=== PATIENT | female | born 1985 | race Caucasian/White ===

== ENCOUNTER → 2023-07-04 | Outpatient (CLI) | payer BC, SELFPAY | END | disposition home or self-care (01) | LOC: LABSPEC 15:56 | PROVIDERS: Referring Provider Internal Medicine Pulmonary Disease; Visit Provider Internal Medicine Pulmonary Disease | DX: G47.411 Narcolepsy with cataplexy (principal) ==

== ENCOUNTER → 2023-07-18 | Outpatient (CLI) | payer BC, SELFPAY ==
[2023-07-18 18:26] LABS: Amphetamine Urine VISTA NEGATIVE (<1000 ng/mL); Barbiturate Urine VISTA NEGATIVE (< 200 ng/mL); Benzodiazepine Urine VISTA NEGATIVE (< 200 ng/mL); Cocaine Urine VISTA NEGATIVE (< 300 ng/mL); Ecstacy Urine VISTA NEGATIVE (< 500 ng/mL); Methadone Urine VISTA NEGATIVE (< 300 ng/mL); PCP Urine VISTA NEGATIVE (< 25 ng/mL); THC Urine VISTA NEGATIVE (< 50 ng/mL); Vista UDS pH Range 6
== END | disposition home or self-care (01) ==
PROVIDERS: Referring Provider Internal Medicine Pulmonary Disease; Visit Provider Internal Medicine Pulmonary Disease
DX: G47.411 Narcolepsy with cataplexy (principal)
CPT/HCPCS: 80307

== ENCOUNTER → 2024-02-11 | Outpatient (CLI) | payer BC, SELFPAY ==
[2024-02-11 18:58] LABS: Amphetamine Urine VISTA NEGATIVE (<1000 ng/mL); Barbiturate Urine VISTA NEGATIVE (< 200 ng/mL); Benzodiazepine Urine VISTA NEGATIVE (< 200 ng/mL); Cocaine Urine VISTA NEGATIVE (< 300 ng/mL); Ecstacy Urine VISTA NEGATIVE (< 500 ng/mL); Methadone Urine VISTA NEGATIVE (< 300 ng/mL); PCP Urine VISTA NEGATIVE (< 25 ng/mL); THC Urine VISTA NEGATIVE (< 50 ng/mL); Vista UDS pH Range 6
== END | disposition home or self-care (01) ==
PROVIDERS: Referring Provider Internal Medicine Pulmonary Disease; Visit Provider Internal Medicine Pulmonary Disease
DX: G47.411 Narcolepsy with cataplexy (principal)
CPT/HCPCS: 80307

== ENCOUNTER → 2025-01-07 | Outpatient (CLI) | payer BC, SELFPAY ==
--- NOTE | 2025-01-07 18:56 | CT_ITS ---
PROCEDURE: SINUS/FACIAL BONE REASON FOR EXAM: FISTULA TECHNIQUE: CT of the paranasal sinuses without contrast. Coronal and Sagittal reconstruction series were provided. One or more dose reduction techniques were used (e.g., Automated exposure control, adjustment of the mA and/or kV according to patient size, use of iterative reconstruction technique). COMPARISON: None FINDINGS: Mild bilateral maxillary and left sphenoid sinus mucosal thickening. Tiny fluid level in the right maxillary sinus. 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 Ethmoid air cells and frontal sinuses are clear. Patent bilateral ostiomeatal units and sphenoethmoidal recesses. Turbinates are symmetric and intact. Moderate rightward nasal septal deviation. Mastoid air cells and middle ear cavities are clear. Temporomandibular joints are intact. CT/Sinus/Facial Bone IMPRESSION: 1. 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 2. Minimal bilateral maxillary and left sphenoid sinus mucosal thickening as ab ove. 3. Moderate rightward nasal septal deviation. Reading Location: [place]
--- OUTSIDE RECORDS SUMMARY | 2025-01-07 19:28 | XMS RPT_ITS | CCD ---
Author Organization [facility] Care Team Providers Care Heel Molder Name Role Phone Nicholasdamiencarmel Sheryl Unavailable Unavailable Pending Provider Unavailable Unavailable None, No PCP Unavailable Unavailable Marcelle Aiken Unavailable Unavailable Molly Cohen Unavailable Unavailable Sheryl Baldwin Unavailable Unav ailable Roz Jose Armando V Unavailable Unavailable Armando Carmona Unavailable Unavailable Andreina Singh Unavailable Unavailable TIRSO ALEX Attending Unavaila TIRSO Rodarte Attending Unavaila Molly Moon Unavailable Unavailable Unavailable Free, Text Entry Unavailable Unavailable Molly Cohen Unavailable Scot Vargas Unavailable Wendi Banuelos Unavailable Umberto Cano Unavailable UnavailMolly Sanchez DO Primary Care Provider Harris Mcdaniels Unavailable Unavailable Sheryl Mesa Unavailable Unav ailable Bruno Beck Unavailable Dr. Molly Cohen Attending Unavailable Mali, Dr. Nelson Referring Unavailable Dr. Molly Cohen Primary Care Unavailable Dr. Molly Cohen Primary Care Unavailable Mali, Dr. Nelson Attending Unavailable Mali, Dr. Nelson Referring Unavailable Wendi Banuelos Attending Unavailable Mali, Dr. Nelson Primary Care Unavailable Mali, Dr. Nelson Primary Care Unavailable Mali, Dr. Nelson Attending Unavailable Mali, Dr. Nelson Referring Unavailable Mali, Dr. Nelson Primary Care Unavailable Mali, Dr. Nelson Attending Unavailable Mali, Dr. Nelson Referring Unavailable Cohen, Dr. Nelson Referring Unavailable Cohen, Dr. Nelson Attending Unavailable Cohen, Dr. Nelson Primary Care Unavailable Cohen, Dr. Nelson Referring Unavailable Cohen, Dr. Nelson Attending Unavailable Cohen, Dr. Nelson Primary Care Unavailable Cohen, Dr. Nelson Referring Unavailable Cohen, Dr. Nelson Attending Unavailable Cohen, Dr. Nelson Primary Care Unavailable Cohen DO, Molly A Primary Care Provider Cohen DOBitaMolly A Unavailable Cohen DO, Molly Primary Care Provider [phone] COHEN, MOLLY Primary Care Unavailable ANDREINA SINGH Attending Unavailable Mcdaniels, Dr. Harris Louis Attending Unavaila ble COHEN, DO WALLACETH Primary Care Unavailable Sibilia, Jose Armando V Attending Unavailable Sibilia, Jose Armando V Referring Unavailable Care Physician, No Primary Primary Care Unava ilable Sibilia, Jose Armando V Attending Unavailable Care Physician, No Primary Primary Care Unava ilable Sibilia, Jose Armando V Referring Unavailable Sibilia, Jose Armando V Attending Unavailable Sibilia, Jose Armando V Referring Unavailable Care Physician, No Primary Primary Care Unava ilable COHEN, MOLLY A Attending Unavailable COHEN, MOLLY A Primary Care Unavailable COHEN, MOLLY A Attending Unavailable COHEN, MOLLY A Primary Care Unavailable COHEN, MOLLY A Referring Unavailable COHEN, MOLLY A Primary Care Unavailable COHEN, MOLLY A Referring Unavailable COHEN, MOLLY A Primary Care Unavailable COHEN, MOLLY A Primary Care Unavailable CAROLYN SAAVEDRA Attending Unavailable CAROLYN SAAVEDRA Referring Unavailable COHEN, MOLLY A Primary Care Unavailable Medications Current Medications Medication Drug Class(es) Dates Sig (Normalized) Sig (Original) [id number] 200 actuat albuterol 0.09 mg/actuat metered dose inhaler (2 sources) beta2-Adrenergic Agonist Start: 08-02-2024 End: 09-01-2024 take 2 puff(s) by inhalation every four hours for wheezing albuterol 90 mcg/actuation inhaler Indications: Acute cough Inhale 2 puffs every 4 hours if needed for wheezing or shortness of breath. 18 g 08/02/2024 09/01/2024 Active amoxicillin 875 mg / clavulanate 125 mg oral tablet (17 sources) Penicillin-class Antibacterial Start: 07-06-2024 End: 07-13-2024 take 1 tablet by mouth twice daily amoxicillin-pot clavulanate (Augmentin) 875-125 mg tablet Indications: Acute cough Take 1 tablet by mouth 2 times a day for 7 days. 14 tablet 07/06/2024 07/13/2024 Active Start: 09-10-2022 take 1 tablet by haley once daily Amoxicillin-Pot Clavulanate 875-125 MG Oral Tablet TAKE 1 TABLET EVERY 12 HOURS DAILY. Quantity: 14 Refills: 0 Ordered: 10-Sep-2022 Mali WILKINSON Molly Start : 10-Sep-2022 Active Start: 11-27-2020 End: 05-03-2021 take 1 tablet by mouth once daily Amoxicillin-Pot Clavulanate 875-125 MG Oral Tablet TAKE 1 TABLET EVERY 12 HOURS DAILY. Quantity: 14 Refills: 0 Ordered: 17-Apr-2021 Marcelle Keyes Start : 27-Nov-2020 End : 03-May-2021 Complete amphetamine aspartate 2.5 mg / amphetamine sulfate 2.5 mg / dextroamphetamine saccharate 2.5 mg / dextroamphetamine sulfate 2.5 mg oral tablet (20 sources) Central Nervous System Stimulant Start: 05-24-2021 End: 07-06-2024 dextroamphetamine-amphetamin e (ADDERALL) 10 mg tablet Start: 01-23-2015 End: 07-06-2024 take 1 tablet by mouth twice daily Dextroamphetamine-Amphetamine (Adderall 20 Mg Tablet) 20 MG tablet Active 20 MG PO TWICE A DAY January 22, 2015 11:00pm benzonatate 100 mg oral capsule (4 sources) Non-narcotic Antitussive Start: 07-06-2024 take 1 capsule by mouth three times daily as needed for cough benzonatate (Tessalon) 100 mg capsule Indications: Acute cough Take 1 capsule (100 mg) by mouth 3 times a day as needed for cough. Do not crush or chew. 30 capsule 07/06/2024 Active busPIRone hydrochloride 5 mg oral tablet (6 sources) Start: 06-04-2023 End: 07-06-2024 take 1 tablet by mouth twice daily as needed for anxiety busPIRone (Buspar) 5 mg tablet Indications: Anxiety Take 1 tablet (5 mg) by mouth 2 times a day as needed (anxiety). 60 tablet 1 10/22/2023 07/06/2024 Discontinued (Therapy completed) calcium chloride 0.0014 meq/ml / potassium chloride 0.004 meq/ml / sodium chloride 0.103 meq/ml / sodium lactate 0.028 meq/ml injectable solution (4 sources) Start: 06-10-2023 lactated Ringer's infusion Start: 05-13-2023 lactated Ringe r's infusion cephalexin 500 mg oral capsule (3 sources) Cephalosporin Antibacterial Start: 05-01-2023 End: 05-07-2023 take 1 capsule by mouth four times daily cephalexin 500 mg oral capsule ; 1 cap(s) orally 4 times a day Quantity: 28 Refills: 0 Ordered: 01-May-2023 Harris Mcdaniels Start: 01-May-2023 End: 07-May-2023 Generic Substitution Allowed Comments: Finish all this medication unless otherwise directed by prescriber. Start: 09-03-2021 take 1 tablet by haley four times daily Cephalexin 500 MG Oral Tablet TAKE 1 TABLET 4 TIMES DAILY Quantity: 20 Refills: 0 Ordered: 03-Sep-2021 Molly Cohen DO Start : 03-Sep-2021 Active Comment on above: Finish all this medi cation unless otherwise directed by prescriber. cetirizine hydrochloride 10 mg oral tablet (20 sources) Histamine-1 Receptor Antagonist Start: 05-24-20 End: 05-12-20 cetirizine (ZYRTEC) 10 MG tablet ciprofloxacin 500 mg oral tablet (1 source) Quinolone Antimicrobial Start: 05-13-20 End: 05-16-20 23 take 0.5 tablet by mouth twice daily ciprofloxacin (Cipro) 500 mg tablet Indications: Other hydronephrosis , Calculus of ureter Take 0.5 tablets (250 mg) by mouth 2 times a day for 3 days. 3 tablet 0 05/13/2023 05/16/2023 Active clindamycin 300 mg oral capsule (2 sources) Lincosamide Antibacterial Start: 08-02-20 24 End: 08-12-19 25 take 1 capsule by mouth three times daily clindamycin (Cleocin) 300 mg capsule Indications: Dental cavity Take 1 capsule (300 mg) by mouth 3 times a day for 10 days. 30 capsule 08/02/2024 08/12/2024 Active escitalopram 20 mg oral tablet (11 sources) Serotonin Reuptake Inhibitor Start: 10-02-19 End: 10-01-19 take 1 tablet by mouth once daily escitalopram (Lexapro) 20 mg tablet Indications: Anxiety Take 1 tablet (20 mg) by mouth once daily. 90 tablet 1 10/02/2023 07/06/2024 Discontinued (Therapy completed) Start: 06-04-2023 End: 12-01-2023 take 1 tablet by mouth once daily escitalopram (Lexapro) 10 mg tablet Indications: Anxiety Take 1 tablet (10 mg) by mouth once daily. 30 tablet 1 08/07/2023 10/02/2023 Discontinued (Reorder) Start: 12-25-2022 End: 05-12-2023 take 1 tablet by mouth once daily escitalopram (Lexapro) 10 mg tablet Indications: Anxiety Take 1 tablet (10 mg) by mouth once daily. 90 tablet 0 12/25/2022 05/12/2023 Discontinued (Other) Start: 03-27-2022 take 1 tablet by haley once daily Escitalopram Oxalate 10 MG Oral Tablet Take 1 tablet daily Quantity: 30 Refills: 3 Ordered: 27-Mar-2022 Molly Cohen DO Start : 27-Mar-2022 Active fluconazole 150 mg oral tablet (16 sources) Azole Antifungal Start: 07-06-2024 End: 07-06-2024 take 1 tablet by mouth once, then take 1 tablet by mouth every other day fluconazole (Diflucan) 150 mg tablet Indications: Acute cough Take 1 tablet (150 mg) by mouth 1 time for 1 dose. Take additional tablet 2d later if still having symptoms 2 tablet 07/06/2024 07/06/2024 Active Start: 05-01-2023 End: 05-01-2023 take 1 tablet by mouth once daily Diflucan 150 mg oral tablet ; 1 tab(s) orally once a day Quantity: 1 Refills: 0 Ordered: 01-May-2023 Harris Mcdaniels Start: 01-May-2023 End: 01-May-2023 Generic Substitution Allowed Comments: Do not take this drug if you are .Finish all this medication unless otherwise directed by prescriber. Start: 05-08-2022 Fluconazole 15 0 MG Oral Tablet TAKE 1 TABLET ONCE. MAY REPEAT IN 2 DAYS.. Quantity: 2 Refills: 0 Ordered: 03-Jul-2022 Mali WILKINSON Molly Start : 03-Jul-2022 Active Start: 07-05-2021 Fluconazole 15 0 MG Oral Tablet TAKE 1 TABLET ONCE. MAY REPEAT IN 2 DAYS.. Quantity: 2 Refills: 0 Ordered: 03-Sep-2021 Cohen Molly WILKINSON Start : 05-Jul-2021 Active Comment on above: Do not take this walter g if you are .Finish all this medication unless otherwise directed by prescriber. HYDROmorphone (2 sources) Opioid Agonist Start: 06-10-20 23 HYDROmorphone (Dilaudid) injection 0.5 mg hydrOXYzine pamoate 25 mg oral capsule (3 sources) Antihistamine Start: 06-04-20 23 End: 07-06-20 24 hydrOXYzine pamoate (VistariL) 25 mg capsule Indications: Anxiety Take 1 capsule (25 mg) by mouth as needed at bedtime for anxiety for up to 10 days. 30 capsule 1 06/04/2023 07/06/2024 Discontinued (Therapy completed) labetalol hydrochloride 5 mg/ml injectable solution (1 source) beta-Adrenergic Kortney Start: 05-13-20 labetaloL (Normodyne,Trandate) injection 5 mg loratadine 10 mg oral tablet (4 sources) take 1 tablet by mouth once daily as needed Claritin 10 mg oral tablet ; 1 tab(s) orally once a day, As Needed Quantity: 0 Refills: 0 Ordered: 18-May-2020 Starr Waite Status: Other Generic Substitution Allowed 1 ml meperidine hydrochloride 25 mg/ml cartridge (1 source) Opioid Agonist Start: 06-10-20 meperidine (PF) (Demerol) injection 12.5 mg 1 ml morphine sulfate 4 mg/ml prefilled syringe (2 sources) Opioid Agonist Start: 05-13-20 morphine injection 4 mg Start: 05-13-2023 morphine injec tion 2 mg Multivitamin preparation (5 sources) take 1 tablet by mouth once daily Multiple Vitamins oral tablet ; 1 tab(s) orally once a day Quantity: 0 Refills: 0 Ordered: 30-Jun-2020 Nadege Hoyos Generic Substitution Allowed naproxen sodium 550 mg oral tablet (4 sources) Nonsteroidal Anti-inflammatory Drug Start: 6 End: 6 take 550 mg by mouth every twelve hours as needed Naproxen Sodium Active 550 MG PO EVERY 12 HOURS NEEDED December 27, 2015 6:56am omeprazole 20 mg delayed release oral capsule (20 sources) Proton Pump Inhibitor Start: 1 End: 3 omeprazole (PRILOSEC) 20 MG capsule Start: 10-23-2015 take 10 mg by mouth once daily Omeprazole Active 10 MG PO DAILY October 22, 2015 11:00pm PriLOSEC ; orall y once a day Quantity: 0 Refills: 0 Ordered: 04-Apr-2020 Viviana Carl Status: Discontinued Generic Substitution Allowed 2 ml ondansetron 2 mg/ml injection (4 sources) Serotonin-3 Receptor Antagonist Start: 06-10-2023 End: 06-10-2023 ondansetron (Zofran) injection 4 mg Start: 05-13-2023 End: 05-13-2023 ondansetron (Zofran) injecti on 4 mg oxyCODONE hydrochloride 5 mg oral tablet (2 sources) Opioid Agonist Start: 06-10-2023 take 1 tablet by mouth every four hours as needed oxyCODONE (Roxicodone) immediate release tablet 5 mg Start: 05-13-2023 take 1 tablet by haley th every four hours as needed oxyCODONE (Roxicodone) immediate release tablet 5 mg oxygen (O2) therapy (1 source) Start: 06-10-2023 oxygen (O2) therapy phenazopyridine hydrochloride 200 mg oral tablet (1 source) Start: 05-13-2023 End: 05-20-2023 take 1 tablet by mouth three times daily as needed for muscle spasms phenazopyridine (Pyridium) 200 mg tablet Indications: Other hydronephrosis , Calculus of ureter Take 1 tablet (200 mg) by mouth 3 times a day as needed for bladder spasms for up to 7 days. 21 tablet 0 05/13/2023 05/20/2023 Active prenat.vits,misti,min- iron-folic Tab (2 sources) prenat.vits,misti, min -iron-folic Tab Take by mouth . 0 Active 1 oral capsule (4 sources) take 1 capsule by mouth once daily 1 oral capsule ; orally once a day Quantity: 0 Refills: 0 Ordered: 04-Apr-2020 Viviana Carl Status: Discontinued Generic Substitution Allowed Vit No.[id number] ( Vitamin Tablet) 1 EACH tablet (2 sources) Start: 01-23-2015 Vit No.[id number] ( Vitamin Tablet) 1 EACH tablet Active 1 EACH PO DAILY January 22, 2015 11:00pm promethazine hydrochloride 25 mg oral tablet (4 sources) Phenothiazine Start: 10-05-2019 take 1 tablet by mouth three times daily for nausea and vomiting promethazine 25 mg oral tablet ; 1 tab(s) orally 3 times a day, As Needed -for nausea and vomiting Quantity: 12 Refills: 0 Ordered: 04-Oct-2019 Kody Fernandez I Start: 04-Oct-2019 Status: Discontinued Generic Substitution Allowed Comments: May cause drowsiness. Alcohol may intensify this effect. Use care when operating dangerous machinery.Obtain medical advice before taking any non-prescription drugs as some may affect the action of this medication. Comment on above: May cause drowsiness . Alcohol may intensify this effect. Use care when operating dangerous machinery.Obtain medical advice before taking any non-prescription drugs as some may affect the action of this medication. promethazine (Phenergan) 6.25 mg in sodium chloride 0.9% 50 mL IV (2 sources) Start: 06-10-2023 promethazine (Phenergan) 6.25 mg in sodium chloride 0.9% 50 mL IV Start: 05-13-2023 End: 05-13-2023 promethazine (Phenergan) 6.2 5 mg in sodium chloride 0.9% 50 mL IV 72 hr scopolamine 0.0139 mg/hr transdermal system (1 source) Anticholinergic Start: 06-10-2023 scopolamine (Transderm-Scop) patch 1 patch tretinoin 0.25 mg/ml topical cream (12 sources) Retinoid Start: 10-22-2023 End: 07-06-2024 tretinoin (Retin-A) 0.025 % cream Indications: Chronic idiopathic urticaria Apply 1 Application topically once daily at bedtime. 45 g 1 10/22/2023 07/06/2024 Discontinued (Therapy completed) Start: 12-25-2021 Tretinoin 0.02 5 % External Cream APPLY SPARINGLY TO AFFECTED AREA(S) ONCE DAILY AT BEDTIME. Quantity: 1 Refills: 1 Ordered: 25-Dec-2021 Mali WILKINSON Molly Start : 25-Dec-2021 Active Start: 05-28-2021 End: 05-12-2023 tretinoin (Retin-A) 0.025 % cream Apply 1 Application topically once daily at bedtime. Apply sparingly to affected area once daily at bedtime 0 12/25/2021 05/12/2023 Discontinued (Other) triamcinolone acetonide 1 mg/ml topical cream (20 sources) Corticosteroid Start: 04-25-2021 triamcinolone (KENALOG) 0.1 % cream Start: 01-26-2021 End: 04-25-2021 Triamcinolone Acetonide 0.1 % External Cream APPLY A THIN LAYER TO AFFECTED AREA(S) TWICE DAILY. Quantity: 1 Refills: 0 Ordered: 26-Jan-2021 Molly Cohen DO Start : 26-Jan-2021 End : 25-Apr-2021 Complete Start: 11-27-2020 End: 05-12-2023 triamcinolone (Kenalog) 0.1 % cream Apply 1 Application topically in the morning and 1 Application before bedtime. 0 11/27/2020 05/12/2023 Discontinued (Other) Start: 11-27-2020 Triamcinolone Acetonide 0.1 % External Cream APPLY A THIN LAYER TO AFFECTED AREA(S) TWICE DAILY. Quantity: 1 Refills: 0 Ordered: 28-Dec-2021 Molly Cohen DO Start : 27-Nov-2020 Active Start: 11-27-2020 Triamcinolone Acetonide 0.1 % External Cream APPLY A THIN LAYER TO AFFECTED AREA(S) TWICE DAILY. Quantity: 1 Refills: 0 Ordered: 03-Sep-2021 Molly Cohen DO Start : 27-Nov-2020 Active Start: 11-27-2020 Triamcinolone Acetonide 0.1 % External Cream APPLY A THIN LAYER TO AFFECTED AREA(S) TWICE DAILY. Quantity: 1 Refills: 0 Ordered: 25-Apr-2021 Attila 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CAROLYNNMarcelle Start : 27-Nov-2020 Active Start: 11-27-2020 Triamcinolone Acetonide 0.1 % External Cream APPLY A THIN LAYER TO AFFECTED AREA(S) TWICE DAILY. Quantity: 1 Refills: 0 Ordered: 27-Nov-2020 Molly Cohen DO Start : 27-Nov-2020 Active Completed/Discontinued Medications Medication Drug Class(es) Dates Sig (Normalized) Sig (Original) acetaminophen 325 mg oral tablet (2 sources) Start: 06-10-2023 End: 06-10-2023 acetaminophen (Tylenol) tablet 975 mg Start: 05-13-2023 End: 05-13-2023 acetaminophen (Tylenol) tabl et 975 mg acetaminophen 325 mg / HYDROcodone bitartrate 10 mg oral tablet (7 sources) Opioid Agonist Start: 06-10-2023 End: 10-02-2023 take 1 tablet by mouth every six hours for pain HYDROcodone-acetaminophen (Elmira) 10-325 mg tablet Indications: Kidney stone Take 1 tablet by mouth every 6 hours if needed for severe pain (7 - 10). 20 tablet 0 06/10/2023 10/02/2023 Discontinued (Therapy completed) Start: 05-13-2023 End: 06-04-2023 take 1 tablet by mouth every six hours for pain HYDROcodone-acetaminophen (Elmira) 10-325 mg tablet Indications: Other hydronephrosis , Calculus of ureter Take 1 tablet by mouth every 6 hours if needed for severe pain (7 - 10). 20 tablet 0 05/13/2023 06/04/2023 Discontinued (Therapy completed) Start: 05-01-2023 take 1 tablet by haley th every six hours hydrocodone-acetaminophen 5 mg-325 mg or al tablet ; 1 tab(s) orally every 6 hours Quantity: 12 Refills: 0 Ordered: 01-May-2023 Harris Mcdaniels Start: 01-May-2023 Generic Substitution Allowed Comments: Caution federal law prohibits the transfer of this drug to any person other than the person for whom it was prescribed.May cause drowsiness. Alcohol may intensify this effect. Use care when operating dangerous machinery.This product contains acetaminophen. Do not use with any other product containing acetaminophen to prevent possible liver damage.Using more of this medication than prescribed may cause serious breathing problems. Comment on above: Caution federal law prohibits the transfer of this drug to any person other than the person for whom it was prescribed.May cause drowsiness. Alcohol may intensify this effect. Use care when operating dangerous machinery.This product contains acetaminophen. Do not use with any other product containing acetaminophen to prevent possible liver damage.Using more of this medication than prescribed may cause serious breathing problems. acetaminophen 325 mg / oxyCODONE hydrochloride 5 mg oral tablet (5 sources) Opioid Agonist Start: 05-05-20 End: 05-12-20 take 1 tablet by mouth every six hours for pain oxyCODONE-acetaminop hen (Percocet) 5-325 mg tablet Indications: Right ureteral calculus , Acute flank pain Take 1 tablet by mouth every 6 hours if needed for severe pain (7 - 10) for up to 7 days. 5 tablet 0 05/05/2023 05/12/2023 Discontinued (Other) Start: 12-27-2015 End: 12-27-2015 take 1 tablet by mouth every six hours as needed Oxycodone-Acetaminophen Active 1 - 2 TABLET PO EVERY 6 HOURS NEEDED December 27, 2015 6:56am Multivitamin TABS (3 sources) Vitamin C Multivitamin TAB S TAKE 1 TABLET DAILY. Refills: 0 Active Multivitamin TAB S TAKE 1 TABLET DAILY. Refills: 0 DO Active azithromycin 250 mg oral tablet (6 sources) Macrolide Antimicrobial Start: 07-05-2021 Azithromycin 250 MG Oral Tablet TAKE 2 TABLETS ON DAY 1 THEN TAKE 1 TABLET A DAY FOR 4 DAYS. Quantity: 1 Refills: 0 Ordered: 05-Jul-2021 Molly Cohen DO Start : 05-Jul-2021 Active benzocaine 0.2 mg/mg oral gel (20 sources) Standardized Chemical Allergen Start: 07-25-2020 End: 05-12-2023 benzocaine (Anbesol, benzocaine, Max Str) 20 % mucosal gel Take by mouth. 0 07/25/2020 05/12/2023 Discontinued (Other) Start: 07-25-2020 Anbesol Maximu m Strength 20 % Mouth/Throat Gel USE DIRECTED. Quantity: 3 Refills: 2 Ordered: 25-Jul-2020 Molly Cohen DO Start : 25-Jul-2020 Active brompheniramine maleate 0.4 mg/ml / dextromethorphan hydrobromide 2 mg/ml / pseudoephedrine hydrochloride 6 mg/ml oral solution (1 source) alpha-Adrenergic Agonist, Uncompetitive W-mjxzyv-T-aspartate Receptor Antagonist, Sigma-1 Agonist Start: 07-03-2022 take 5 mL by mouth every four to six hours as needed Embcarcub-Tlfzusmi-HC 30-2-10 MG/5ML Oral Syrup TAKE 5 ML EVERY 4 TO 6 HOURS NEEDED. Quantity: 1 Refills: 0 Ordered: 03-Jul-2022 Molly Cohen DO Start : 03-Jul-2022 Active 1 ml dexamethasone phosphate 10 mg/ml injection (2 sources) Corticosteroid Start: 06-10-2023 End: 06-10-2023 dexAMETHasone (PF) (Decadron) injection 10 mg Start: 05-13-2023 End: 05-13-2023 dexAMETHasone (PF) (Decadron ) injection 8 mg diphenhydrAMINE hydrochloride 25 mg oral capsule (5 sources) Histamine-1 Receptor Antagonist Start: 05-07-2020 End: 05-08-2020 take 1 capsule by mouth every four hours as needed Allergy Relief (Diphenhydramine HCl) 25 mg oral capsule ; 1 cap(s) orally every 4 hours, As Needed Quantity: 100 Refills: 0 Ordered: 07-May-2020 Eliud Quinones Start: 07-May-2020 End: 08-May-2020 Generic Substitution Allowed Comments: May cause drowsiness. Alcohol may intensify this effect. Use care when operating dangerous machinery.Obtain medical advice before taking any non-prescription drugs as some may affect the action of this medication. Comment on above: May cause drowsiness . Alcohol may intensify this effect. Use care when operating dangerous machinery.Obtain medical advice before taking any non-prescription drugs as some may affect the action of this medication. [id number] 0.3 ml EPINEPHrine 1 mg/ml auto-injector (20 sources) alpha-Adrenergic Agonist, beta-Adrenergic Agonist, Catecholamine Start: 09-26-2020 End: 09-26-2020 inject 0.3 mg by intramuscular injection once EPINEPHrine 0.3 mg injectable kit ; 0.3 milligram(s) intramuscularly once Quantity: 1 Refills: 0 Ordered: 26-Sep-2020 Rafi Groves Start: 26-Sep-2020 End: 26-Sep-2020 Generic Substitution Allowed Comments: Obtain medical advice before taking any non-prescription drugs as some may affect the action of this medication. Start: 07-13-2020 inject 0.3 mL by int ramuscular injection once EPINEPHrine 0.3 MG/0.3ML Injection Solution Auto-injector INJECT 0.3ML INTRAMUSCULARLY DIRECTED. Quantity: 2 Refills: 1 Ordered: 10-Jul-2021 Sheryl Lin DO Start : 13-Jul-2020 Active Must use [facility] [id number] per insurance. Start: 06-30-2020 End: 07-02-2020 EpiPen 2-Igor 0.3 mg injectab le kit ; 0.3 milligram(s) intramuscularly prn Quantity: 2 Refills: 2 Ordered: 30-Jun-2020 Rolo Quinonesew Start: 30-Jun-2020 End: 02-Jul-2020 Generic Substitution Allowed Comments: Obtain medical advice before taking any non-prescription drugs as some may affect the action of this medication. Start: 05-28-2020 EpiPen 2-Igor 0 .3 mg injectable kit ; 0.3 milligram(s) intramuscularly once, As Needed -for allergy symptoms /anaphylaxis Quantity: 1 Refills: 0 Ordered: 28-May-2020 Nanette Polk Start: 28-May-2020 Generic Substitution Allowed Comments: Obtain medical advice before taking any non-prescription drugs as some may affect the action of this medication. Start: 05-02-2020 Auvi-Q 0.3 MG/ 0.3ML Injection Solution Auto-injector INJECT 0.3ML INTRAMUSCULARLY DIRECTED. Quantity: 1 Refills: 2 Ordered: 02-May-2020 Sheryl Lin DO Start : 02-May-2020 Active Start: 05-02-2020 Auvi-Q 0.3 MG/ 0.3ML Injection Solution Auto-injector INJECT 0.3ML INTRAMUSCULARLY DIRECTED. Quantity: 1 Refills: 2 Sheryl Lin DO Start : 02-May-2020 Active 2 Unit Pen Start: 05-01-2020 End: 05-12-2023 EPINEPHrine 0.3 mg/0.3 mL injection syringe Inject 0.3 mL (0.3 mg) as directed. As Directed 0 05/01/2020 05/12/2023 Discontinued (Other) Start: 05-01-2020 EPINEPHrine (E PIPEN) 0.3 mg/0.3 mL AtIn Start: 05-01-2020 EPINEPHrine 0. 3 MG/0.3ML Injection Solution Auto-injector INJECT 0.3ML INTRAMUSCULARLY DIRECTED. Quantity: 2 Refills: 1 Riley Sheryl Start : 13-Jul-2020 Active 2 Unit Pen Comment on above: Obtain medical advic e before taking any non-prescription drugs as some may affect the action of this medication. 2 ml famotidine 10 mg/ml injection (20 sources) Histamine-2 Receptor Antagonist Start: 06-10-2023 End: 06-10-2023 famotidine PF (Pepcid) injection 20 mg Start: 2020 End: 05-12-2023 famotidine (PEPCID) 40 MG ta blet take 1 tablet by haley th once daily Pepcid 20 mg oral tablet ; 1 tab(s) orally once a day Quantity: 0 Refills: 0 Ordered: 30-Jun-2020 Rusiska, Nadege Generic Substitution Allowed Comment on above: It is very important that you take or use this exactly as directed. Do not skip doses or discontinue unless directed by your doctor.Obtain medical advice before taking any non-prescription drugs as some may affect the action of this medication. fluticasone propionate 0.05 mg/actuat metered dose nasal spray (5 sources) Corticosteroid Start: 11-21-19 End: 05-12-20 take 1 spray(s) nasal route in the morning fluticasone (Flonase) 50 mcg/actuation nasal spray Administer 1 spray into each nostril in the morning and 1 spray before bedtime. 0 11/20/2022 05/12/2023 Discontinued (Other) Start: 07-03-2022 take 1 spray(s) nasa l route twice daily Fluticasone Propionate 50 MCG/ACT Nasal Suspension USE 1 SPRAY IN EACH NOSTRIL TWICE DAILY. Quantity: 1 Refills: 1 Ordered: 10-Sep-2022 Molly Cohen DO Start : 10-Sep-2022 Active levETIRAcetam 750 mg oral tablet (4 sources) Start: 05-18-2020 End: 05-31-2020 take 1 tablet by mouth twice daily Keppra 750 mg oral tablet ; 1 tab(s) orally 2 times a day x 14 days Quantity: 28 Refills: 0 Ordered: 18-May-2020 Kody Fernandez I Start: 18-May-2020 End: 31-May-2020 Status: Discontinued Generic Substitution Allowed Comments: Check with your doctor before becoming .It is very important that you take or use this exactly as directed. Do not skip doses or discontinue unless directed by your doctor.May cause drowsiness or dizziness.Obtain medical advice before taking any non-prescription drugs as some may affect the action of this medication.Swallow whole. Do not crush.This drug may impair the ability to drive or operate machinery. Use care until you become familiar with its effects. Comment on above: Check with your doct or before becoming .It is very important that you take or use this exactly as directed. Do not skip doses or discontinue unless directed by your doctor.May cause drowsiness or dizziness.Obtain medical advice before taking any non-prescription drugs as some may affect the action of this medication.Swallow whole. Do not crush.This drug may impair the ability to drive or operate machinery. Use care until you become familiar with its effects. Lidocaine (2 sources) Antiarrhythmic, Amide Local Anesthetic Start: 06-07-2021 End: 06-07-2021 lidocaine 20 mg/mL (2 %) injection 3 mL meloxicam 7.5 mg oral tablet (2 sources) Nonsteroidal Anti-inflammatory Drug Start: 05-26-2020 take 1 tablet by mouth once daily at mealtime Meloxicam 7.5 MG Oral Tablet TAKE 1 TABLET DAILY WITH FOOD. Quantity: 14 Refills: 0 Marcelle Keyes Start : 26-May-2020 Active 5 ml midazolam 1 mg/ml injection (1 source) Benzodiazepine Start: 06-10-2023 End: 06-10-2023 midazolam (Versed) injection 1 mg multivitamin tablet (2 sources) End: 05-12-2023 take 1 tablet by mouth once daily multivitamin tablet Take 1 tablet by mouth once daily. 0 05/12/2023 Discontinued (Other) take 1 tablet by mouth once sarmad y multivitamin tablet Take 1 tablet by mouth once daily. 0 Active Multivitamin TABS (20 sources) Multivitamin TAB S TAKE 1 TABLET DAILY. Quantity: 0 Refills: 0 Ordered: 27-Jun-2020 DO Active 1 ml omalizumab 150 mg/ml prefilled syringe (20 sources) Anti-IgE Start: 07-13-2020 Xolair 150 MG/ML Subcutaneou s Solution Prefilled Syringe 150mg/ml prefilled syringe, Give 300mg subcutaneously today Quantity: 1 Refills: 0 Ordered: 22-Jun-2021 Sheryl Lin DO Start : 22-Jun-2021 Active R Deltoid Start: 07-04-2020 Xolair 150 MG/ ML Subcutaneous Solution Prefilled Syringe 300 mg subcutaneous injection every 4 weeks Quantity: 2 Refills: 11 Ordered: 22-Jun-2021 Sheryl Lin DO Start : 04-Jul-2020 Active Prior Auth Approved #[id number], from 12/19/2020 - 12/19/2021 predniSONE 10 mg oral tablet (20 sources) Start: 06-28-2021 End: 07-02-2021 take 5 tablets by mouth once daily at mealtime predniSONE 10 mg oral tablet ; 5 tab(s) orally once a day Quantity: 25 Refills: 0 Ordered: 28-Jun-2021 Harris Mcdaniels Start: 28-Jun-2021 End: 02-Jul-2021 Generic Substitution Allowed Comments: It is very important that you take or use this exactly as directed. Do not skip doses or discontinue unless directed by your doctor.Obtain medical advice before taking any non-prescription drugs as some may affect the action of this medication.Take with food or milk. Start: 06-04-2021 predniSONE (DE LTASONE) 10 MG tablet Start: 05-03-2021 take 1 tablet by haley th twice daily predniSONE 20 MG Oral Tablet TAKE 1 TABLET TWICE DAILY. Quantity: 20 Refills: 0 Ordered: 03-May-2021 Marcelle Keyes Start : 03-May-2021 Active Start: 05-03-2021 End: 09-25-2021 predniSONE 5 MG Oral Tablet TAKE 1 TABLET DIRECTED. Quantity: 10 Refills: 0 Ordered: 05-Sep-2021 Molly Cohen DO Start : 03-May-2021 End : 25-Sep-2021 Complete Start: 06-03-2020 End: 06-07-2020 take 2 tablets by mouth once daily at mealtime Deltasone 20 mg oral tablet ; 2 tab(s) orally once a day Quantity: 10 Refills: 0 Ordered: 03-Jun-2020 Sam Scot Edgar Start: 03-Jun-2020 End: 07-Jun-2020 Status: Other Generic Substitution Allowed Comments: It is very important that you take or use this exactly as directed. Do not skip doses or discontinue unless directed by your doctor.Obtain medical advice before taking any non-prescription drugs as some may affect the action of this medication.Take with food or milk. Start: 05-18-2020 End: 05-22-2020 take 2 tablets by mouth once daily as needed Deltasone 20 mg oral tablet ; 2 tab(s) orally once a day as needed after 2nd day Quantity: 10 Refills: 0 Ordered: 18-May-2020 Sam Scot Edgar Start: 18-May-2020 End: 22-May-2020 Status: Other Generic Substitution Allowed Comments: It is very important that you take or use this exactly as directed. Do not skip doses or discontinue unless directed by your doctor.Obtain medical advice before taking any non-prescription drugs as some may affect the action of this medication.Take with food or milk. Start: 05-01-2020 take 1 tablet by haley th every twelve hours predniSONE 20 MG Oral Tablet TAKE 1 TABLET Every twelve hours Quantity: 6 Refills: 0 Sheryl Lin DO Start : 01-May-2020 Active Start: 04-05-2020 End: 06-03-2020 take 1 tablet by mouth once daily at mealtime predniSONE 50 mg oral tablet ; 1 tab(s) orally once a day Quantity: 7 Refills: 0 Ordered: 28-May-2020 Nanette Polk Start: 28-May-2020 End: 03-Jun-2020 Status: Other Generic Substitution Allowed Comments: It is very important that you take or use this exactly as directed. Do not skip doses or discontinue unless directed by your doctor.Obtain medical advice before taking any non-prescription drugs as some may affect the action of this medication.Take with food or milk. Comment on above: It is very important that you take or use this exactly as directed. Do not skip doses or discontinue unless directed by your doctor.Obtain medical advice before taking any non-prescription drugs as some may affect the action of this medication.Take with food or milk. sulfamethoxazole 800 mg / trimethoprim 160 mg oral tablet (2 sources) Dihydrofolate Reductase Inhibitor Antibacterial, Sulfonamide Antimicrobial Start: 022 take 1 tablet by mouth twice daily Sulfamethoxazole-T rimethoprim 800-160 MG Oral Tablet TAKE 1 TABLET TWICE DAILY. Quantity: 6 Refills: 0 Ordered: 25-Jan-2022 Molly Cohen DO Start : 25-Jan-2022 Active tamsulosin hydrochloride 0.4 mg oral capsule (1 source) alpha-Adrenergic Kortney Start: End: 023 take 1 capsule by mouth once daily before mealtime tamsulosin (Flomax) 0.4 mg 24 hr capsule Indications: Right ureteral calculus , Acute flank pain Take 1 capsule (0.4 mg) by mouth once daily in the morning. Take before meals. 30 capsule 0 05/05/2023 05/12/2023 Discontinued (Other) Xolair 150 MG/ML Subcutaneous Solution Prefilled Syringe (2 sources) Start: Xolair 150 MG/ML Subcutaneous Solution Prefilled Syringe 300 mg subcutaneous injection every 4 weeks Quantity: 2 Refills: 11 Sheryl Lin DO Start : 04-Jul-2020 Active Milliliter Problems Active Problems Problem Classification Problem Date Documented Da te Episodic/Chronic Anxiety disorders (20 sources) Anxiety; Translations: [Anxiety state, unspecified] Onset: 3 11-25-2022 Chronic Coagulation and hemorrhagic disorders (12 sources) Petechiae; Translations: [Spontaneous ecchymoses] Episodic Diseases of white blood cells (20 sources) Eosinophil count raised; Translations: [Eosinophilia] Chronic Disorders of teeth and jaw (5 sources) Infection of tooth; Translations: [Acute apical periodontitis of pulpal origin] Onset: 4 08-02-2024 Episodic Headache; including migraine (2 sources) Chronic headache disorder; Translations: [Chronic headaches] Episodic Heart valve disorders (20 sources) Mitral valve regurgitation; Translations: [Mitral valve disorders] Onset: 3 11-27-2022 Chronic Comment on above: 05/30/20: trace regu rgitation, no MVP, EF 55-60%Echo q3-5 years; Immunizations and screening for infectious disease (20 sources) Patient encounter status; Translations: [Special screening examination for other specified viral diseases] Resolved: 0 10-02-2023 Episodic Comment on above: 06/2020: negative; Mood disorders (16 sources) Moderate major depression, single episode; Translations: [Major depressive affective disorder, single episode, moderate] Onset: 3 11-25-2022 Chronic Nausea and vomiting (1 source) Nausea with vomiting, unspecified; Translations: [Nausea with vomiting, unspecified] Onset: 3 Episodic Other aftercare (1 source) Other terminal press operator (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) drug therapy; Translations: [Other half-way (current) drug therapy] Onset: 3 Episodic Other circulatory disease (1 source) Personal history of other diseases of the circulatory system; Translations: [History of irregular heartbeat] Episodic Other connective tissue disease (4 sources) Pain in toe; Translations: [Tinea unguium] 12-17-2022 Episodic Other connective tissue disease (2 sources) Pain in left toe(s); Translations: [Pain in left toe(s)] Onset: 3 Episodic Other connective tissue disease (2 sources) Pain in right toe(s); Translations: [Pain in right toe(s)] Onset: 3 Episodic Other lower respiratory disease (4 sources) Cough; Translations: [Cough] Episodic Other lower respiratory disease (8 sources) Cough; Translations: [Acute cough] Onset: 4 07-06-2024 Episodic Other nervous system disorders (20 sources) Cataplexy and narcolepsy; 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, with cataplexy] Onset: 3 11-27-2022 Chronic Comment on above: Anjelica Omalley ; Other nervous system disorders (1 source) Narcolepsy with cataplexy; 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 with cataplexy] Onset: 4 Chronic Other non-traumatic joint disorders (2 sources) Pain in wrist; Translations: [Wrist pain] Episodic Other nutritional; endocrine; and metabolic disorders (17 sources) Body mass index 30+ - obesity; Translations: [Body Mass Index 31.0-31.9, adult] Chronic Other nutritional; endocrine; and metabolic disorders (17 sources) Obesity; Translations: [Obesity, unspecified] Chronic Other nutritional; endocrine; and metabolic disorders (20 sources) Overweight in adulthood with body mass index of 25 or more but less than 30; Translations: [Overweight] Episodic Other skin disorders (20 sources) Facial swelling ; Translations: [Swelling, mass, or lump in head and neck] Episodic Other skin disorders (2 sources) Brittle hair; Translations: [Abnormalities of the hair] Episodic Other skin disorders (20 sources) Skin lesion; Translations: [Unspecified disorder of skin and subcutaneous tissue] Episodic Other skin disorders (1 source) Ingrowing great toenail; Translations: [Ingrowing nail] Episodic Other skin disorders (1 source) Hyperhidrosis; Translations: [Generalized hyperhidrosis] 12-17-2022 Episodic Other skin disorders (2 sources) Generalized hyperhidrosis; Translations: [Generalized hyperhidrosis] Onset: Episodic Other upper respiratory infections (20 sources) Acute sinusitis; Translations: [Acute sinusitis, unspecified] Episodic Phlebitis; thrombophlebitis and thromboembolism (1 source) Thrombophlebitis of superficial vein of left upper limb; Translations: [Phlebitis and thrombophlebitis of superficial veins of upper extremities] 06-28-2021 Episodic Skin and subcutaneous tissue infections (2 sources) Cellulitis; Translations: [Cellulitis and abscess of unspecified sites] Episodic Unclassified (3 sources) 6 MONTH FUV 03-28-2021 Comment on above: 6 MONTH FUV Unclassified (1 source) 4 MONTH RECHECK 01-23-2021 Comment on above: 4 MONTH RECHECK Unclassified (1 source) SHAVE BIOPSY 05-29-2021 Comment on above: SHAVE BIOPSY Unclassified (2 sources) REACTION 06-28-2021 Comment on above: REACTION Unclassified (1 source) 3 MONTH CHECK 06-27-2021 Comment on above: 3 MONTH CHECK Unclassified (1 source) NPV HEARTBURN 06-27-2021 Comment on above: NPV HEARTBURN Unclassified (1 source) INJECTION 06-22-2021 Comment on above: INJECTION Unclassified (1 source) Superficial thrombophlebitis of left upper extremity 06-28-2021 Unclassified (1 source) 6 MONTH RECHECK 12-25-2021 Comment on above: 6 MONTH RECHECK Unclassified (2 sources) FLANK PAIN, VOMITING 05-01-2023 Comment on above: FLANK PAIN, VOMITING Unclassified (1 source) Kidney stone on right side 05-01-2023 Unclassified (2 sources) Acute cough; Translations: [Acute cough] Onset: Urinary tract infections (3 sources) Urinary tract infectious disease; Translations: [Urinary tract infection, site not specified] Onset: 3 05-01-2023 Episodic Viral infection (1 source) Disease caused by 2019-nCoV; Translations: [COVID-19] 08-02-2024 Episodic Past or Other Problems Problem Classification Problem Date Documented Da te Episodic/Chronic Abdominal pain (13 sources) Abdominal pain; Translations: [Abdominal pain, unspecified site] Onset: 05-01-2023 Resolved: 10-02-2023 05-01-2023 Episodic Allergic reactions (20 sources) Anaphylaxis; Translations: [Urticaria] Onset: 11-25-2022 05-29-2021 Episodic Comment on above: ALLERGIC REACTION Calculus of urinary tract (20 sources) Kidney stone; Translations: [Calculus of kidney] Onset: 05-01-2023 05-01-2023 Episodic Genitourinary symptoms and ill-defined conditions (20 sources) Dysuria; Translations: [Dysuria] Onset: 11-25-2022 Resolved: 11-25-2022 11-25-2022 Episodic Mycoses (20 sources) Candidiasis of vagina; Translations: [Candidiasis of vulva and vagina] Onset: 11-25-2022 Resolved: 11-27-2022 11-27-2022 Episodic Other connective tissue disease (12 sources) Other symptoms and signs involving the musculoskeletal system; Translations: [Other musculoskeletal symptoms referable to limbs] Onset: 11-27-2022 Resolved: 10-02-2023 11-26-2022 Episodic Other diseases of kidney and ureters (20 sources) Cyst of kidney; Translations: [Cystic kidney disease, unspecified] Onset: 11-25-2022 11-27-2022 Episodic Comment on above: 10/2019: 1.6cm L ariadna l cyst06/2020: 2.4cm simple L cortical cyst, repeat in 12mo; 10/2019: 1.6cm L ariadna l cyst06/2020: 2.4cm simple L cortical cyst, repeat in 12mo02/2021: 2.0cm cyst L; Other diseases of kidney and ureters (12 sources) Hydronephrosis; Translations: [Other hydronephrosis] Onset: 05-05-2023 05-13-2023 Episodic Other diseases of kidney and ureters (2 sources) Cyst of kidney; Translations: [Renal cyst] Other gastrointestinal disorders (20 sources) Heartburn; Translations: [Heartburn] Onset: 11-25-2022 11-25-2022 Episodic Other nervous system disorders (12 sources) Paresthesia of left upper limb; Translations: [Paresthesia of skin] Onset: 11-27-2022 Resolved: 10-02-2023 11-26-2022 Episodic Other non-traumatic joint disorders (20 sources) Multiple joint pain; Translations: [Pain in joint, multiple sites] Onset: 11-25-2022 11-25-2022 Episodic Other screening for suspected conditions (not mental disorders or infectious disease) (13 sources) Cancer cervix screening status; Translations: [Screening for malignant neoplasms of cervix] Onset: 10-02-2023 Episodic Comment on above: [facility] Anjelica; Other skin disorders (17 sources) Milia; Translations: [Sebaceous cyst] Onset: 11-25-2022 Resolved: 11-27-2022 11-27-2022 Episodic Residual codes; unclassified (20 sources) Past history of procedure; Translations: [Other specified personal history presenting hazards to health] Resolved: 05-30-2020 Episodic Comment on above: 05/30/2020: EF 55-60 %, trace mitral valve regurgitation; Unclassified (4 sources) Patient encounter status; Translations: [History of Encounter for hepatitis C screening test for low risk patient] Unclassified (9 sources) Onset: 05-21-2023 05-21-2023 Unclassified (6 sources) Acute cough; Translations: [Acute cough] Onset: 07-06-2024 07-06-2024 NEGATED: Highlighted row has not occurred!Residual codes; unclassified (17 sources) Disease Episodic Results Test Name Value Interpretation Reference Range Facility POCT SARS-COV-2/FLU/RSV PCR SYMPTOMATIC manually resultedon 08-02-2024 FLUAV RNA ÁLVARO+probe Ql (Resp) Not detected Not Detected [facility] Work Phone: FLUBV RNA ÁLVARO+probe Ql (Resp) Not detected Not Detected [facility] Work Phone: Interpretation and review of laboratory results Abnormal [facility] Work Phone: RSV RNA ÁLVARO+probe Ql (Resp) Not detected Not Detected [facility] Work Phone: SARS-CoV-2 (COVID-19) RNA ÁLVARO+probe Ql (Resp) Detected Abnormal Not Detected [facility] Work Phone: [facility] Work Phone: XR CHEST 2 VIEWSon 4 XR CHEST 2 VIEWS Interpreted By: Enrrique Link, STUDY: XR CHEST 2 VIEWS; 08/02/2024 1:37 pm INDICATION: Signs/Symptoms:cough. ,R05.1 Acute cough COMPARISON: 07/06/2024 ACCESSION NUMBER(S): [id number] ORDERING CLINICIAN: CAROLYN SAAVEDRA FINDINGS: The cardiomediastinal silhouette and pulmonary vasculature are within normal limits. No consolidation, pleural effusion or pneumothorax. IMPRESSION: No acute cardiopulmonary process. MACRO: None. Signed by: Enrrique Link 08/02/2024 2:16 PM Dictation workstation: [id number] [facility] XR Chest 2 Viewson 4 No acute cardiopulmo nary process. MACRO: None. Signed by: Enrrique Link 08/02/2024 2:16 PM Dictation workstation: [id number] [facility] Interpreted By: Enrrique Link, STUDY: XR CHEST 2 VIEWS; 08/02/2024 1:37 pm INDICATION: Signs/Symptoms:cough. ,R05.1 Acute cough COMPARISON: 07/06/2024 ACCESSION NUMBER(S): [id number] ORDERING CLINICIAN: CAROLYN SAAVEDRA FINDINGS: The cardiomediastinal silhouette and pulmonary vasculature are within normal limits. No consolidation, pleural effusion or pneumothorax. [facility] Enrrique Link MD - 08/02/2024 Interpreted By: Enrrique Link, STUDY: XR CHEST 2 VIEWS; 08/02/2024 1:37 pm INDICATION: Signs/Symptoms:cough. ,R05.1 Acute cough COMPARISON: 07/06/2024 ACCESSION NUMBER(S): [id number] ORDERING CLINICIAN: CAROLYN SAAVEDRA FINDINGS: The cardiomediastinal silhouette and pulmonary vasculature are within normal limits. No consolidation, pleural effusion or pneumothorax. IMPRESSION: No acute cardiopulmonary process. MACRO: None. Signed by: Enrrique Link 08/02/2024 2:16 PM Dictation workstation: [id number] [facility] Work Phone: Radiology Study observation (narrative) [facility] Work Phone: XR Chest 2 ViewsOrdered By: Enrrique Link on 08-02-2024 [facility] Work Phone: XR CHEST 2 VIEWSon 4 XR CHEST 2 VIEWS Interpreted By: Kenneth Smith, STUDY: XR CHEST 2 VIEWS; 07/06/2024 1:17 pm INDICATION: Signs/Symptoms:cough. ,R05.1 Acute cough COMPARISON: 06/05/2020 ACCESSION NUMBER(S): [id number] ORDERING CLINICIAN: MOLLY COHEN FINDINGS: CHEST PA, LATERAL CARDIOMEDIASTINAL SILHOUETTE: Cardiomediastinal silhouette is normal in size and configuration. LUNGS: Lungs are clear. ABDOMEN: No remarkable upper abdominal findings. BONES: No acute osseous changes. IMPRESSION: 1. No evidence of acute cardiopulmonary process. No change from 06/05/2020. MACRO: None Signed by: Kenneth Chaney 07/06/2024 1:44 PM Dictation workstation: [id number] [facility] XR Chest 2 Viewson 4 1. No evidence of ac angel cardiopulmonary process. No change from 06/05/2020. MACRO: None Signed by: Kenneth Chaney 07/06/2024 1:44 PM Dictation workstation: [id number] [facility] Interpreted By: Kenneth Smith, STUDY: XR CHEST 2 VIEWS; 07/06/2024 1:17 pm INDICATION: Signs/Symptoms:cough. ,R05.1 Acute cough COMPARISON: 06/05/2020 ACCESSION NUMBER(S): [id number] ORDERING CLINICIAN: MOLLY COHEN FINDINGS: CHEST PA, LATERAL CARDIOMEDIASTINAL SILHOUETTE: Cardiomediastinal silhouette is normal in size and configuration. LUNGS: Lungs are clear. ABDOMEN: No remarkable upper abdominal findings. BONES: No acute osseous changes. [facility] Kenneth Chaney MD - 07/06/2024 Interpreted By: Kenneth Chaney, STUDY: XR CHEST 2 VIEWS; 07/06/2024 1:17 pm INDICATION: Signs/Symptoms:cough. ,R05.1 Acute cough COMPARISON: 06/05/2020 ACCESSION NUMBER(S): [id number] ORDERING CLINICIAN: MOLLY COHEN FINDINGS: CHEST PA, LATERAL CARDIOMEDIASTINAL SILHOUETTE: Cardiomediastinal silhouette is normal in size and configuration. LUNGS: Lungs are clear. ABDOMEN: No remarkable upper abdominal findings. BONES: No acute osseous changes. IMPRESSION: 1. No evidence of acute cardiopulmonary process. No change from 06/05/2020. MACRO: None Signed by: Kenneth Chaney 07/06/2024 1:44 PM Dictation workstation: [id number] [facility] Work Phone: Radiology Study observation (narrative) [facility] Work Phone: XR Chest 2 ViewsOrdered By: Kenneth Cahney on 07-06-2024 [facility] Work Phone: Urine Drug Screen ([facility])on 02-11-2024 AMPHETAMINES Negative Normal <1000 ng/mL [facility] Comment on above: Order Comment: FOR M SLT UNK Performed By: #### L [id number] #### [facility] [address] [place], [address] BARBITIURATES Negative Normal < 200 ng/mL [facility] Comment on above: Order Comment: FOR M SLT UNK Performed By: #### L [id number] #### [facility] [address] [place] [address] BENZODIAZIPINE Negative Normal < 200 ng/mL [facility] Comment on above: Order Comment: FOR M SLT UNK Performed By: #### L [id number] #### [facility] [address] [place] [address] COCAINE Negative Normal < 300 ng/mL [facility] Comment on above: Order Comment: FOR M SLT UNK Performed By: #### L [id number] #### [facility] [address] [place] [address] ECSTACY Negative Normal < 500 ng/mL [facility] Comment on above: Order Comment: FOR M SLT UNK Performed By: #### L [id number] #### [facility] [address] [place] [address] METHADONE Negative Normal < 300 ng/mL [facility] Comment on above: Order Comment: FOR M SLT UNK Performed By: #### L [id number] #### [facility] [address] [place] [address] OPIATES Negative Normal < 300 ng/mL [facility] Comment on above: Order Comment: FOR M SLT UNK Performed By: #### L [id number] #### [facility] [address] [place] [address] PCP Negative Normal < 25 ng/mL [facility] Comment on above: Order Comment: FOR M SLT UNK Performed By: #### L [id number] #### [facility] [address] [place] [address] THC Negative Normal < 50 ng/mL [facility] Comment on above: Order Comment: FOR M SLT UNK Performed By: #### L [id number] #### [facility] [address] [facility] [id number] VISTA UDS PH 6 Normal [facility] Comment on above: Order Comment: FOR [facility] SLT UNK Performed By: #### L [id number] #### [facility] [address] [place], [place], [address] DBT Breast - bilateralon No mammographic evid ence of malignancy. BI-RADS CATEGORY: BI-RADS Category: 1 Negative. Recommendation: Routine Screening Mammogram in 1 Year. Recommended Date: 1 Year. Laterality: Bilateral. MACRO: None Signed by: Delroy Buckley 10/15/2023 8:40 AM Dictation workstation: [id number] Interpreted By: Delroy Yuan, STUDY: BI MAMMO BILATERAL SCREENING TOMOSYNTHESIS; 10/14/2023 1:29 pm ACCESSION NUMBER(S): [id number] ORDERING CLINICIAN: MOLLY COHEN INDICATION: Screening. COMPARISON: None. FINDINGS: CC and MLO 2D digital mammograms and digital breast tomosynthesis images were obtained of the bilateral breasts. 3-D volume images were reconstructed in 4 views at an independent workstation as 1 mm slices through the breasts in both the CC and MLO projections. Density: The breast tissue is heterogeneously dense, which may obscure small masses. No discrete mass or focal asymmetry is identified. No suspicious microcalcifications or foci of architectural distortion are seen. This study was interpreted with CAD. MMODAL Delroy Buckley MD - 10/15/2023 Interpreted By: Delroy Buckley, STUDY: BI MAMMO BILATERAL SCREENING TOMOSYNTHESIS; 10/14/2023 1:29 pm ACCESSION NUMBER(S): [id number] ORDERING CLINICIAN: MOLLY COHEN INDICATION: Screening. COMPARISON: None. FINDINGS: CC and MLO 2D digital mammograms and digital breast tomosynthesis images were obtained of the bilateral breasts. 3-D volume images were reconstructed in 4 views at an independent workstation as 1 mm slices through the breasts in both the CC and MLO projections. Density: The breast tissue is heterogeneously dense, which may obscure small masses. No discrete mass or focal asymmetry is identified. No suspicious microcalcifications or foci of architectural distortion are seen. This study was interpreted with CAD. IMPRESSION: No mammographic evidence of malignancy. BI-RADS CATEGORY: BI-RADS Category: 1 Negative. Recommendation: Routine Screening Mammogram in 1 Year. Recommended Date: 1 Year. Laterality: Bilateral. MACRO: None Signed by: Delroy Buckley 10/15/2023 8:40 AM Dictation workstation: [id number] [facility] Work Phone: DBT Breast - bilateralOrdere d By: Delroy Buckley on 10-15-2023 [facility] Work Phone: BI MAMMO BILATERAL SCREENING TOMOSYNTHESISon 10-14-2023 BI MAMMO BILATERAL SCREENING TOMOSYNTHESIS Interpreted By: Delroy Buckley, STUDY: BI MAMMO BILATERAL SCREENING TOMOSYNTHESIS; 10/14/2023 1:29 pm ACCESSION NUMBER(S): [id number] ORDERING CLINICIAN: MOLLY COHEN INDICATION: Screening. COMPARISON: None. FINDINGS: CC and MLO 2D digital mammograms and digital breast tomosynthesis images were obtained of the bilateral breasts. 3-D volume images were reconstructed in 4 views at an independent workstation as 1 mm slices through the breasts in both the CC and MLO projections. Density: The breast tissue is heterogeneously dense, which may obscure small masses. No discrete mass or focal asymmetry is identified. No suspicious microcalcifications or foci of architectural distortion are seen. This study was interpreted with CAD. IMPRESSION: No mammographic evidence of malignancy. BI-RADS CATEGORY: BI-RADS Category: 1 Negative. Recommendation: Routine Screening Mammogram in 1 Year. Recommended Date: 1 Year. Laterality: Bilateral. MACRO: None Signed by: Delroy Buckley 10/15/2023 8:40 AM Dictation workstation: [id number] [facility] DBT Breast - bilateralon Radiology Study observation (narrative) [facility] Work Phone: Laboratory - Drug toxicology Ordered By: Jose Armando Courtney on 07-18-2023 Amphetamines Ql (U) Negative <1000 ng/mL [facility] Benzodiazepines Ql (U) Negative < 200 ng/mL [facility] Cannabinoids Screen Ql (U) Negative < 50 ng/mL [facility] Cocaine Ql (U) Negative < 300 ng/mL [facility] Opiates Ql (U) Negative < 300 ng/mL [facility] No Panel InformationOrdered By: Jose Armando Courtney on 07-18-2023 MDMA (Ecstasy) Screen Negative < 500 ng/mL [facility] Urine Barbiturates Screen Negative < 200 ng/mL [facility] Urine Drug Screen Comment [facility] Comment on above: CONFIRMATORY TESTING FOR ALL POSITIVE URINE DRUG SCREENRESULTS WILL ONLY BE SENT OUT UPON PHYSICIAN ORDER. VISTA Urine Drug Screen methods provide only preliminaryanalytical test results. A more specific alternate chemicalmethod must be used in order to obtain a confirmedanalytical result. Gas chromatography/mass spectrometery(GC/MS) is the preferred confirmatory method. Clinicalconsideration and professional judgement should be appliedto any drug of abuse test result, particularly whenpreliminary positive results are used. URINE TCA TESTING MUST BE ORDERED SEPARATELY. USE TESTMNEMONIC: [facility] Urine Methadone Screen Negative < 300 ng/mL [facility] Urine Drug Screen (VISTA)on 07-18-2023 AMPHETAMINES Negative Normal <1000 ng/mL [facility] Comment on above: Order Comment: FOR A DDERALL Performed By: #### L 505.5000 #### [facility] [address] [place], [place], [id number] BARBITIURATES Negative Normal < 200 ng/mL [facility] Comment on above: Order Comment: FOR A DDERALL Performed By: #### L 505.5000 #### [facility] [address] [place], [place], [id number] BENZODIAZIPINE Negative Normal < 200 ng/mL [facility] Comment on above: Order Comment: FOR A DDERALL Performed By: #### L 505.5000 #### [facility] [address] [place], [address] COCAINE Negative Normal < 300 ng/mL [facility] Comment on above: Order Comment: FOR A DDERALL Performed By: #### L 505.5000 #### [facility] [address] [facility] [address] ECSTACY Negative Normal < 500 ng/mL [facility] Comment on above: Order Comment: FOR A DDERALL Performed By: #### L 505.5000 #### [facility] [address] [place] [address] METHADONE Negative Normal < 300 ng/mL [facility] Comment on above: Order Comment: FOR A DDERALL Performed By: #### L 505.5000 #### [facility] [address] [place] [address] OPIATES Negative Normal < 300 ng/mL [facility] Comment on above: Order Comment: FOR A DDERALL Performed By: #### L 505.5000 #### [facility] [address] [place] [address] PCP Negative Normal < 25 ng/mL [facility] Comment on above: Order Comment: FOR A DDERALL Performed By: #### L 505.5000 #### [facility] [address] [place] [address] THC Negative Normal < 50 ng/mL [facility] Comment on above: Order Comment: FOR A DDERALL Performed By: #### L 505.5000 #### [facility] [address] [place] [address] VISTA UDS PH 6 Normal [facility] Comment on above: Order Comment: FOR A DDERALL Performed By: #### L 505.5000 #### [facility] [address] [place] [id number] Urine phencyclidine (PCP) de tectionOrdered By: Jose Armando Courtney on 07-18-2023 Phencyclidine Ql (U) Negative < 25 ng/mL [facility] HCG ( test) IA.rapi d Ql (U)Ordered By: Angella Andrade on 06-10-2023 HCG ( test) Ql (U) Negative NEGATIVE [facility] Interpretation and review of laboratory results Normal [facility] RF Kidney and Ureter and Uri nary bladder Views W contrast retrogradeon 05-13-2023 These images are not reportable by radiology and will not be interpreted by Radiologists. IMAGING CBC AND DIFFERENTIALon 05-01 % AUTOMATED IMMATURE GRAN 0.4 % Normal 0.0 - 0.9 [facility] Comment on above: Result Comment: Meg ture Granulocyte Count (IG) includes promyelocytes, myelocytes and metamyelocytes but does not include bands. Percent differential counts (%) should be interpreted in the context of the absolute cell counts (cells/L). Performed By: #### C BCDF #### [address] [address] Basophils (Bld) [#/Vol] 0.07 10*3/uL Normal 0.00 - 0.10 [facility] Comment on above: Performed By: #### C BCDF #### [address] [address] Basophils/100 WBC (Bld) 0.4 % Normal 0.0 - 2.0 [facility] Comment on above: Performed By: #### C BCDF #### [address] [address] Eosinophils (Bld) [#/Vol] 0.49 10*3/uL Normal 0.00 - 0.70 [facility] Comment on above: Performed By: #### C BCDF #### [address] [address] Eosinophils/100 WBC (Bld) 3.1 % Normal 0.0 - 6.0 [facility] Comment on above: Performed By: #### C BCDF #### [address] [address] Erythrocyte distribution width (RBC) [Ratio] 13.3 % Normal 11.5 - 14.5 [facility] Comment on above: Performed By: #### C BCDF #### [id number] [address] Hematocrit (Bld) [Volume fraction] 45.8 % Normal 36.0 - 46.0 [facility] Comment on above: Performed By: #### C BCDF #### [address] [address] Hemoglobin (Bld) [Mass/Vol] 15.0 g/dL Normal 12.0 - 16.0 [facility] Comment on above: Performed By: #### C BCDF #### [address] [address] Lymphocytes (Bld) [#/Vol] 2.47 10*3/uL Normal 1.20 - 4.80 [facility] Comment on above: Performed By: #### C BCDF #### [address] [address] Lymphocytes/100 WBC (Bld) 15.8 % Normal 13.0 - 44.0 [facility] Comment on above: Performed By: #### C BCDF #### [address] [address] MCHC (RBC) [Mass/Vol] 32.8 g/dL Normal 32.0 - 36.0 [facility] Comment on above: Performed By: #### C BCDF #### [address] [address] MCV (RBC) [Entitic vol] 89 fL Normal 80 - 100 [facility] Comment on above: Performed By: #### C BCDF #### [address] [address] Monocytes (Bld) [#/Vol] 0.81 10*3/uL Normal 0.10 - 1.00 [facility] Comment on above: Performed By: #### C BCDF #### [address] [address] Monocytes/100 WBC (Bld) 5.2 % Normal 2.0 - 10.0 [facility] Comment on above: Performed By: #### C BCDF #### [address] [address] Neutrophils (Bld) [#/Vol] 11.73 10*3/uL High 1.20 - 7.70 [facility] Comment on above: Result Comment: Perc ent differential counts (%) should be interpreted in the context of the absolute cell counts (cells/L). Performed By: #### C BCDF #### [address] [address] Neutrophils/100 WBC (Bld) 75.1 % Normal 40.0 - 80.0 [facility] Comment on above: Performed By: #### C BCDF #### [address] [address] Platelets (Bld) [#/Vol] 321 10*3/uL Normal 150 - 450 [facility] Comment on above: Performed By: #### C BCDF #### [address] [address] RBC 5.17 x10E12/L Normal 4.00 - 5.20 [facility] Comment on above: Performed By: #### C BCDF #### [address] [address] WBC (Bld) [#/Vol] 15.6 10*3/uL High 4.4 - 11.3 [facility] Comment on above: Performed By: #### C BCDF #### [address] [address] COMPREHENSIVE PANELon 2022 Albumin [Mass/Vol] 4.4 g/dL Normal 3.4 - 5.0 [facility] Comment on above: Performed By: #### C MP #### [address] [address] ALP [Catalytic activity/Vol] 56 U/L Normal 33 - 110 [facility] Comment on above: Performed By: #### C MP #### [address] [address] ALT [Catalytic activity/Vol] 17 U/L Normal 7 - 45 [facility] Comment on above: Result Comment: Jemima ents treated with Sulfasalazine may generate falsely decreased results for ALT. Performed By: #### C MP #### [address] [address] Anion gap [Moles/Vol] 10 mmol/L Normal 10 - 20 [facility] Comment on above: Performed By: #### C MP #### [address] [address] AST [Catalytic activity/Vol] 12 U/L Normal 9 - 39 [facility] Comment on above: Performed By: #### C MP #### [address] [address] Bilirubin [Mass/Vol] 0.6 mg/dL Normal 0.0 - 1.2 [facility] Comment on above: Performed By: #### C MP #### [address] [address] Calcium [Mass/Vol] 9.2 mg/dL Normal 8.6 - 10.3 [facility] Comment on above: Performed By: #### C MP #### [address] [address] Chloride [Moles/Vol] 106 mmol/L Normal 98 - 107 [facility] Comment on above: Performed By: #### C MP #### [address] [address] Creatinine [Mass/Vol] 0.78 mg/dL Normal 0.50 - 1.05 [facility] Comment on above: Performed By: #### C MP #### [address] [address] eGFR FEMALE >90 Normal >90 [facility] Comment on above: Result Comment: CALC ULATIONS OF ESTIMATED GFR ARE PERFORMED USING THE 2020 CKD-EPI STUDY REFIT EQUATION WITHOUT THE RACE VARIABLE FOR THE IDMS-TRACEABLE CREATININE METHODS. https://jasn.asnjournals.org/content/early/ASN.124769 5603 Performed By: #### C MP #### [address] [address] Glucose [Mass/Vol] 108 mg/dL High 74 - 99 [facility] Comment on above: Performed By: #### C MP #### [address] [address] HCO3 (Bld) [Moles/Vol] 25 mmol/L Normal 21 - 32 [facility] Comment on above: Performed By: #### C MP #### [address] [address] Potassium [Moles/Vol] 4.1 mmol/L Normal 3.5 - 5.3 [facility] Comment on above: Performed By: #### C MP #### [address] [address] Protein [Mass/Vol] 7.0 g/dL Normal 6.4 - 8.2 [facility] Comment on above: Performed By: #### C MP #### [address] [address] Sodium [Moles/Vol] 137 mmol/L Normal 136 - 145 [facility] Comment on above: Performed By: #### C MP #### [address] [address] Urea nitrogen [Mass/Vol] 15 mg/dL Normal 6 - 23 [facility] Comment on above: Performed By: #### C MP #### [address] [address] [address] ABDOMEN AND PELVIS W IV C [facility] 05-01-2023 CT ABDOMEN AND PELVIS W IV CONTRAST STUDY: CT Abdomen and Pelvis with IV Contrast; 05/01/2023 7:38 AM INDICATION: Right flank pain since 0430 hours. Additional History: Renal stones. Tubal ligation. . COMPARISON: US renal 02/01/21, 06/20/[address] AP 10/04/19. ACCESSION NUMBER(S): [id number] ORDERING CLINICIAN: RAFI GROVES DO TECHNIQUE: CT of the abdomen and pelvis was performed. Contiguous axial images were obtained at 3 mm slice thickness through the abdomen and pelvis. Coronal and sagittal reconstructions at 3 mm slice thickness were performed. Omnipaque 350 90 mL was administered intravenously. FINDINGS: LOWER CHEST: No cardiomegaly. No pericardial effusion. Lung bases are clear. ABDOMEN: LIVER: No hepatomegaly. Smooth surface contour. Normal attenuation. BILE DUCTS: No intrahepatic or extrahepatic biliary ductal dilatation. GALLBLADDER: The gallbladder is unremarkable. STOMACH: No abnormalities identified. PANCREAS: No masses or ductal dilatation. SPLEEN: No splenomegaly or focal splenic lesion. ADRENAL GLANDS: No thickening or nodules. KIDNEYS AND URETERS: Kidneys are normal in location. There is multifocal scarring and atrophy of the left kidney. There is right hydroureteronephrosis secondary to a 6 mm calculus at the right ureterovesical junction. Other nonobstructive renal calculi are seen bilaterally. The largest nonobstructive calculus within the right kidney is seen within the midpole measuring 5 mm. The largest nonobstructive left renal calculus measures 6 mm within the upper pole. No left-sided hydronephrosis. PELVIS: BLADDER: Mild urinary bladder wall thickening although the bladder is incompletely distended REPRODUCTIVE ORGANS: 2.1 cm dominant right ovarian follicle. Bilateral tubal ligation clips. BOWEL: Nonobstructive bowel gas pattern. Normal appendix. VESSELS: No abnormalities identified. Abdominal aorta is normal in caliber. PERITONEUM/RETROPERITONEU M/LYMPH NODES: Small amount of simple appearing free pelvic fluid. No pneumoperitoneum. No lymphadenopathy. ABDOMINAL WALL: No abnormalities identified. SOFT TISSUES: No abnormalities identified. BONES: No acute fracture or aggressive osseous lesion. IMPRESSION: Right hydroureteronephrosis secondary to a 6 mm calculus at the right ureterovesical junction. Other nonobstructive renal calculi are seen bilaterally. No left-sided hydronephrosis. Multifocal scarring and atrophy of the left kidney. Mild urinary bladder wall thickening although the bladder is incompletely distended. Recommend correlation with urinalysis. 2.1 cm dominant right ovarian follicle. Small amount of simple appearing free pelvic fluid. Signed by Elsy Rodriguez MD Electronically signed by: ELSY RODRIGUEZ MD [facility] Provider Note - ED Care Ferris althea 05-01-2023 Provider Note - ED Care Transition ED Care Transition: Chart Review: ED NOTES ED NOTES: Patient care was taken over by myself at 7 AM. Patient had presented to the ED with complaints of abdominal pain she does have a history of kidney stones previously. Patient is noted to have a leukocytosis and a CT scan of the abdomen pelvis were ordered when I arrived to the ED. Disposition the patient will be dependent upon the CT scan results. The CT scan of the abdomen pelvis with IV contrast revealed evidence of right hydro ureter nephrosis secondary to a 6 mm calculus at the right UVJ. There is nonobstructive renal calculi seen bilaterally with no evidence of left-sided hydronephrosis. There is evidence of scarring and atrophy of the left kidney. Mild urinary bladder wall thickening throughout the bladder is incompletely distended recommend correlation for urinalysis there is also a 2.1 cm dominant right ovarian follicle with small amount of simple appearing free pelvic fluid. Due to the urinalysis having +2 bacteria with trace leukocyte Estrace with only 9 white blood cells and 8 epithelial cells I cautiously treated the patient with IV antibiotics prior to discharging the patient home. I did have a detailed discussion with the patient concerning her lab and CT scan results prior to discharging the patient home most likely the patient will pass the stone because it is at the UVJ will have no difficulties. The patient was referred to follow-up with Dr. Kelley of she continues have symptoms. She was also provided prescription for pain medication and Keflex for her abnormal urine. She was encouraged to return to the ED if she developed any new or worsening symptoms. CLINICAL IMPRESSION Diagnosis/Annotation: ED Dx Name:Abdominal pain Code:R10.9 Name:UTI (urinary tract infection) Code:N39.0 Name:Kidney stone on right side Code:N20.0 Disposition: discharged Type: home ATTESTATION CRITICAL CARE TIME Is this a critically ill patient: no Electronic Signatures: Harris Mcdaniels () (Signed 02-May-2023 13:43) Authored: ED Notes, Clinical Impression, Attestation, Chart Review, Scores Last Updated: 02-May-2023 13:43 by Harris Mcdaniels () [facility] Provider Note - ED v3on - Provider Note - ED v3 Provider Note: Results/Vital Signs: Pediatric Clinical Scoring (SCOTTY) is no recent SCOTTY charted on this account Chart Review: ED NOTES ED NOTES: 37-year-old female presents with chief complaint of right flank pain. Patient states around 4 AM she developed acute right flank pain with associated nausea and vomiting. Patient states symptoms are similar to when she had nephrolithiasis approximately 10 years ago. Patient denies any hematuria dysuria of presenting complaint. Patient did have an IV established was receiving fluids along with 15 mg of IV Toradol. Patient denies any chest pain or shortness of breath with presenting complaint. The patient will be transitioned to oncoming provider. HISTORY OF PRESENTING ILLNESS ZULY is a 37 year old Female and was seen by me at 01-May-2023 06:19 for a chief complaint of flank pain (pt c/o right sided flank pain since 0430 this morning, states she has a hx of kidney stones)(1). The historian is the patient. Triage Information: Most recent Vital Sign Value Date Temp (F): 98.5 05-01-2023 06:08 Temp (C): 36.9 05-01-2023 06:08 Heart Rate (beats/min): 75 05-01-2023 06:08 Respirations (breaths/min): 16 05-01-2023 06:08 SpO2 (%): 98 05-01-2023 06:08 BP Systolic (mm Hg): 116 05-01-2023 06:08 BP Diastolic (mm Hg): 97 05-01-2023 06:08 PAST MEDICAL HISTORY ALLERGIES/INTOLERANCES: No Known Allergies HEALTH HISTORY: No documented data. OUTPATIENT MEDICATIONS: Home Medications Review Status for Reconciliation: N/A Med Status: Patient Currently Takes Medications Drug Name: Adderall 20 mg oral tablet Instructions: 1 tab(s) orally 2 times a day Drug Name: Allergy Relief (Diphenhydramine HCl) 25 mg oral capsule Instructions: 1 cap(s) orally every 4 hours, As Needed Drug Name: predniSONE 10 mg oral tablet Instructions: 1 tab(s) orally once a day as directed Drug Name: EpiPen 2-Igor 0.3 mg injectable kit Instructions: 0.3 milligram(s) intramuscularly once, As Needed -for allergy symptoms /anaphylaxis Drug Name: Pepcid 20 mg oral tablet Instructions: 1 tab(s) orally once a day Drug Name: ZyrTEC 10 mg oral tablet Instructions: 1 tab(s) orally once a day Drug Name: Multiple Vitamins oral tablet Instructions: 1 tab(s) orally once a day Drug Name: EpiPen 2-Igor 0.3 mg injectable kit Instructions: 0.3 milligram(s) intramuscularly prn Drug Name: Pepcid 40 mg oral tablet Instructions: 1 tab(s) orally once a day Drug Name: EPINEPHrine 0.3 mg injectable kit Instructions: 0.3 milligram(s) intramuscularly once Drug Name: predniSONE 10 mg oral tablet Instructions: 1 tab(s) orally once a day -Take 40 mg daily for 3 days, then take 30 mg daily for 3 days, then take 20 mg daily for 3 days, then take 10 mg daily for 3 days. Drug Name: predniSONE 10 mg oral tablet Instructions: 5 tab(s) orally once a day SIGNIFICANT EVENTS: Past Medical History Description:kidney stones Description:narcoplexy with catoplexy Description:cardiac cath Description:bradycardia Description:tachycardia Past Surgical History Description:tubal ligation Description:D & C x10 Description:Lithotripsy Description: REVIEW OF SYSTEMS GASTROINTESTINAL: POSITIVE for: abdominal pain, nausea and vomiting; All other systems reviewed and are negative PHYSICAL EXAM CONSTITUTIONAL: Well appearing, well nourished, awake, alert, oriented to person, place, time/situation and in no apparent distress. HENMT: Airway patent, ears with clear tympanic membranes bilaterally. Nasal mucosa clear. Mouth with normal mucosa. Throat has no vesicles, no oropharyngeal exudates and uvula is midline. Face with no lymph node enlargement. EYES: Clear bilaterally, pupils equal, round and reactive to light. CARDIOVASCULAR: Normal rate, regular rhythm. Heart sounds S1, S2. No murmurs, rubs or gallops. PMI non-displaced. RESPIRATORY: Breath sounds clear and equal bilaterally. GASTROINTESTINAL: Abdomen soft, non-distended, no rebound, no guarding. Bowel sounds normal in all 4 quadrants. Right flank pain to percussion with mild inguinal radiation. GENITOURINARY: No discharge, no lesions. MUSCULOSKELETAL: Spine appears normal, range of motion is not limited, no muscle or joint tenderness. NEUROLOGICAL: Alert and oriented, no focal deficits, no motor or sensory deficits. SKIN: Skin normal color for race, warm, dry and intact. No evidence of trauma. PSYCHIATRIC: Alert and oriented to person, place, time/situation. normal mood and affect. No apparent risk to self or others. HEME/LYMPH: No adenopathy or splenomegaly. No cervical, supraclavicular or inguinal lymphadenopathy. CRITICAL CARE RESULTS: Recent Lab Results: I have reviewed these laboratory results: Complete Blood Count + Differential 01-May-2023 06:23:00 ResultValue White Blood Cell Count 15.6 H Red Blood Cell Count 5.17 (more content not included)... Normal [facility] Risk Screen - Adult Emergenc yon 05-01-2023 Risk Screen - Adult Emergency Preferred Language: Preferred Language: Preferred Language for Discussing Health Care (patient/designee)Tajik Patient Preferred Pharmacy: Patient Preferred Pharmacy Statement: I have reviewed and updated the patient's preferred pharmacy selection for today's visit. Advanced Directives: Advance Directive/DNRno Family Violence Adult: Abuse Screen: Are you or have you been threatened or abused physically, emotionally, or sexually by anyoneno Learning Assessment (Patient): Learning Assessment (Patient): Patient is Able to be Assessed for Learningyes Factors Influencing Readiness to Learnpain Factors that Impact Ability to Learnnone Devices/Methods Used to Communicatenone Learning Preferencesaudio Cultural Considerationsnone Developmental Considerationsnone Religion Considerationsnone Learning Assessment (Other Learner): Learning Assessment (Other Learner): Other learner availableno Pressure Injury/TB/Substance: Pressure Injury: Pressure Injury Present on Admissionno Do you have a coughno Smoking Statuslight user (uses <10 cig/day, OR <0.5 ppd, OR 1 can/pouch loose leaf tobacco per week, OR <0.5 vape pods per day) Tobacco Cessation Education (provide if tobacco use within the last 12 mos)not applicable Alcohol Usedenies Drug Usedenies Drug 2 Usedenies Admission Risk Screen: Significant IndicatorsComplete CAGE: CAGE: Is this an injured patient at a Trauma Center ([facility]/[place]/ [place]): no Electronic Signatures: Ines Martinez (STUART) (Signed 01-May-2023 06:10) Authored: Preferred Language, Patient Preferred Pharmacy, Advanced Directives, Family Violence Adult, Learning Assessment (Patient), Learning Assessment (Other Learner), Pressure Injury/TB/Substance, Pressure Injury, CAGE Last Updated: 01-May-2023 06:10 by Ines Martinez (STUART) [facility] Triage - EDon 05-01-2023 Triage - ED Quick Triage: Are You no Have You Given In The Last 6 Weeksno Are You Currently Breastfeedingno Chart Review: ARRIVAL INFORMATION Mode of Arrival: private vehicle CHIEF COMPLAINT ZULY CLINE is a Female patient with a chief complaint of flank pain (pt c/o right sided flank pain since 0430 this morning, states she has a hx of kidney stones). Triage Date/Time: 01-May-2023 06:08 JACK: 3 Pain Rating (0-10): 8 = Severe Pain location: right flank Vital Signs: Temperature: 98.5F ( 36.9C) taken temporal Blood Pressure: 116/97 Mean: Heart Rate: 75 Respiratory Rate: 16 Pulse Oximetry: 98% on room air, no respiratory support. Height: 5 feet 5.00 inches. 165.1 CM Weight: 143.3 pounds. Calculated 65.0 kg. (stated) Calculated BMI (kg/m2): 23.846 Calculated BSA (m2) 1.73 Yuli Coma Scale: Best Eye Response: (E4) spontaneous Best Motor Response: (M6) obeys commands Best Verbal Response: (V5) oriented Yuli Score: 15 Cough lasting greater than 3 weeks: no Allergies: no Last menstrual period: unknown Patient has homicidal thoughts: no Risk Screens Suicide Risk Screen In the Past Month: Have you wished you were or wished you could go to sleep and not wake up no In the Past Month: Have you had any actual thoughts of killing yourself no In Your Lifetime: Have you ever done anything, started to do anything, or prepared to do anything to end your life no Estrada Fall Scale Screening Has the patient fallen before (or is the patient in the ED as a result of a fall) has not had a fall Does the patient have an impaired gait does not have impaired gait Is the patient cognitively impaired not cognitively impaired Interventions: Estrada Fall Interventions: LOW INTERVENTIONS: *patient oriented to surroundings and call system, * patient/family falls education completed and documented, *patients fall status communicated during bedside handoff, *whiteboard updated, *mode of toileting discussed with patient, *bed in low position with brakes locked, *call light in reach, * non-skid footwear TRAVEL HISTORY Travel History Coronavirus Screening: no exposure or symptoms Travel Exposure History: NO travel to International locations in the past 30 days PAIN Pain Scale Used: IVY Pain Rating (0-10): 8 = Severe Past Medical History: Past Medical History Reviewedyes Electronic Signatures: Ines Martinez) (Signed 01-May-2023 06:09) Entered: Risk Screens, Pain, Travel History, Chart Review, Scores, Past Medical History Authored: Quick Triage, Risk Screens, Pain, Travel History, Chart Review, Scores, Past Medical History Last Updated: 01-May-2023 06:09 by Ines Martinez (RN) Normal [facility] Health UA MICROSCOPICon 05-01-2023 AMORPHOUS CRYSTAL 1+ /HPF Normal [facility] Comment on above: Performed By: #### U AMIC #### [place] [address] BACTERIA 2+ /HPF Abnormal [facility] Comment on above: Performed By: #### U AMIC #### [place] [address] BUDDING YEAST PRESENT Abnormal [facility] Comment on above: Performed By: #### U AMIC #### [place] [address] Mucus Ql (Urine sed) 1+ /LPF Normal [facility] Comment on above: Performed By: #### U AMIC #### [place] [address] RBC 120 /HPF Abnormal 0-5 [facility] Comment on above: Performed By: #### U AMIC #### [place] [address] SQUAMOUS EPITH. CELLS 8 /HPF Normal [facility] Comment on above: Performed By: #### U AMIC #### [place] [address] WBC 9 /HPF Abnormal 0-5 [facility] Comment on above: Performed By: #### U AMIC #### [place] [address] WBC CLUMPS OCC Normal [facility] Comment on above: Performed By: #### U AMIC #### [place] [address] URINALYSIS WITH CULTURE IF I NDICATEDon 05-01-2023 Appearance (U) HAZY Normal CLEAR [facility] Comment on above: Performed By: #### U ARFX #### [place] [address] Bilirubin Ql (U) Negative Normal NEGATIVE [facility] Comment on above: Performed By: #### U ARFX #### [place] [address] Color (U) Yellow Normal STRAW,YELLO W [facility] Comment on above: Performed By: #### U ARFX #### [place] [address] Glucose Ql (U) Negative Normal NEGATIVE [facility] Comment on above: Performed By: #### U ARFX #### [place] [address] Hemoglobin Ql (U) LARGE (3+) Abnormal NEGATIVE [facility] Comment on above: Performed By: #### U ARFX #### [place] [address] Ketones Ql (U) Negative Normal NEGATIVE [facility] Comment on above: Performed By: #### U ARFX #### [place] [address] Leukocyte esterase Test strip Ql (U) TRACE Abnormal NEGATIVE [facility] Comment on above: Performed By: #### U ARFX #### [place] [address] Nitrite Ql (U) Negative Normal NEGATIVE [facility] Comment on above: Performed By: #### U ARFX #### [place] [address] pH (U) 5.0 [pH] Normal 5.0 - 8.0 [facility] Comment on above: Performed By: #### U ARFX #### [place] [address] Protein Ql (U) 30 (1+) Abnormal NEGATIVE [facility] Comment on above: Performed By: #### U ARFX #### [place] [address] Specific gravity (U) [Rel density] 1.021 Normal 1.005 - 1.035 [facility] Comment on above: Performed By: #### U ARFX #### [place] [address] Urobilinogen (U) [Mass/Vol] mg/dL Normal 0.0 - 1.9 [facility] Comment on above: Performed By: #### U ARFX #### [facility] [address] [place] [address] URINE CULTURE,BACTERIALon URINE CULTURE,BACTERIAL PATIENT: ZULY WAGNER LOCATION: [facility] BILL#: [id number] : 81 AGE: SEX: F ORDERED BY: RAFI GROVES SOURCE: URINE COLLECTED: 05/01/23 06:42 ANTIBIOTICS AT KELVIN.: RECEIVED : 05/01/23 17:11 SITE: R E S U L T S URINE CULTURE,BACTERIAL FINAL 05/02/23 10:03 NO GROWTH Normal [facility] Comment on above: Performed By: #### U RINC #### [facility] [address] [place] [address] Office Visit (Primary Care F orct)on 09-10-2022 Follow-up visit Diagnosis/Problems Assessed Sore throat (462) (J02.9) x5 days with AUGUST and R ear pain with confirmed exposure to GAS. Recommend covid/flu/GAS testing - pt not able to come to office for swab and prefers to trial antibiotic first. WIll provide rx for antibiotic as well as nasal steroid as below. Medication dosing and side effects reviewed. Return precautions reviewed. This visit was completed virtually due to the restrictions of the COVID-19 pandemic. All issues as below were discussed and addressed, but no physical exam was performed. If it was felt that the patient should be evaluated in clinic, then they were directed there. The patient verbally consented to visit. Yeast vaginitis (112.1) (B37.31) Will provide rx for fluconazole for anticipated antibiotic-induced yeast vaginitis which she gets frequently. Medication dosing and side effects reviewed. Orders Sore throat Start: Amoxicillin-Pot Clavulanate 875-125 MG Oral Tablet; TAKE 1 TABLET EVERY 12 HOURS DAILY Rx By: Molly Cohen; Dispense: 7 Days ; #:14 Tablet; Refill: 0;For: Sore throat; HARPAL = N; Sent To: [facility]ARMACY #[id number] Start: Fluticasone Propionate 50 MCG/ACT Nasal Suspension; USE 1 SPRAY IN EACH NOSTRIL TWICE DAILY Rx By: Molly Cohen; Dispense: 0 Days ; #:1 X 16 GM Bottle; Refill: 1;For: Sore throat; HARPAL = N; Sent To: [facility]/PHARMACY #[id number] Yeast vaginitis Start: Fluconazole 150 MG Oral Tablet; TAKE 1 TABLET ONCE. MAY REPEAT IN 2 DAYS. Rx By: Molly Cohen; Dispense: 0 Days ; #:2 Tablet; Refill: 0;For: Yeast vaginitis; HARPAL = N; Sent To: [facility]/PHARMACY #0051 Chief Complaint Chief Complaints Visit For: Other A telephone visit (audio only) between the patient (at the originating site) and the provider (at the distant site) was utilized to provide this telehealth service. Telephone visit has a sore throat since last Friday , slight headache, mostly on right side,possible swollen gland on the right side she has been around children that have been diagnosed with strep throat History of Present IllnessPatient presents today via telephone visit with chief complaint of sore throat. States that this episode started 4 days ago with R-sided throat pain, AUGUST, R ear pain. Sore throat is worse with swallowing. Did look and her throat and states that there are no white spots. Denies CP, SOB, AUGUST, LH, dizziness, abd pain, n/v/d, sinus pressure, cough. Not sure if she's had a fever due to taking Tylenol/ibuprofen regularly since pain started. 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 Review of Systems Constitutional: no fever. Cardiovascular: no chest pain. Respiratory: no cough. All other systems have been reviewed and are negative for complaint. ENT: ear pain and sore throat. Neurological: headache. 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) (G47.411) Anjelica Omalley Renal cyst (753.10) (N28.1) 10/2019: 1.6cm L renal cyst 06/2020: 2.4cm simple L cortical cyst, repeat in 12mo 02/2021: 2.0cm cyst L Trace mitral valve regurgitation (424.0) (I34.0) 05/30/20: trace regurgitation, no MVP, EF 55-60% Echo q3-5 years Yeast vaginitis (112.1) (B37.31) Past Medical History Problems History of echocardiogram (V15.89) (Z92.89) Resolved Date: 30 May 2020 05/30/2020: EF 55-60%, trace mitral valve regurgitation Surgical History Problems History of Cardiac catheterization History of section History of Dilation and curettage History of Eye surgery History of Lithotripsy Family History Mother Family history of cardiac disorder (V17.49) (Z82.49) Family history of chronic obstructive pulmonary disease (V17.6) (Z82.5) Family history of diabetes mellitus (V18.0) (Z83.3) Family history of hypertension (V17.49) (Z82.49) Grandparent Family history of malignant neoplasm (V16.9) (Z80.9) Social History Problems Caffeine use (V49.89) (Z78.9) Cigarette smoker one half pack a day or less (305.1) (F17.210) Current smoker (305.1) (F17.200) since age 14 Does not have living will No alcohol use No illicit drug use Current Meds Medication NameInstruction Adderall 10 MG Oral Tablet Amphetamine-Dextroampheta mine 20 MG Oral TabletTAKE 1 TABLET TWICE DAILY. Anbesol Maximum Strength 20 % Mouth/Throat GelUSE DIRECTED. Auvi-Q 0.3 MG/0.3ML Injection Solution Auto-i (more content not included)... Normal [facility] Office Visit (Primary Care F orms)on 07-03-2022 Follow-up visit Diagnosis/Problems Assessed Acute sinusitis (461.9) (J01.90) Symptoms present x10d. Declines covid/influenza testing. Will cover possible bacterial involvement with antibiotic as below and will also provide rx for nasal steroid and cough syrup for symptomatic benefit. Fluconazole provided due to history of antibiotic-induced yeast vaginitis. Medication dosing and side effects reviewed. Return precautions and symptoms that should prompt urgent/emergent evaluation discussed. This visit was completed virtually due to the restrictions of the COVID-19 pandemic. All issues as below were discussed and addressed, but no physical exam was performed. If it was felt that the patient should be evaluated in clinic, then they were directed there. The patient verbally consented to visit. Spent 11 minutes with patient via telephone visit. Orders Acute sinusitis Start: Amoxicillin-Pot Clavulanate 875-125 MG Oral Tablet; TAKE 1 TABLET EVERY 12 HOURS DAILY Rx By: Molly Cohen; Dispense: 10 Days ; #:20 Tablet; Refill: 0;For: Acute sinusitis; HARPAL = N; Verified Transmission to [facility]/PHARMACY #[id number]; Last Updated By: Faye Foxtrot; 07/03/2022 3:39:20 PM Start: Fluconazole 150 MG Oral Tablet; TAKE 1 TABLET ONCE. MAY REPEAT IN 2 DAYS. Rx By: Molly Cohen; Dispense: 0 Days ; #:2 Tablet; Refill: 0;For: Acute sinusitis; HARPAL = N; Verified Transmission to [facility]/PHARMACY #[id number]; Last Updated By: Faye Foxtrot; 07/03/2022 3:39:19 PM Start: Fluticasone Propionate 50 MCG/ACT Nasal Suspension; USE 1 SPRAY IN EACH NOSTRIL TWICE DAILY Rx By: Molly Cohen; Dispense: 0 Days ; #:1 X 16 GM Bottle; Refill: 1;For: Acute sinusitis; HARPAL = N; Verified Transmission to [facility] #[id number]; Last Updated By: Faye Foxtrot; 07/03/2022 3:39:23 PM Start: Wohokwpwe-Aewgsvck-SY 30-2-10 MG/5ML Oral Syrup; TAKE 5 ML EVERY 4 TO 6 HOURS NEEDED Rx By: Molly Cohen; Dispense: 16 Days ; #:1 X 473 ML Bottle; Refill: 0;For: Acute sinusitis; HARPAL = N; Verified Transmission to [facility]/PHARMACY #[id number]; Last Updated By: System, Foxtrot; 07/03/2022 3:39:22 PM Chief Complaint Chief Complaints Visit For: Other A telephone visit (audio only) between the patient (at the originating site) and the provider (at the distant site) was utilized to provide this telehealth service. Verbal consent was requested and obtained from ZULY CLINE on this date, 07/03/2022 03:00 PM , for a telehealth visit. Virtual visit , started with runny nose, cough, non productive dry cough, body aches, sore scratchy throat, head congestion started before Thanksgiving break and is continually getting worse, has been taking OTC cold medication , Tylenol, Motrin History of Present IllnessPatient presents today via telephone visit with chief complaint of cough. States that this episode started about 10 days ago with dry cough, bl ear fullness, nasal congestion, rhinorrhea, myalgias, PND. States that daughter was recently sick with similar symptoms. Is not interested in covid testing. Has been taking otc cold medication without any improvement in symptoms. Actually, thinks her symptoms are getting worse with time. Denies CP, SOB, LH, dizziness, abd pain, n/v/d. Review of Systems Constitutional: no fever. Cardiovascular: no chest pain. Respiratory: cough. All other systems have been reviewed and are negative for complaint. ENT: sore throat, nose drainage, nose congestion, ear fullness and post nasal drip. 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) Anjelica Omalley Renal cyst (753.10) (N28.1) 10/2019: 1.6cm L renal cyst 06/2020: 2.4cm simple L cortical cyst, repeat in 12mo 02/2021: 2.0cm cyst L Trace mitral valve regurgitation (424.0) (I34.0) 05/30/20: trace regurgitation, no MVP, EF 55-60% Echo q3-5 years Yeast vaginitis (112.1) (B37.31) Past Medical History Problems History of echocardiogram (V15.89) (Z92.89) Resolved Date: 30 May 2020 05/30/2020: EF 55-60%, trace mitral valve regurgitation Surgical History Problems History of Cardiac catheterization History of section History of Dilation and curettage History of Eye surgery History of Lithotripsy Family History Mother Family history of cardiac disorder (V17.49) (Z82.49) Family history of chronic obstructive pulmonary disease (V17.6) (Z82.5) Family history of diabetes mellitus (V18.0) (Z83.3) Family h (more content not included)... Normal [facility] Office Visit (Primary Care F orms)on 03-27-2022 Follow-up visit Diagnosis/Problems Assessed Depression, major, single episode, moderate (296.22) (F32.1) Exacerbated due to life stressors. Discussed tx options. We will trial Lexapro as below. Medication dosing and side effects reviewed. Patient also agreeable to establishment with therapist. Follow up in 1mo for recheck, sooner if needed. Return precautions reviewed. Anxiety (300.00) (F41.9) Lexapro trial and psychology referral as above. Overweight with body mass index (BMI) of 25 to 25.9 in adult (278.02,V85.21) (E66.3,Z68.25) Orders Anxiety Start: Escitalopram Oxalate 10 MG Oral Tablet (Lexapro); Take 1 tablet daily Rx By: Molly Cohen; Dispense: 0 Days ; #:30 Tablet; Refill: 3;For: Anxiety; HARPAL = N; Verified Transmission to [facility]/PHARMACY #6132; Last Updated By: Lauren Mckinney; 03/27/2022 4:53:26 PM Adult Psychology Referral Evaluation and Treatment Evaluate AND Treat Status: Complete - ONLINE REFERRAL DONE TO [facility] Done: [id number] 09:35AM Ordered;For: Anxiety; Ordered By: Molly Cohen Performed: Due: 25Jun2022; Last Updated By: Naya Hernandez; 03/28/2022 9:35:45 AM ONLINE REFERRAL DONE TO [facility]. THEY WILL CONTACT PT. Chief Complaint Chief Complaints Visit For: Other Here today to discuss her medication History of Present IllnessPatient presents today to discuss mood. States that, due to significant life stressors, her anxiety and depression are both exacerbated. Struggling with mind racing, worry, low motivation. If afraid that it is going to start affecting her job and relationships, so is interested in trying a medication. States that therapy was not beneficial in the past, but open to trying again. Denies SI/HI. Is sleeping well. Review of Systems Constitutional: no fever. Cardiovascular: no chest pain. Respiratory: no cough. All other systems have been reviewed and are negative for complaint. Psychiatric: as noted in HPI. 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) Anjelica Omalley Renal cyst (753.10) (N28.1) 10/2019: 1.6cm L renal cyst 06/2020: 2.4cm simple L cortical cyst, repeat in 12mo 02/2021: 2.0cm cyst L Trace mitral valve regurgitation (424.0) (I34.0) 05/30/20: trace regurgitation, no MVP, EF 55-60% Echo q3-5 years Urinary frequency (788.41) (R35.0) Past Medical History Problems History of echocardiogram (V15.89) (Z92.89) Resolved Date: 30 May 2020 05/30/2020: EF 55-60%, trace mitral valve regurgitation Surgical History Problems History of Cardiac catheterization History of section History of Dilation and curettage History of Eye surgery History of Lithotripsy Family History Mother Family history of cardiac disorder (V17.49) (Z82.49) Family history of chronic obstructive pulmonary disease (V17.6) (Z82.5) Family history of diabetes mellitus (V18.0) (Z83.3) Family history of hypertension (V17.49) (Z82.49) Grandparent Family history of malignant neoplasm (V16.9) (Z80.9) Social History Problems Caffeine use (V49.89) (Z78.9) Cigarette smoker one half pack a day or less (305.1) (F17.210) Current smoker (305.1) (F17.200) since age 14 Does not have living will No alcohol use No illicit drug use Current Meds Medication NameInstruction Adderall 10 MG Oral Tablet Amphetamine-Dextroampheta mine 20 MG Oral TabletTAKE 1 TABLET TWICE DAILY. Anbesol Maximum Strength 20 % Mouth/Throat GelUSE DIRECTED. Auvi-Q 0.3 MG/0.3ML Injection Solution Auto-injectorINJECT 0.3ML INTRAMUSCULARLY DIRECTED. EPINEPHrine 0.3 MG/0.3ML Injection Solution Auto-injectorINJECT 0.3ML INTRAMUSCULARLY DIRECTED. Famotidine 40 MG Oral TabletTAKE 1 TABLET AT BEDTIME. Multivitamin TABSTAKE 1 TABLET DAILY. Omeprazole 20 MG Oral Capsule Delayed ReleaseTAKE 1 CAPSULE DAILY EVERY MORNING BEFORE BREAKFAST. Tretinoin 0.025 % External CreamAPPLY SPARINGLY TO AFFECTED AREA(S) ONCE DAILY AT BEDTIME. Triamcinolone Acetonide 0.1 % External CreamAPPLY A THIN LAYER TO AFFECTED AREA(S) TWICE DAILY. ZyrTEC Allergy 10 MG Oral TabletTAKE 1 TABLET Every twelve hours Allergies Medication No Known Drug Allergies Recorded By: Suha Perea; 05/01/2020 3:40:06 PM Vitals Vital Signs Recorded: [id number] 04:21PM Heart Rate80 [id number] Uubofsywx11 Height5 ft 5 in Jpikyh982 lb 15.84 oz BMI Skztjyjnut73.63 kg/m2 BSA Calculated1.77 Physical Exam Constitutional - Well developed, well nourished, well hydrated and no acute distress. Vital signs reviewed. Head and Face - Nor (more content not included)... Normal [facility] Cult, Urineon 01-25-2022 Bacteria identified Cx Nom (U) [place] [address] DO Work Phone: IO UA (automated w/o microsc opy)on 01-25-2022 Protein (U) [Mass/Vol] Negative [place] [address] DO Work Phone: IO UA (automated w/o microscopy) Negative [place] [address] DO Work Phone: IO UA (automated w/o microscopy) Normal (0.2-1.0 mg/dl) [place] [address] DO Work Phone: [phone] IO UA (automated w/o microscopy) 6.0 1 [place] [address] DO Work Phone: IO UA (automated w/o microscopy) (+)small - 15 [place] [address] DO Work Phone: IO UA (automated w/o microscopy) 1.020 1 [place] [address] DO Work Phone: [phone] IO UA (automated w/o microscopy) Clear [facility] 205 DO Work Phone: IO UA (automated w/o microscopy) [facility] 205 DO Work Phone: URINE CULTURE,BACTERIALon URINE CULTURE,BACTERIAL PATIENT: ZULY WAGNER LOCATION: [address]#: [id number] : 81 AGE: SEX: F ORDERED BY: MOLLY COHEN SOURCE: URINE COLLECTED: 01/25/22 11:45 ANTIBIOTICS AT [place]ELVIN.: RECEIVED : 01/25/22 23:43 SITE: Clean Catch/Voided R E S U L T S URINE CULTURE,BACTERIAL FINAL 01/27/22 09:30 NO GROWTH Normal [facility] Comment on above: Performed By: #### U [facility] #### [facility] [address] [place] [address] Office Visit (Primary Care F orct)on 12-25-2021 Follow-up visit Diagnosis/Problems Assessed Anxiety (300.00) (F41.9) Improving but not yet established with psychology - recommend [id number], patient will reach out. Return precautions reviewed. Milia (706.2) (L72.0) Tretinoin refill provided. Medication dosing and side effects reviewed. Cervical cancer screening (V76.2) (Z12.4) [facility] Anjelica Plans to make appt with MARIA FERNANDA Anjelica obgyn. Overweight with body mass index (BMI) of 26 to 26.9 in adult (278.02,V85.22) (E66.3,Z68.26) Orders Milia Start: Tretinoin 0.025 % External Cream; APPLY SPARINGLY TO AFFECTED AREA(S) ONCE DAILY AT BEDTIME Rx By: Molly Cohen; Dispense: 0 Days ; #:1 X 45 GM Tube; Refill: 1;For: Milia; HARPAL = N; Verified Transmission to [facility] #[id number]; Last Updated By: Lauren Mckinney; 12/25/2021 8:21:29 AM Patient Discussion/Summary Will follow up with labs results when available. Follow up in 6mo for recheck, sooner if needed. Return precautions reviewed. Chief Complaint 3 month check. 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 History of Present IllnessPatient presents today for follow up. Has not yet gotten labs done. Regarding anxiety, has not yet been able to schedule with psychology due to insurance coverage. Is feeling a little better now due to reconciling with her dad. She loves her new job and is considering seeing a counsellor there. Regarding milia, noted R cheek. Was given rx for tretinoin by dermatology and requests refill. Regarding anaphylaxis, no episodes since last eval. Review of Systems Constitutional: no fever. Cardiovascular: no chest pain. Respiratory: no cough. All other systems have been reviewed and are negative for complaint. Psychiatric: as noted in HPI. 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) Anjelica Omalley Renal cyst (753.10) (N28.1) 10/2019: 1.6cm L renal cyst 06/2020: 2.4cm simple L cortical cyst, repeat in 12mo 02/2021: 2.0cm cyst L Trace mitral valve regurgitation (424.0) (I34.0) 05/30/20: trace regurgitation, no MVP, EF 55-60% Echo q3-5 years Past Medical History Problems History of echocardiogram (V15.89) (Z92.89) Resolved Date: 30 May 2020 05/30/2020: EF 55-60%, trace mitral valve regurgitation Surgical History Problems History of Cardiac catheterization History of section History of Dilation and curettage History of Eye surgery History of Lithotripsy Family History Mother Family history of cardiac disorder (V17.49) (Z82.49) Family history of chronic obstructive pulmonary disease (V17.6) (Z82.5) Family history of diabetes mellitus (V18.0) (Z83.3) Family history of hypertension (V17.49) (Z82.49) Grandparent Family history of malignant neoplasm (V16.9) (Z80.9) Social History Problems Caffeine use (V49.89) (Z78.9) Cigarette smoker one half pack a day or less (305.1) (F17.210) Current smoker (305.1) (F17.200) since age 14 Does not have living will No alcohol use No illicit drug use Current Meds Medication NameInstruction Adderall 10 MG Oral Tablet Amphetamine-Dextroampheta mine 20 MG Oral TabletTAKE 1 TABLET TWICE DAILY. Anbesol Maximum Strength 20 % GELUSE DIRECTED. Auvi-Q 0.3 MG/0.3ML Injection Solution Auto-injectorINJECT 0.3ML INTRAMUSCULARLY DIRECTED. EPINEPHrine 0.3 MG/0.3ML Injection Solution Auto-injectorINJECT 0.3ML INTRAMUSCULARLY DIRECTED. Famotidine 40 MG Oral TabletTAKE 1 TABLET AT BEDTIME. Multivitamin TABSTAKE 1 TABLET DAILY. Omeprazole 20 MG Oral Capsule Delayed ReleaseTAKE 1 CAPSULE DAILY EVERY MORNING BEFORE BREAKFAST. Triamcinolone Acetonide 0.1 % External CreamAPPLY A THIN LAYER TO AFFECTED AREA(S) TWICE DAILY. ZyrTEC Allergy 10 MG Oral TabletTAKE 1 TABLET Every twelve hours Allergies Medication No Known Drug Allergies Recorded By: Suha Perea; 05/01/2020 3:40:06 PM Vitals Vital Signs Recorded: [id number] 08:02AM Heart Rate80 Oulwgxaw481 Jxopgjoxb60 Height5 ft 5 in Yvesuh318 lb BMI Uytpvycpwk37.46 kg/m2 BSA Calculated1.79 Tobacco Usea) Yes Physical Exam Constitutional - Well developed, well nourished, well hydrated and no acute distress. Vital signs reviewed. Head and Face - Normocephalic, atraumatic. Eyes - No redness, edema or visible abnormality of conjunctiva or lids. Neck - Full range of motion. No significant adenopathy. Pulmonary - normal respiratory effort. Lungs are clear without rales, rhonchi, or wheezing. Cardiovascular - Regular rate and rhythm. No significant murmur. no significant lower extremity edema. Skin - No s (more content not included)... Normal [facility] Tobacco Screening.on 022 Tobacco use status [facility] a) Yes [facility] Services-Kristopher etienne [facility] 205 DO Work Phone: Office Visit (Primary Care F orms)on 09-25-2021 Follow-up visit Diagnosis/Problems Assessed Anxiety (300.00) (F41.9) Secondary to strained relationship with father. Will provide referral for establishment with therapist per pt report. Provided encouragement. Follow up in 3mo for recheck, sooner if needed. Overweight with body mass index (BMI) of 27 to 27.9 in adult (278.02,V85.23) (E66.3,Z68.27) Cervical cancer screening (V76.2) (Z12.4) [facility] Anjelica Plans to make appt with [facility] Anjelica montoya. Orders Anxiety Adult Psychology Referral Evaluation and Treatment Evaluate AND Treat Status: Hold For - Scheduling Requested for: 25Sep2021 Ordered;For: Anxiety; Ordered By: Molly Cohen Performed: Due: 24Dec2021 Health Maintenance Complete Blood Count + Differential; Status:Active; Requested for:25Sep2021; Perform:Lab Services - Lab To Draw (Blood Test); Due:24Dec2021;Ordered; For:Health Maintenance; Ordered By:Molly Cohen; Comprehensive Metabolic Panel; Status:Active; Requested for:25Sep2021; Perform:Lab Services - Lab To Draw (Blood Test); Due:24Dec2021;Ordered; For:Health Maintenance; Ordered By:Molly Cohen; Lipid Panel; Status:Active; Requested for:25Sep2021; Perform:Lab Services - Lab To Draw (Blood Test); Due:24Dec2021;Ordered; For:Health Maintenance; Ordered By:Molly Cohen; Patient Discussion/Summary Will obtain labs as above and follow up with results. Chief Complaint 3 month check. No concerns Adult Risk Screening Depression/Suicide Screening: During the past 2 weeks, the patient has not felt down, depressed or hopeless. During the past 2 weeks, the patient has not felt little interest or pleasure in doing things. History of Present Illness Patient presents today for follow up. Regarding life stressors, states that she has had a strained relationship with her father for the past few months. Denies depression, SI/HI. States that her weight loss is likely secondary to her worrying about this situation. She requests referral for establishment with counsellor so that she can learn healthy ways to improve their relationship. Cervical Cancer Screening: [facility], plans to make appt Breast Cancer Screening: plan to start at age 38 Osteoporosis Screening: plan to start at age 63 Colon Cancer Screening: plan to start at age 43 Tobacco: not yet ready to quit Alcohol: denies Recreational Drugs: denies Immunizations: declines covid, missed influenza this year, otherwise UTD Review of Systems Constitutional: no fever. Cardiovascular: no chest pain. Respiratory: no cough. All other systems have been reviewed and are negative for complaint. Psychiatric: as noted in HPI. 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) Anjelica Omalley Renal cyst (753.10) (N28.1) 10/2019: 1.6cm L renal cyst 06/2020: 2.4cm simple L cortical cyst, repeat in 12mo 02/2021: 2.0cm cyst L Trace mitral valve regurgitation (424.0) (I34.0) 05/30/20: trace regurgitation, no MVP, EF 55-60% Echo q3-5 years Past Medical History Problems History of echocardiogram (V15.) (Z92.89) Resolved Date: 30 May 2020 05/30/2020: EF 55-60%, trace mitral valve regurgitation Surgical History Problems History of Cardiac catheterization History of section History of Dilation and curettage History of Eye surgery History of Lithotripsy Family History Mother Family history of cardiac disorder (V17.49) (Z82.49) Family history of chronic obstructive pulmonary disease (V17.6) (Z82.5) Family history of diabetes mellitus (V18.0) (Z83.3) Family history of hypertension (V17.49) (Z82.49) Grandparent Family history of malignant neoplasm (V16.9) (Z80.9) Social History Problems Caffeine use (V49.89) (Z78.9) Cigarette smoker one half pack a day or less (305.1) (F17.210) Current smoker (305.1) (F17.200) since age 14 Does not have living will No alcohol use No illicit drug use Current Meds Medication NameInstruction Adderall 10 MG Oral Tablet Amphetamine-Dextroampheta mine 20 MG Oral TabletTAKE 1 TABLET TWICE DAILY. Anbesol Maximum Strength 20 % GELUSE DIRECTED. Auvi-Q 0.3 MG/0.3ML Injection Solution Auto-injectorINJECT 0.3ML INTRAMUSCULARLY DIRECTED. EPINEPHrine 0.3 MG/0.3ML Injection Solution Auto-injectorINJECT 0.3ML INTRAMUSCULARLY DIRECTED. Famotidine 40 MG Oral TabletTAKE 1 TABLET AT BEDTIME. Fluconazole 150 MG Oral TabletTAKE 1 TABLET ONCE. MAY REPEAT IN 2 DAYS.. Multivitamin TABSTAKE 1 TABLET DAILY. Omeprazole 20 MG Oral Capsule Delayed ReleaseTAKE 1 CAPSULE DAILY EVERY MORNING BEFORE BREAKFAST. Triamcinolone Acetonide 0.1 % External CreamAPPLY A THIN LAYER TO AFFECTED AREA(S) TWICE DAILY. Xolair (more content not included)... Normal [employer] Tobacco Screening.on 022 Tobacco use status [facility] a) Yes [facility] DO Work Phone: Activated Partial Thrombopla stin Timeon 06-27-2021 aPTT Coag (PPP) [Time] 33 s 25 - 35 [facility] DO Work Phone: Comment on above: THE APTT IS NO LONGE R USED FOR MONITORING UNFRACTIONATED HEPARIN THERAPY. FOR MONITORING HEPARIN THERAPY, USE THE HEPARIN ASSAY. Complete Blood Count + Diffe rentialon 06-27-2021 Basophils/100 WBC (Bld) 0.5 % 0.0 - 2.0 [facility] 205 DO Work Phone: Erythrocyte distribution width (RBC) [Ratio] 14.8 % above high threshold See Below [facility] 205 DO Work Phone: Comment on above: Reference Range: 11. 5 - 14.5 Hematocrit (Bld) [Volume fraction] 41.9 % See Below [facility] 205 DO Work Phone: Comment on above: Reference Range: 36. 0 - 46.0 Hemoglobin (Bld) [Mass/Vol] 13.4 g/dL See Below [facility] 205 DO Work Phone: Comment on above: Reference Range: 12. 0 - 16.0 Lymphocytes/100 WBC (Bld) 28.9 % See Below [facility] 205 DO Work Phone: Comment on above: Reference Range: 13. 0 - 44.0 MCHC (RBC) [Mass/Vol] 31.9 g/dL below low threshold See Below [facility] 205 DO Work Phone: Comment on above: Reference Range: 32. 0 - 36.0 MCV (RBC) [Entitic vol] 89 fL 80 - 100 [facility] 205 DO Work Phone: Monocytes/100 WBC (Bld) 8.7 % 2.0 - 10.0 [facility] 205 DO Work Phone: Neutrophils/100 WBC (Bld) 56.2 % See Below [facility] 205 DO Work Phone: Comment on above: Reference Range: 40. 0 - 80.0 Platelets (Bld) [#/Vol] 415 10*3/uL 150 - 450 [facility] 205 DO Work Phone: RBC (Bld) [#/Vol] 4.70 {x10E12/L} See Below [facility] 205 DO Work Phone: Comment on above: Reference Range: 4.0 0 - 5.20 WBC (Bld) [#/Vol] 9.0 10*3/uL 4.4 - 11.3 [facility] 205 DO Work Phone: Complete Blood Count + Differential 0.00 {x10E9/L} See Below [facility] 205 DO Work Phone: Comment on above: Reference Range: 0.0 0 - 0.10 Complete Blood Count + Differential 0.50 {x10E9/L} See Below [facility] 205 DO Work Phone: Comment on above: Reference Range: 0.0 0 - 0.70 Complete Blood Count + Differential 0.80 {x10E9/L} See Below [facility] Work Phone: Comment on above: Reference Range: 0.1 0 - 1.00 Complete Blood Count + Differential 2.60 {x10E9/L} See Below [facility] DO Work Phone: Comment on above: Reference Range: 1.2 0 - 4.80 Complete Blood Count + Differential 5.00 {x10E9/L} See Below [facility] 205 DO Work Phone: Comment on above: Reference Range: 1.2 0 - 7.70 Percent differential counts (%) should be interpreted in the context of the absolute cell counts (cells/L). Complete Blood Count + Differential 5.7 % 0.0 - 6.0 [facility] 205 DO Work Phone: Complete Blood Count + Differential 0.1 {/100_WBC} [place] [address] DO Work Phone: Laboratory - Coagulationon 1 08-27-2020 INR Coag (PPP) [Relative time] 1.0 {INR} 0.9 - 1.1 [place] [address] DO Work Phone: PT Coag (PPP) [Time] 11.9 s See Below [place] [address] DO Work Phone: Comment on above: Reference Range: 10. 1 - 13.3 No Panel Informationon 06-27 [place] [address] DO Work Phone: Tobacco Screening.on 021 Tobacco use status [facility] a) Yes [place] [address] DO Work Phone: Coronavirus 2019 RNA by PCR, Symptomaticon 04-16-2021 Date and time of symptom onset [id number] [place] [address] DO Work Phone: Coronavirus 2019 RNA by PCR, Symptomatic Not detected Normal See Below [place] [address] DO Work Phone: Comment on above: SOURCE: Nasal, Nasop haryngealReference Range: Not Detected.This assay is designed to detect the N, ORF1ab and/or S genes of SARS-CoV-2 via nucleic acid amplification. A Negative (NOT DETECTED) result does not preclude 2019-nCoV infection since the adequacy of sample collection and/or low viral burden may result in presence of viral nucleic acids below the clinical sensitivity of this test method. Negative (NOT DETECTED) result should not be used as the sole basis for treatment or other patient management decisions. Rather negative results should be combined with clinical observations, patient history, and epidemiological information to make patient management decisions.Fact sheet for providers: https://www.fda.gov/media/677237/downloadFact sheet for patients: https://www.fda.gov/media/978096/downloadThis test has received FDA Emergency Use Authorization (EUA) and has been verified by [facility] ([facility]). This test is only authorized for the duration of time that circumstances exist to justify the authorization of the emergency use of in vitro diagnostic tests for the detection of SARS-CoV-2 virus and/or diagnosis of COVID-19 infection under section 564(b)(1) of the Act, 21 U.S.C. 360bbb-3(b)(1), unless the authorization is terminated or revoked sooner. [facility] is certified under CLIA-88 as qualified to perform high complexity testing. Testing is performed in the [facility] laboratories located at [address] [place] [address]. Radiologyon 02-01-2021 Kidney - bilateral Normal [place] [address] DO Work Phone: No Panel Informationon 01-30 [facility] 205 DO Work Phone: No Panel Informationon 01-23 [facility] 205 DO Work Phone: Hepatitis C Antibody Teston 06-28-2020 Hepatitis C Antibody Test NONREACTIVE See Below -[facility] [place] 1200 Work Phone: Comment on above: SOURCE: Reference Ra nge: NONREACTIVE Results from patients taking biotin supplements or receiving high-dose biotin therapy should be interpreted with caution due to possible interference with this test. Providers may contact their local laboratory for further information. Otheron 06-20-2020 US Kidney - bilateral Interpreted by: OLEGARIO ALMONTE06/20/20 14:44MRN: [id number] Name: CHAR MCKEONS ZULY STUDY:US RENAL BILAT; 06/20/2020 1:22 pm INDICATION:follow up renal cyst. COMPARISON:None. ORDERING CLINICIAN:MOLLY COHEN TECHNIQUE:Multiple images of the kidneys were obtained . FINDINGS:RIGHT KIDNEY:The right kidney measures 12.5 cm. The renal parenchymal echogenicityis normal. No nephrolithiasis. Mild right hydronephrosis. LEFT KIDNEY:The left kidney measures 8 cm. The renal parenchymal echogenicity isnormal. 2.4 x 0.8 x 2 cm simple cortical renal cyst in the upper poleof the left kidney. A 0.7 x 1 cm hyperechoic shadowing focus in thelower pole of the left kidney, suggestive of a stone. Nohydronephrosis. BLADDER: The urinary bladder is unremarkable. IMPRESSION:1. Mild right hydronephrosis.2. Left nephrolithiasis.3. 2.4 cm simple left cortical cyst. Electronically signed by: DAMIAN ALMONTE 06/20/20 14:44 Normal [employer] Work Phone: Comment on above: ORDER REVISED TO A [facility] RENAL BILAT BY RADIOLOGIST; Original Order Number: [id number] ANCA With Reflex to MPO, PR3 on 06-05-2020 Neutrophil cytoplasmic IgG IF (S) [Titer] <1:20 <1:20 [employer] Work Phone: Comment on above: The ANCA IFA is <1:2 0; therefore, no further testing will be performed.INTERPRETIVE INFORMATION: Anti-Neutrophil Cyto Ab, IgGNeutrophil Cytoplasmic Antibodies (C-ANCA = granular cytoplasmic staining, P-ANCA = perinuclear staining) are found in the serum of over 90 percent of patients with certain necrotizing systemic vasculitides, and usually in less than 5 percent of patients with collagen vascular disease or arthritis.Performed By: [facility] [place] [id number] Director: Bianka Loving MD C Reactive Protein, Serumon 06-05-2020 CRP [Mass/Vol] 0.21 mg/dL [employer] Work Phone: Comment on above: REF VALUE< 1.00 Complete Blood Count + Diffe rentialon 06-05-2020 Erythrocyte distribution width (RBC) [Ratio] 14.6 % above high threshold See Below [employer] Work Phone: Comment on above: Reference Range: 11. 5 - 14.5 Hematocrit (Bld) [Volume fraction] 42.5 % See Below [facility] [place] [address] Work Phone: Comment on above: Reference Range: 36. 0 - 46.0 Hemoglobin (Bld) [Mass/Vol] 13.9 g/dL See Below [facility] [place] [address] Work Phone: Comment on above: Reference Range: 12. 0 - 16.0 MCHC (RBC) [Mass/Vol] 32.6 g/dL See Below [facility] [place] [address] Work Phone: Comment on above: Reference Range: 32. 0 - 36.0 MCV (RBC) [Entitic vol] 89 fL 80 - 100 [place] [address] Work Phone: Platelets (Bld) [#/Vol] 363 {x10E9/L} 150 - 450 [place] [address] Work Phone: RBC (Bld) [#/Vol] 4.78 {x10E12/L} See Below [place] [address] Work Phone: Comment on above: Reference Range: 4.0 0 - 5.20 WBC (Bld) [#/Vol] 12.2 {x10E9/L} above high threshold 4.4 - 11.3 [place] [address] Work Phone: Complete Blood Count + Differential SEE MANUAL DIFF [place] [address] Work Phone: Hematologyon 06-05-2020 Band form neutrophils/100 WBC (Bld) 1.0 % 0.0 - 5.0 [place] [address] Work Phone: Basophils (Bld) [#/Vol] 0.00 {x10E9/L} See Below [facility] [place] [address] Work Phone: Comment on above: Reference Range: 0.0 0 - 0.10 Basophils/100 WBC (Bld) 0.0 % 0.0 - 2.0 -[facility] [place] [address] Work Phone: Eosinophils (Bld) [#/Vol] 0.00 {x10E9/L} See Below [facility] [place] [address] Work Phone: Comment on above: Reference Range: 0.0 0 - 0.70 Eosinophils/100 WBC (Bld) 0.0 % 0.0 - 6.0 [facility] [place] [address] Work Phone: Lymphocytes (Bld) [#/Vol] 0.73 {x10E9/L} below low threshold See Below -[facility] [place] [address] Work Phone: Comment on above: Reference Range: 1.2 0 - 4.80 Lymphocytes/100 WBC (Bld) 6.0 % See Below -[facility] [place] [address] Work Phone: Comment on above: Reference Range: 13. 0 - 44.0 Monocytes (Bld) [#/Vol] 0.24 {x10E9/L} See Below -[facility] [place] [address] Work Phone: Comment on above: Reference Range: 0.1 0 - 1.00 Monocytes/100 WBC (Bld) 2.0 % 2.0 - 10.0 -[facility] [address] Work Phone: Metabolic Panelon 06-05-2020 ALP [Catalytic activity/Vol] 58 U/L 33 - 110 -[facility] [place] [address] Work Phone: Anion gap [Moles/Vol] 11 mmol/L 10 - 20 MP- [facility] [place] [address] Work Phone: Bilirubin [Mass/Vol] 0.4 mg/dL 0.0 - 1.2 MP-[facility] [address] Work Phone: Calcium [Mass/Vol] 9.1 mg/dL 8.6 - 10.3 MP-[facility] [place] [address] Work Phone: Chloride [Moles/Vol] 103 mmol/L 98 - 107 MP-[facility] [place] [address] Work Phone: CO2 [Moles/Vol] 27 mmol/L 21 - 32 [facility] [place] [address] Work Phone: Creatinine [Mass/Vol] 0.71 mg/dL See Below [facility]- [facility] [place] [employer] Work Phone: Comment on above: Reference Range: 0.5 0 - 1.05 Glucose [Mass/Vol] 113 mg/dL above high threshold 74 - 99 [facility] [place] [address] Work Phone: Potassium [Moles/Vol] 3.7 mmol/L 3.5 - 5.3 - [facility] [place] [employer] Work Phone: Protein [Mass/Vol] 6.8 g/dL 6.4 - 8.2 -[facility] [place] [employer] Work Phone: Sodium [Moles/Vol] 137 mmol/L 136 - 145 [facility] [place] [address] Work Phone: Urea nitrogen [Mass/Vol] 9 mg/dL 6 - 23 [facility] [place] [employer] Work Phone: Otheron 06-05-2020 XR Chest 2 views Interpreted by: FAVIOLA GERMAN06/05/20 16:52MRN: [id number] Name: ZULY WAGNER STUDY:TH CHEST 2 VIEW PA AND LAT; 06/05/2020 3:53 pm INDICATION:eosinophilia, anaphylaxis. COMPARISON:None. ORDERING CLINICIAN:TATA REID FINDINGS:PA and lateral radiographs of the chest were provided. CARDIOMEDIASTINAL SILHOUETTE:Cardiomediasti nal silhouette is normal in size and configuration. LUNGS:Lungs are clear. ABDOMEN:No remarkable upper abdominal findings. BONES:No acute osseous changes. Note is made of mild pectus excavatumdeformity. IMPRESSION:1. No evidence of acute cardiopulmonary process. Electronically signed by: FAVIOLA GERMAN 06/05/20 16:52 Normal -[facility] [place] [employer] Work Phone: Albumin BCP dye [Mass/Vol] 4.2 g/dL 3.4 - 5.0 [facility] [employer] Work Phone: ALT With P-5'-P [Catalytic activity/Vol] 14 U/L 7 - 45 [facility] [employer] Work Phone: Comment on above: Patients treated wit h Sulfasalazine may generate falsely decreased results for ALT. AST With P-5'-P [Catalytic activity/Vol] 11 U/L 9 - 39 [facility] [employer] Work Phone: Segmented neutrophils/100 WBC (Bld) 91.0 % See Below [facility]HE[facility]IL[facility] CENTERIngenic[facility] [employer] Work Phone: Comment on above: Reference Range: 40. 0 - 80.0 Percent differential counts (%) should be interpreted in the context of the absolute cell counts (cells/L). >60 >60 [facility]genicHEBREW REHABILITATION CENTERIngenic[facility] [employer] Work Phone: Comment on above: CALCULATIONS OF YASEMIN MATED GFR ARE PERFORMED USING THE MDRD STUDY EQUATION FOR THE IDMS-TRACEABLE CREATININE METHODS. CLIN CHEM 2007;53:766-72 0.12 {x10E9/L} See Below [facility] Work Phone: Comment on above: Reference Range: 0.0 0 - 0.70 11.10 {x10E9/L} above high threshold See Below [facility] [employer] Work Phone: Comment on above: Reference Range: 1.2 0 - 7.00 NORMAL [facility] [employer] Work Phone: 11.22 {x10E9/L} above high threshold See Below [facility] [employer] Work Phone: Comment on above: Reference Range: 1.2 0 - 7.70 Sedimentation Rate, Erythroc yteon 06-05-2020 ESR (Bld) [Velocity] 4 mm/h 0 - 20 -[facility] [place] [address] Work Phone: Urinalysison 06-05-2020 Appearance (U) HAZY CLEAR -[facility] [place] [address] Work Phone: Color (U) Yellow See Below -[facility] [place] [address] Work Phone: Comment on above: Reference Range: STR AW,YELLOW Glucose Ql (U) Negative NEGATIVE -[facility] [place] [address] Work Phone: Ketones Ql (U) Negative NEGATIVE [facility] [place] [address] Work Phone: Leukocyte esterase Test strip Ql (U) Negative NEGATIVE -[facility] [place] [address] Work Phone: pH (U) 8.0 [pH] 5.0 - 8.0 -[facility] [place] [address] Work Phone: Protein (U) [Mass/Vol] Negative NEGATIVE -[facility] [place] [address] Work Phone: RBC (U) [#/Vol] Negative NEGATIVE [facility] [place] [address] Work Phone: Specific gravity (U) [Rel density] 1.010 See Below -[facility] [place] [address] Work Phone: Comment on above: Reference Range: 1.0 05 - 1.035 Urinalysis <2.0 0.0 - 1.9 -[facility] [place] [address] Work Phone: Urinalysis Negative NEGATIVE -[facility] [place] [address] Work Phone: Otheron 2020 Chronic urticaria index Qn (S) 2.5 <10 -[facility] [place] [address] Work Phone: Comment on above: The CU Index(R) test is the second generation Functional Anti-FceR test. Patients with a CU Index(R) greater than or equal to 10 have basophil reactive factors in their serum which supports an autoimmune basis for disease.*This test was developed and its performance characteristics determined by [employer]. It has not been cleared or approved by the U.S. Food and Drug Administration. Performed At:[facility] [place] [address] [facility] Director: Angeles Cool PhD HCLD([facility])CLIA# [id number] Tryptase, Serumon 2020 Tryptase [Mass/Vol] 5.7 {mcg/L} <11.0 MP-W SPC-N [place] 1200 Work Phone: Comment on above: The Tryptase test, f luorescent enzyme immunoassay(FEIA), measures both the Alpha and Beta forms ofTryptase. Measuring both forms of Tryptase increasessensitivity for the diagnosis of mastocytosis, andmast cell degranulation as a cause of anaphylaxis. C-1 Esterase Inhibitor Total , Serumon 05-09-2020 Complement C1 esterase inhibitor [Mass/Vol] 33 mg/dL 21-39 JP-WRXL-Zait [employer] Work Phone: Complete Blood Count + Diffe rentialon 05-07-2020 Basophils (Bld) [#/Vol] 0.00 {x10E9/L} See Below DC-PEYY-Wpmw [employer] 2300 Work Phone: Comment on above: Reference Range: 0.0 0 - 0.10 Ordering Provider: Cornell QUINONES 51053 Basophils/100 WBC (Bld) 0.3 % 0.0 - 2.0 WF-AOQX-Yzvl [employer] Work Phone: Comment on above: Ordering Provider: Cornell QUINONES 92222 Eosinophils (Bld) [#/Vol] 0.30 {x10E9/L} See Below WK-KWYO-Kpkn [employer] 2300 Work Phone: Comment on above: Reference Range: 0.0 0 - 0.70 Ordering Provider: Cornell Barlow Eosinophils/100 WBC (Bld) 2.9 % 0.0 - 6.0 TL-PNUJ-Jtjw [employer] Work Phone: Comment on above: Ordering Provider: Cornell Barlow Erythrocyte distribution width (RBC) [Ratio] 14.1 % See Below EQ-YESR-Tswb [employer] Work Phone: Comment on above: Reference Range: 11. 5 - 14.5 Ordering Provider: Cornell Barlow Hematocrit (Bld) [Volume fraction] 41.5 % See Below YS-ESSY-Rpci [employer] Work Phone: Comment on above: Reference Range: 36. 0 - 46.0 Ordering Provider: Cornell Cochran146 Hemoglobin (Bld) [Mass/Vol] 13.6 g/dL See Below AN-IWMR-Iirk [employer] Work Phone: Comment on above: Reference Range: 12. 0 - 16.0 Ordering Provider: Cornell Cochran146 Lymphocytes (Bld) [#/Vol] 1.70 {x10E9/L} See Below RX-ZUWP-Btvv [employer] Work Phone: Comment on above: Reference Range: 1.2 0 - 4.80 Ordering Provider: Cornell QUINONES 37117 Lymphocytes/100 WBC (Bld) 14.9 % See Below BW-YRGD-Itxd [employer] Work Phone: Comment on above: Reference Range: 13. 0 - 44.0 Ordering Provider: Cornell QUINONES 34777 MCHC (RBC) [Mass/Vol] 32.8 g/dL See Below [employer]- WSPC-Spec [employer] Work Phone: Comment on above: Reference Range: 32. 0 - 36.0 Ordering Provider: Cornell Cochran146 MCV (RBC) [Entitic vol] 87 fL 80 - 100 HF-PFAW-Ykvl [employer] Work Phone: Comment on above: Ordering Provider: Cornell QUINONES 10603 Monocytes (Bld) [#/Vol] 0.40 {x10E9/L} See Below CG-MFZD-Rpnc ialty [place] 2300 Work Phone: [phone] Comment on above: Reference Range: 0.1 0 - 1.00 Ordering Provider: Cornell QUINONES 82007 Monocytes/100 WBC (Bld) 3.1 % 2.0 - 10.0 HK-KQTJ-Ncrx ialty [place] 0 Work Phone: [phone] Comment on above: Ordering Provider: Cornell QUINONES 49918 Neutrophils/100 WBC (Bld) 78.8 % See Below RN-UNTW-Mhju [employer]Ultimate [employer] 0 Work Phone: [phone] Comment on above: Reference Range: 40. 0 - 80.0 Ordering Provider: Cornell QUINONES 27814 Platelets (Bld) [#/Vol] 356 {x10E9/L} 150 - 450 EE-SILU-Luil ialty [employer] 0 Work Phone: [phone] Comment on above: Ordering Provider: Cornell QUINONES 16760 RBC (Bld) [#/Vol] 4.76 {x10E12/L} See Below MP -WSPC-Spec ialty [employer] 0 Work Phone: [phone] Comment on above: Reference Range: 4.0 0 - 5.20 Ordering Provider: Cornell QUINONES 54743 WBC (Bld) [#/Vol] 11.4 {x10E9/L} above high threshold 4.4 - 11.3 MT-LADY-Dvuc ialty [place] 0 Work Phone: [phone] Comment on above: Ordering Provider: Cornell QUINONES 13378 WBC (Bld) [#/Vol] 0.1 {/100_WBC} MP- WSPC-Spec ialty [place] 2300 Work Phone: [phone] Comment on above: Ordering Provider: Cornell QUINONES 60839 Complete Blood Count + Differential 9.00 {x10E9/L} above high threshold See Below WT-VAOQ-Zzun ialty [place] 0 Work Phone: Comment on above: Reference Range: 1.2 0 - 7.70 Percent differential counts (%) should be interpreted in the context of the absolute cell counts (cells/L). Ordering Provider: Cornell QUINONES 04692 Lactate, Levelon 05-07-2020 Lactate [Moles/Vol] 0.6 mmol/L 0.4 - 2.0 MP-WS PC-Spec ialty [employer] 2300 Work Phone: Comment on above: Venipuncture immedia tely after or during the administration of Metamizole may lead to falsely low results. Testing should be performed immediately prior to Metamizole dosing. Ordering Provider: Cornell QUINONES 70982 Metabolic Panelon 05-07-2020 ALP [Catalytic activity/Vol] 63 U/L 33 - 110 TQ-OOKB-Sndh ialty [place] 2300 Work Phone: Comment on above: Ordering Provider: Cornell QUINONES 93515 Anion gap [Moles/Vol] 9 mmol/L below low threshold 10 - 20 HJ-CJKZ-Vwqu ialty [place] 2300 Work Phone: Comment on above: Ordering Provider: Cornell QUINONES 17968 Bilirubin [Mass/Vol] 0.4 mg/dL 0.0 - 1.2 MP-W SPC-Spec ialty [employer] 2300 Work Phone: Comment on above: Ordering Provider: Cornell QUINONES 34738 Calcium [Mass/Vol] 9.3 mg/dL 8.6 - 10.3 MP-WSP C-Spec ialty [employer] 2300 Work Phone: Comment on above: Ordering Provider: Cornell QUINONES 47743 Chloride [Moles/Vol] 102 mmol/L 98 - 107 MP-W SPC-Spec ialty [place] 2300 Work Phone: Comment on above: Ordering Provider: Cornell QUINONES 18987 CO2 [Moles/Vol] 27 mmol/L 21 - 32 MP-WSPC-S pec ialty [place] 2300 Work Phone: Comment on above: Ordering Provider: Cornell QUINONES 06930 Creatinine [Mass/Vol] 0.78 mg/dL See Below MP- WSPC-Spec [employer] Work Phone: Comment on above: Reference Range: 0.5 0 - 1.05 Ordering Provider: Cornell QUINONES 28918 Glucose [Mass/Vol] 103 mg/dL above high threshold 74 - 99 IT-NQUZ-Vtbj [employer] Work Phone: Comment on above: Ordering Provider: Cornell QUINONES 78194 Potassium [Moles/Vol] 3.4 mmol/L below low threshold 3.5 - 5.3 IQ-NDFF-Gdeb [employer] Work Phone: Comment on above: Ordering Provider: Cornell Barlow Protein [Mass/Vol] 6.9 g/dL 6.4 - 8.2 MP-WSP C-Spec [employer] Work Phone: Comment on above: Ordering Provider: Cornell QUINONES 53219 Sodium [Moles/Vol] 135 mmol/L below low threshold 136 - 145 GD-VGVD-Djaj [employer] Work Phone: Comment on above: Ordering Provider: Cornell Barlow Urea nitrogen [Mass/Vol] 8 mg/dL 6 - 23 YT-NUXZ-Hako [employer] Work Phone: Comment on above: Ordering Provider: Cornell Cochran146 Otheron 05-07-2020 Albumin BCP dye [Mass/Vol] 4.4 g/dL 3.4 - 5.0 DU-IDBW-Jozb [employer] Work Phone: Comment on above: Ordering Provider: Cornell Cochran146 ALT With P-5'-P [Catalytic activity/Vol] 11 U/L 7 - 45 AX-ELJY-Vekn [employer] Work Phone: Comment on above: Patients treated wit h Sulfasalazine may generate falsely decreased results for ALT. Ordering Provider: Cornell QUINONES 65412 AST With P-5'-P [Catalytic activity/Vol] 13 U/L 9 - 39 MM-BPTP-Gmbq ialty [place] 2300 Work Phone: [phone] Comment on above: Ordering Provider: Cornell QUINONES 91259 >60 >60 MM-YGEA-Jvkm ialty [place] 2300 Work Phone: [phone] Comment on above: Ordering Provider: Cornell QUINONES 78705 CALCULATIONS OF YASEMIN MATED GFR ARE PERFORMED USING THE MDRD STUDY EQUATION FOR THE IDMS-TRACEABLE CREATININE METHODS. CLIN CHEM 2007;53:766-72 41 1 XO-HDPF-Qstz ialty [place] 2300 Work Phone: [phone] [email or web address] ?RetrieveTestByDateTime?P vhvkspYZ=[id number]&Date=0 10-12-2019&Time=22%3a32%3a 39%3a00&TestType=ECG&Site =14&OutputType=PDF&Ext=PD F BP-VJCT-Rzxf ialty [place] 2300 Work Phone: [phone] IR-UCCX-Ifac ialty [place] 2300 Work Phone: [phone] DI-JVHN-Sxsc ialty [place] 2300 Work Phone: [phone] ZI-SLYO-Sdxw ialty [place] 2300 Work Phone: [phone] MC-EIHU-Zbeo ialty [place] 2300 Work Phone: [phone] ZW-MHFJ-Bfqf ialty [place] 2300 Work Phone: [phone] EI-EYHJ-Skoj ialty [place] 2300 Work Phone: Please see physicia n note for formal interpretation confirmed by Scribe MJ-JXRH-Tavr ialty [place] 2300 Work Phone: [phone] CQ-HHXG-Mawr ialty [place] 2300 Work Phone: [phone] KL-TABX-Oznj ialty [place] 2300 Work Phone: [phone] VH-XWMP-Pdla ialty [place] 2300 Work Phone: [phone] IG-XIVM-Mbvo ialty [place] 2300 Work Phone: [phone] UD-ZLGV-Ywtd ialty [place] 2300 Work Phone: [phone] IZ-SKAV-Mkgz ialty [place] 2300 Work Phone: [facility] 05-01-2020 A. alternata IgE Qn (S) <0.35 <0.35 QG-CRXW-Jxmq ialty [place] 2300 Work Phone: Comment on above: SEE IMMUNOCAP INTERP .IGE A. fumigatus IgE Qn (S) <0.35 <0.35 VR-NRFI-Lqgx ialty [place] 2300 Work Phone: Comment on above: SEE IMMUNOCAP INTERP .IGE [place] house dust mite IgE Qn (S) <0.35 <0.35 SC-YYEC-Rmdx iaUltimate Softwarey [place] 2300 Work Phone: Comment on above: SEE IMMUNOCAP INTERP .IGE [place] IgE Qn (S) <0.35 <0.35 GV-WCID-Crdl iaUltimate Softwarey [place] 2300 Work Phone: Comment on above: SEE IMMUNOCAP INTERP .IGE [place] grass IgE Qn (S) <0.35 <0.35 VJ-FNOU-Nwpk Mob[employer] [place] 2300 Work Phone: Comment on above: SEE IMMUNOCAP INTERP .IGE Boxelder IgE Qn (S) <0.35 <0.35 MP-WS PC-Spec [employer] [place] 2300 Work Phone: Comment on above: SEE IMMUNOCAP INTERP .IGE C. herbarum IgE Qn (S) <0.35 <0.35 IC-CLPN-Fsqt ialty [place] 2300 Work Phone: Comment on above: SEE IMMUNOCAP INTERP .IGE [place] IgE Qn (S) <0.35 <0.35 EX-EJPX-Bgpc ialty [place] 2300 Work Phone: Comment on above: SEE IMMUNOCAP INTERP .IGE Cat dander IgE Qn (S) <0.35 <0.35 MP- WSPC-Spec [employer] Work Phone: Comment on above: SEE IMMUNOCAP INTERP .IGE Cockroach IgE Qn (S) <0.35 <0.35 MP-W SPC-Spec [employer] Work Phone: Comment on above: SEE IMMUNOCAP INTERP .IGE Common Pigweed IgE Qn (S) <0.35 <0.35 MU-VDAK-Vfyi [employer] Work Phone: Comment on above: SEE IMMUNOCAP INTERP .IGE [place] IgE Qn (S) <0.35 <0.35 MP- WSPC-Spec [employer] Work Phone: [phone] Comment on above: SEE IMMUNOCAP INTERP .IGE Cow dander IgE Qn (S) <0.10 MP- WSPC-Spec [employer] Work Phone: [phone] Cow dander IgE RAST class (S) 0 JG-MNJK-Edtb [employer] Work Phone: Comment on above: INTERPRETATION SPECI FIC LEVEL OF ALLERGEN IGE CLASS kU/L SPECIFIC IGE ANTIBODY -------- --------- 0 <0.10 ABSENT/UNDETECTABLE 0/1 0.10-0.34 VERY LOW LEVEL 1 0.35-0.69 LOW LEVEL 2 0.70-3.49 MODERATE LEVEL 3 3.50-17.4 HIGH LEVEL 4 17.5-49.9 VERY HIGH LEVEL 5 50-100 VERY HIGH LEVEL 6 >100 VERY HIGH LEVEL.The clinical relevance of allergen results of 0.10-0.34 kU/L areundetermined and intended for specialist use. Dog dander IgE Qn (S) <0.35 <0.35 MP- WSPC-Spec [employer] Work Phone: Comment on above: SEE IMMUNOCAP INTERP .IGE Taj[place] plantain IgE Qn (S) <0.35 <0.35 PH-MFCL-Dion ialty [place] 2300 Work Phone: Comment on above: SEE IMMUNOCAP INTERP .IGE house dust mite IgE Qn (S) <0.35 <0.35 RG-SHQN-Ztfw ialty [place] 2300 Work Phone: Comment on above: SEE IMMUNOCAP INTERP .IGE [place] IgE Qn (S) <0.35 <0.35 MP-W SPC-Spec ialty [place] 2300 Work Phone: Comment on above: SEE IMMUNOCAP INTERP .IGE Honey bee IgE Qn (S) <0.35 <0.35 MP-W SPC-Spec ialty [place] 2300 Work Phone: Comment on above: SEE IMMUNOCAP INTERP .IGE Calin grass IgE Qn (S) <0.35 <0.35 UJ-FYSZ-Yfqm ialty [place] 2300 Work Phone: Comment on above: SEE IMMUNOCAP INTERP .IGE [place] blue grass IgE Qn (S) <0.35 <0.35 CZ-BITZ-Tppy ialty [place] 2300 Work Phone: Comment on above: SEE IMMUNOCAP INTERP .IGE Mountain Juniper IgE Qn (S) <0.35 <0.35 MU-AYEL-Dqyg ialty [place] 2300 Work Phone: Comment on above: SEE IMMUNOCAP INTERP .IGE P. notatum IgE Qn (S) <0.35 <0.35 MP- WSPC-Spec ialty [place] 2300 Work Phone: Comment on above: SEE IMMUNOCAP INTERP .IGE Paper wasp IgE Qn (S) <0.35 <0.35 MP- WSPC-Spec ialty [place] 2300 Work Phone: Comment on above: SEE IMMUNOCAP INTERP .IGE Pecan or [place] IgE Qn (S) <0.35 <0.35 PR-HGXJ-Idab ialty [place] 2300 Work Phone: Comment on above: SEE IMMUNOCAP INTERP .IGE Saltwort IgE Qn (S) <0.35 <0.35 MP-WS PC-Spec ialty [place] 2300 Work Phone: Comment on above: SEE IMMUNOCAP INTERP .IGE Sheep [place] IgE Qn (S) <0.35 <0.35 WA-BEHJ-Mosp ialty [place] 2300 Work Phone: Comment on above: SEE IMMUNOCAP INTERP .IGE Silver Birch IgE Qn (S) <0.35 <0.35 CD-FJVM-Mwfl [employer] 2300 Work Phone: Comment on above: SEE IMMUNOCAP INTERP .IGE Jp IgG Qn (S) <0.35 <0.35 MP-WSP C-Spec [employer] Work Phone: Comment on above: SEE IMMUNOCAP INTERP .IGE Total IgE RAST Qn (S) 3.1 {KU/L} See Below MP- WSPC-Spec [employer] 2300 Work Phone: Comment on above: Reference Range: 0.0 - 214.0 Note: Omalizumab (Xolair, GenentNI; humanized IgG1 antihuman IgE Fc) treatment does not significantly interfere with the accuracy of total IgE on the ImmunoCAP ([employer]) platform. J Allergy Clin Immunol 2006;117:759-66). Allergens, parasitic diseases, smoking, and alcohol consumption have been reported to increase levels of total IgE in serum. White [place] IgE Qn (S) <0.35 <0.35 MP-W SPC-Spec [employer] 2300 Work Phone: Comment on above: SEE IMMUNOCAP INTERP .IGE [place] IgE Qn (S) <0.35 <0.35 MP-W SPC-Spec [employer] [place] 2300 Work Phone: Comment on above: SEE IMMUNOCAP INTERP .IGE White mulberry IgE Qn (S) <0.35 <0.35 NL-ZVXR-Hlnp [employer] 2300 Work Phone: Comment on above: SEE IMMUNOCAP INTERP .IGE [place] IgE Qn (S) <0.35 <0.35 MP-W SPC-Spec [employer] Work Phone: Comment on above: SEE IMMUNOCAP INTERP .IGE Whitefaced Hornet IgE Qn (S) <0.35 <0.35 WB-TVMT-Yiwd [employer] Work Phone: Comment on above: SEE IMMUNOCAP INTERP .IGE Yellow Hornet IgE Qn (S) <0.35 <0.35 GW-GLKF-Wexf [employer] Work Phone: Comment on above: SEE IMMUNOCAP INTERP .IGE Yellow [place]et IgE Qn (S) <0.35 <0.35 DF-TFVJ-Myhu [employer] Work Phone: Comment on above: SEE IMMUNOCAP INTERP .IGE SEE COMMENT ZA-QMWV-Unfq [employer] Work Phone: Comment on above: REFERENCE RANGE (IMM UNOCAP) IGE KU/L CLASS INTERPRETATION < 0.35 0 BELOW DETECTION 0.35- 0.69 1 LOW POSITIVE 0.70- 3.49 2 MODERATE POSITIVE 3.50- 17.49 3 HIGH MJGIGOIE65.50- 49 4 VERY HIGH VRTWFEGA30 - 99 5 VERY HIGH POSITIVE >100 6 VERY HIGH POSITIVE <0.35 <0.35 XH-NAXC-Uubu [employer] Work Phone: Comment on above: SEE IMMUNOCAP INTERP .IGE Tryptase, Serumon 05-01-2020 Tryptase [Mass/Vol] 7.5 {mcg/L} <11.0 MP-W SPC-Spec [employer] Work Phone: Comment on above: The Tryptase test, f luorescent enzyme immunoassay(FEIA), measures both the Alpha and Beta forms ofTryptase. Measuring both forms of Tryptase increasessensitivity for the diagnosis of mastocytosis, andmast cell degranulation as a cause of anaphylaxis. AUTO DIFFon 04-05-2020 Basophils (Bld) [#/Vol] 0.05 x1000 Normal 0.00-0.20 [facility] Comment on above: Performed By: #### 1 01074, 086315, [id number] #### [facility] [address] [place] [address] 05776 Legal Billing Specialist: Doni Hickey MD Basos % 0.3 % Normal [facility] Comment on above: Performed By: #### 1 97541, 674486, [id number] #### [facility] [address] [place] [address] 22611 Legal Billing Specialist: Doni Hickey MD Eos Count 0.16 x1000 Normal 0.00-0.50 [facility] Comment on above: Performed By: #### 1 87652, 753438, [id number] #### [facility] [address] [place], [place] [address] Legal Billing Specialist: Doni Hickey MD Eosinophils/100 WBC (Bld) 0.8 % Normal [facility] Comment on above: Performed By: #### 1 94219, 599927, [id number] #### [facility] [address] [place], [place] [address] Legal Billing Specialist: Doni Hickey MD Lymphocytes (Bld) [#/Vol] 1.30 x1000 Normal 1.20-4.80 [facility] Comment on above: Performed By: #### 1 93954, 584157, [id number] #### [facility] [address] [place] [address] 31230 Legal Billing Specialist: Doni Hickey MD Lymphocytes/100 WBC (Bld) 6.7 % Normal [facility] Comment on above: Performed By: #### 1 13134, 813735, [id number] #### [facility] [address] [place] [address] 47937 Legal Billing Specialist: Doni Hickey MD Smyth Count 0.79 x1000 Normal 0.10-1.00 [facility] Comment on above: Performed By: #### 1 94326, 852483, [id number] #### [facility] [address] [place] [address] 99751 Legal Billing Specialist: Doni Hickey MD Monocytes/100 WBC (Bld) 4.0 % Normal [facility] Comment on above: Performed By: #### 1 86632, 764383, [id number] #### [facility] [address] [place] [address] 64030 Legal Billing Specialist: Doni Hickey MD Neutrophils (Bld) [#/Vol] 17.23 x1000 High 1.40-8.80 [facility] Comment on above: Performed By: #### 1 17008, 192838, [id number] #### [facility] [address] [place] [address] 19145 Legal Billing Specialist: Doni Hickey MD Neutrophils/100 WBC (Bld) 88.2 % Normal [facility] Comment on above: Performed By: #### 1 75902, 931288, [id number] #### [facility] [address] [place] [address] 56744 Legal Billing Specialist: Doni Hickey MD Scan Differential Diff Scd Normal [facility] Comment on above: Result Comment: Slid e reviewed by technologist. Performed By: #### 1 76505, 651543, [id number] #### [facility] [address] [place] [address] 48345 Legal Billing Specialist: Doni Hickey MD COMPMETAon 04-05-2020 GFR/1.73 sq M predicted among non-blacks MDRD (S/P/Bld) [Vol rate/Area] 81 mL/min/{1.73_m2} [facility] Comment on above: Result Comment: The GFR is calculated and is Age, Sex, and Race adjusted. Performed By: #### 1 94272, 180743, [id number] #### [facility] [address] [place] [address] 70668 Legal Billing Specialist: Doni Hickey MD Albumin [Mass/Vol] 3.9 g/dL Normal 3.4-5.0 [facility] Comment on above: Performed By: #### 1 00484, 959594, [id number] #### [facility] [address] [place] [address] 68197 Legal Billing Specialist: Doni Hickey MD Albumin/Globulin [Mass ratio] 1.0 {ratio} Normal [facility] Comment on above: Performed By: #### 1 52073, 929412, [id number] #### [facility] [address] [place], [place] [address] Legal Billing Specialist: Doni Hickey MD Alk Phos 68 unit/L Normal 45-117 [facility] Comment on above: Performed By: #### 1 20617, 695374, [id number] #### [facility] [address] [place], [place] [address] Legal Billing Specialist: Doni Hickey MD Bilirubin [Mass/Vol] 0.30 mg/dL Normal 0.20-1.00 [facility] Comment on above: Result Comment: Use of this assay is not recommended for patients undergoing treatment with eltrombopag due to the potential for falsely elevated results. Performed By: #### 1 00309, 297107, [id number] #### [facility] [address] [place], [place] [address] Legal Billing Specialist: Doni Hickey MD Calcium [Mass/Vol] 8.7 mg/dL Normal 8.5-10.5 [facility] Comment on above: Performed By: #### 1 46820, 550906, [id number] #### [facility] [address] [place] [address] 56335 Legal Billing Specialist: Doni Hickey MD Chloride [Moles/Vol] 103 mmol/L Normal 100-109 [facility] Comment on above: Performed By: #### 1 79826, 008266, [id number] #### [facility] [address] [place] [address] Legal Billing Specialist: Doni Hickey MD CO2, venous 23.5 mmol/L Normal 21.0-32.0 [facility] Comment on above: Performed By: #### 1 46201, 422141, 1800647 #### [facility] [address] [place] [address] 61223 Legal Billing Specialist: Doni Hickey MD Creatinine [Mass/Vol] 0.8 mg/dL Normal 0.6-1.0 [facility] Comment on above: Performed By: #### 1 73641, 056397, [id number] #### [facility] [address] [place] [address] 84705 Legal Billing Specialist: Doni Hickey MD Globulin (S) [Mass/Vol] 3.8 g/dL Normal [facility] Comment on above: Performed By: #### 1 81668, 672554, [id number] #### [facility] [address] [place], [place] [address] Legal Billing Specialist: Doni Hickey MD Glucose [Mass/Vol] 138 mg/dL High 72-100 [facility] Comment on above: Result Comment: Radha puncture should occur prior to sulfasalazine administration due to the potential for falsely depressed results. Venipuncture should occur prior to sulfapyridine administration due to the potential falsely elevated results. Baseline assay values before administration of sulfasalazine and sulfapyridine therapy would not be affected. Performed By: #### 1 70513, 725439, [id number] #### [facility] [address] [place], [place] [address] Legal Billing Specialist: Doni Hickey MD GOT 11 unit/L Low 15-37 [facility] Comment on above: Result Comment: Radha puncture should occur prior to sulfasalazine administration due to the potential for falsely depressed results. Baseline assay values before administration of sulfasalazine and sulfapyridine therapy would not be affected. Performed By: #### 1 18147, 381064, [id number] #### [facility] [address] [place] [address] Legal Billing Specialist: Doni Hickey MD GPT 20 unit/L Normal 14-59 [facility] Comment on above: Result Comment: Radha puncture should occur prior to sulfasalazine administration due to the potential for falsely depressed results. Baseline assay values before administration of sulfasalazine and sulfapyridine therapy would not be affected. Performed By: #### 1 48294, 665440, [id number] #### [facility] [address] [place] [address] 53758 Legal Billing Specialist: Doni Hickey MD Osmolality [Osmolality] 279 mOsm/kg Normal 275-295 [facility] Comment on above: Performed By: #### 1 00921, 802938, [id number] #### [facility] [address] [place] [address] 69077 Legal Billing Specialist: Doni Hickey MD Potassium [Moles/Vol] 3.1 mmol/L Low 3.5-5.1 [facility] Comment on above: Performed By: #### 1 66723, 549862, [id number] #### [facility] [address] [place] [address] 57805 Legal Billing Specialist: Doni Hickey MD Protein [Mass/Vol] 7.7 g/dL Normal 6.0-8.5 [facility] Comment on above: Performed By: #### 1 43811, 197479, [id number] #### [facility] [address] [place] [address] 55901 Legal Billing Specialist: Doni Hickey MD Sodium [Moles/Vol] 139 mmol/L Normal 135-145 [facility] Comment on above: Performed By: #### 1 38467, 001847, [id number] #### [facility] [address] [place] [address] 72213 Legal Billing Specialist: Doni Hickey MD Urea nitrogen [Mass/Vol] 10 mg/dL Normal 10-20 [facility] Comment on above: Performed By: #### 1 76799, 907334, [id number] #### [facility] [address] [place] [address] Legal Billing Specialist: Doni Hickey MD Urea nitrogen/Creatinine [Mass ratio] 12.5 mg/mg Normal [facility] Comment on above: Performed By: #### 1 [id number] #### [facility] [address] [place] [address] Legal Billing Specialist: Doni Hickey MD ED Physician Reporton 2019 ED Physician Report Patient: ZULY BHATIA Age: 34 years Sex: Female : 1985 Associated Diagnoses: Allergic reaction Author: LIANE EL DO Basic Information Addendum: Assumed care from: LIVIA MARIE MD. Reexamination/ Reevaluation pt was feeling much better. her K+ was replaced here. she had no SOB, swelling or complaints. she was ready to go home. she has an appt set up with an market risk specialist on Apr 23. Return to ED if anything worsens or changes that concerns you. Follow up with your doctor. Take your home medications as directed. Pt is understanding and comfortable w plan for home. will send home w epi pen rx and a steroid script if needed. she is going out of town soon and I wrote the steroids in case she has another bad reaction Impression and Plan Diagnosis Allergic reaction ([id number] T78.40XA, Working, Medical) Plan Condition: Improved, Stable. Disposition: Discharged: to home. Prescriptions: Launch Meds List (Selected) Inpatient Medications Ordered potassium chloride 20 mEq oral tablet, ER = K-Dur: 40 mEq = 2 tabs, ORAL, ONCE Prescriptions Prescribed EpiPen 2-Igor 0.3 mg injectable kit: 0.3 mg, IM, ONCE, 1 EA, 0 Refill(s) predniSONE 10 mg oral tablet: See Instructions, 50mg daily x 2 days, 40mg daily x 2 days, 30mg daily x 2 days, 20mg daily x 2 days, then 10mg daily x 2 days, 30 tabs, 0 Refill(s) Documented Medications Documented Adderall: ORAL, BID, 0 Refill(s) omeprazole: ORAL, DAILY, 0 Refill(s). Counseled: Patient, Regarding diagnosis, Regarding diagnostic results, Regarding treatment plan, Regarding prescription, Patient indicated understanding of instructions. Normal [facility] ED Physician Report Patient: ZULY BHATIA Age: 34 years Sex: Female : 1985 Associated Diagnoses: Allergic reaction Author: LIVIA MARIE MD Basic Information Time seen: Date & time 04/05/2020 14:19:00. History source: Patient. Arrival mode: Private vehicle. History of Present Illness The patient presents with allergic reaction, skin rash, hives and throat swelling. The onset was 5 days ago. The course/duration of symptoms is She was seen in [place] for the same about 4 days ago. Today she was following up with the clerk entry level due to the rash and was sent back down here for evaluation and treatment. They are unclear what she is allergic to. Location: Diffuse throat. The character of symptoms is rash, redness, itching and swelling. The degree at onset was moderate. The degree at present is moderate. Potential allergen(s) are unknown, It is unclear what has caused this. No new soaps no new detergents no new foods no insect bites that she is aware of. Risk factors consist of previous anaphylaxis, not immunocompromised patient, not asthma, not recent antibiotic use, not recent medication change, not food allergies and not seasonal allergies. Prior episodes: rare. Associated symptoms: dyspnea, swelling, difficulty swallowing, denies wheezing, denies chest pain, denies nausea and denies vomiting. Review of Systems Constitutional symptoms: Negative except as documented in HPI. Skin symptoms: Negative except as documented in HPI. Eye symptoms: Negative except as documented in HPI. ENMT symptoms: Negative except as documented in HPI. Respiratory symptoms: Negative except as documented in HPI. Cardiovascular symptoms: Negative except as documented in HPI. Gastrointestinal symptoms: Negative except as documented in HPI. Genitourinary symptoms: Negative except as documented in HPI. Musculoskeletal symptoms: Negative except as documented in HPI. Psychiatric symptoms: Negative except as documented in HPI. Endocrine symptoms: Negative except as documented in HPI. Hematologic/Lymphatic symptoms: Negative except as documented in HPI. Allergy/immunologic symptoms: Negative except as documented in HPI. Neurologic symptoms Negative except as documented in HPI. Additional review of systems information: All other systems reviewed and otherwise negative. Health Status Allergies: No active allergies have been recorded.. Medications: Per nurse's notes. Immunizations: Up to date. Menstrual history: Per nurse's notes. Past Medical/ Family/ Social History Medical history: No active or resolved past medical history items have been selected or recorded.. Surgical history: No active procedure history items have been selected or recorded.. Family history: No family history items have been selected or recorded.. Social history: Alcohol use: Denies, Tobacco use: Denies, Drug use: Denies, Occupation: Employed, Family/social situation: Unmarried. Problem list: No qualifying data available . Physical Examination General: Alert, mild distress, anxious. Vital Signs Skin: Warm, dry, Generalized redness face neck chest bilateral upper legs. Head: Normocephalic, atraumatic. Neck: Supple, trachea midline. Eye: Normal conjunctiva, vision unchanged. Ears, nose, mouth and throat: Tympanic membranes clear, oral mucosa moist, Uvula is slightly edematous, no swelling of her tongue airway is open is handling her secretions well.. Cardiovascular: Regular rate and rhythm, No murmur, Normal peripheral perfusion, No edema. Respiratory: Lungs are clear to auscultation, respirations are non-labored, breath sounds are equal, Symmetrical chest wall expansion. Gastrointestinal: Soft, Nontender, Non distended. Back: Normal range of motion, Normal alignment. Musculoskeletal: Normal ROM, normal strength. Psychiatric: Cooperative, appropriate mood & affect, normal judgment. Neurological Alert and oriented to person, place, time, and situation, No focal neurological deficit observed, CN II-XII intact, normal sensory observed, normal motor observed, normal speech observed, normal coordination observed. Medical Decision Making Differential Diagnosis: Allergic reaction, anaphylaxis, angioedema. Rationale: Patient was given epinephrine Solu-Medrol Pepcid and Benadryl. She is feeling better she will need reevaluation and final disposition by Dr. El.. Impression and Plan Diagnosis Allergic reaction ([id number] T78.40XA, Working, Medical) Plan Disposition: Patient care transitioned to: Time: 04/05/2020 15:00:00, LIANE EL DO. Normal [facility] ED Progress Noteon 0 ED Progress Note 1425 Patient arrives ambulatory from her clerk entry level office upstairs. Was seen in [place] at an ER 3 days ago for an allergic reaction. Today she had a follow up appt and her symptoms had worsened, so the MD sent her to the ED here. Pt has redness to chest and face, feels SOB and tightness in her chest. Placed in room 3 and api product manager placed. IV line established and labs obtained. Dr Marie examines. 1450 Pt medicated as ordered. Will continue to observe and monitor. 1600 Pt feels much improved. Redness to skin has diminished and pt denies feeling SOB. Dr El in to discuss follow up plans. 1620 Pt stated that family will transport home. She feels well enough to leave. VSS. RX x 2 given. Steady ambulation. Normal [facility] HEMOon 04-05-2020 DIFF? No [facility] Comment on above: Performed By: #### 1 [id number] #### [facility] [address] [place] [address] [id number] Legal Billing Specialist: Doni Hickey MD Erythrocyte distribution width (RBC) [Ratio] 14.2 % Normal 11.5-14.5 [facility] Comment on above: Performed By: #### 1 [id number], [id number] #### [facility] [address] [place] [address] Legal Billing Specialist: Doni Hickey MD Hematocrit (Bld) [Volume fraction] 43.0 % Normal 36.0-46.0 [facility] Comment on above: Performed By: #### 1 [id number], [id number] #### [facility] [address] [place] [address] Legal Billing Specialist: Doni Hickey MD Hemoglobin (Bld) [Mass/Vol] 14.3 g/dL Normal 12.0-16.0 [facility] Comment on above: Performed By: #### 1 [id number], [id number], [id number] #### [facility] [address] [place] [address] Legal Billing Specialist: Doni Hickey MD MCH (RBC) [Entitic mass] 29.4 pg Normal 27.0-34.0 [facility] Comment on above: Performed By: #### 1 [id number], [id number] #### [facility] [address] [place] [address] Legal Billing Specialist: Doni Hickey MD MCHC (RBC) [Mass/Vol] 33.3 g/dL Normal 32.0-37.0 [facility] Comment on above: Performed By: #### 1 [id number], [id number] #### [facility] [address] [place] [address] Legal Billing Specialist: Doni Hickey MD MCV (RBC) [Entitic vol] 88.3 fL Normal 80.0-100.0 [facility] Comment on above: Performed By: #### 1 [id number], [id number], [id number] #### [facility] [address] [place] [address] Legal Billing Specialist: Doni Hickey MD Platelet mean volume (Bld) [Entitic vol] 8.0 fL Normal 7.4-10.4 [facility] Comment on above: Performed By: #### 1 [id number], [id number], [id number] #### [facility] [address] [place] [address] Legal Billing Specialist: Doni Hickey MD Platelets (Bld) [#/Vol] 358 x1000 Normal 150-450 [facility] Comment on above: Performed By: #### 1 35531, [id number], [id number] #### [facility] [address] [place] [address] Legal Billing Specialist: Doni Hickey MD RBC (Bld) [#/Vol] 4.87 x10 Normal 4.20-5.40 [facility] Comment on above: Result Comment: Note : RBC morphology is normal unless otherwise stated. Evaluation performed only if differential is requested. Performed By: #### 1 [id number], [id number], [id number] #### [facility] [address] [place] [address] Legal Billing Specialist: Doni Hickey MD WBC (Bld) [#/Vol] 19.5 10*3/uL Normal [facility] Comment on above: Performed By: #### 1 [id number], [id number], [id number] #### [facility] [address] [place] [address] Legal Billing Specialist: Doni Hickey MD WBC (Bld) [#/Vol] 19.5 x10 High 4.5-11.0 [facility] Comment on above: Performed By: #### 1 06008, [id number], [id number] #### [facility] [address] [place], [place] [id number] Legal Billing Specialist: Doni Hickey MD XR Ankle 3+ Views Lefton XR Ankle 3+ Views Left Exam Date/Time: 04/29/2019 21:55 EDT Reason for Exam: Injury Report STUDY: XR Ankle 3+ Views Left;; 04/29/2019 9:55 pm INDICATION: Injury. Tripped over rock. twisted ankle. lat aspect swelling and bruising COMPARISON: None. ACCESSION NUMBER(S): [id number] ORDERING CLINICIAN: Leah Valerio FINDINGS: Three views of the left ankle. There is no acute fracture or dislocation. The ankle mortise is maintained. Mild soft tissue swelling is noted at the lateral ankle. IMPRESSION: Mild soft tissue swelling at the lateral left ankle with no radiographic evidence for acute fracture. FINAL REPORT Dictated: 04/29/2019 10:27 pm Rossana Snider DO Signed (Electronic Signature): 04/29/2019 10:27 pm Signed by: Rossana Snider DO Technologist: RINA Amato [facility] Vital Signs Date Time Vital Sign Value Performing Clinician Facility 08-02-2024 13:14-0500 Diastolic blood pressure 82 mm[Hg] Carolyn Keri 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-LMFT Work Phone: 1(237)534-525566 [address] 08-02-2024 13:14-0500 Systolic blood pressure 143 mm[Hg] Carolynchristel Saavedra 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-LMFT Work Phone: 4(520)580-921230 [place] [address] 08-02-2024 12:53-0500 Body height 165.1 cm Carolyn Saavedra APRN-LMFT Work Phone: 9(535)966-217130 [place] [address] 08-02-2024 12:53-0500 Body mass index (BMI) [Ratio] 33.28 kg/m2 Carolynchristel Saavedra APRN-LMFT Work Phone: 7(624)043-867030 [place] [address] 08-02-2024 12:53-0500 Body temperature 98.01 [degF] Carolyn Keri 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-LMFT Work Phone: 2(267)688-729130 [place] [address] 08-02-2024 12:53-0500 Body weight 90.72 kg Carolynchristel Saavedra APRN-LMFT Work Phone: 4(030)202-452466 [address] 08-02-2024 12:53-0500 Heart rate 94 /min Carolynchristel Saavedra APRN-LMFT Work Phone: 6(309)419-525630 [place] [address] 08-02-2024 12:53-0500 Respiratory rate 16 /min Carolyn Keri 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-LMFT Work Phone: 4(263)375-015130 [place] [address] 08-02-2024 12:53-0500 SaO2% (BldA) [Mass fraction] 97 % Carolynchristel Saavedra APRN-LMFT Work Phone: 0(709)929-340666 [address] 07-06-2024 12:51-0500 Body height 167.6 cm Molly Cohen DO Work Phone: [facility] 07-06-2024 12:51-0500 Body mass index (BMI) [Ratio] 34.09 kg/m2 Molly Cohen DO Work Phone: 5(321)662-014033 [place] [address] 07-06-2024 12:51-0500 Body temperature 98.01 [degF] Molly Cohen DO Work Phone: 3(448)156-590080 [place] [address] 07-06-2024 12:51-0500 Body weight 95.8 kg Molly Cohen DO Work Phone: 6(680)354-073980 [place] [address] 07-06-2024 12:51-0500 Diastolic blood pressure 80 mm[Hg] Molly Cohen DO Work Phone: 1(001)720-224980 [place] [address] 07-06-2024 12:51-0500 Heart rate 94 /min Molly Cohen DO Work Phone: 0(957)177-388780 [place] [address] 07-06-2024 12:51-0500 SaO2% (BldA) [Mass fraction] 95 % Molly Cohen DO Work Phone: 6(974)751-397180 [place] [address] 07-06-2024 12:51-0500 Systolic blood pressure 122 mm[Hg] Molly Cohen DO Work Phone: 6(752)063-889680 [place] [address] 10-02-2023 16:07-0500 Body height 167.6 cm Molly Cohen DO Work Phone: 5(205)523-656380 [place] [address] 10-02-2023 16:07-0500 Body mass index (BMI) [Ratio] 27.34 kg/m2 Molly Cohen DO Work Phone: 5(579)447-971980 [place] [address] 10-02-2023 16:07-0500 Body weight 76.84 kg Molly Cohen DO Work Phone: 8(726)035-648280 [place] [address] 10-02-2023 16:07-0500 Diastolic blood pressure 88 mm[Hg] Molly Cohen DO Work Phone: 7(734)919-081880 [place] [address] 10-02-2023 16:07-0500 Heart rate 68 /min Molly Cohen DO Work Phone: 5(346)774-535580 [place] [address] 10-02-2023 16:07-0500 Systolic blood pressure 120 mm[Hg] Molly Cohen DO Work Phone: [facility] 06-10-2023 12:25-0500 Diastolic blood pressure 88 mm[Hg] Faviola Kelley MD Work Phone: [facility] 06-10-2023 12:25-0500 Heart rate 81 /min Faviola Kelley MD Work Phone: [facility] 06-10-2023 12:25-0500 Respiratory rate 16 /min Faviola Kelley MD Work Phone: [facility] 06-10-2023 12:25-0500 SaO2% (BldA) [Mass fraction] 98 % Faviola Kelley MD Work Phone: [facility] 06-10-2023 12:25-0500 Systolic blood pressure 119 mm[Hg] Faviola Kelley MD Work Phone: [facility] 06-10-2023 11:28-0500 Body temperature 97.9 [degF] Faviola Kelley MD Work Phone: [facility] 06-10-2023 09:23-0500 Body height 167.6 cm Faviola Kelley MD Work Phone: [facility] 06-10-2023 09:23-0500 Body mass index (BMI) [Ratio] 24.52 kg/m2 Faviola Kelley MD Work Phone: [facility] 06-10-2023 09:23-0500 Body weight 68.9 kg Faviola Kelley MD Work Phone: [facility] 06-04-2023 08:21-0400 Body height 165.1 cm Molly Cohen DO Work Phone: [facility] 06-04-2023 08:21-0400 Body mass index (BMI) [Ratio] 25.69 kg/m2 Molly Cohen DO Work Phone: [facility] 06-04-2023 08:21-0400 Body weight 70.03 kg Molly Cohen DO Work Phone: [facility] 06-04-2023 08:21-0400 Diastolic blood pressure 82 mm[Hg] Molly Cohen DO Work Phone: [facility] 06-04-2023 08:21-0400 Heart rate 80 /min Molly Cohen DO Work Phone: [facility] 06-04-2023 08:21-0400 Systolic blood pressure 118 mm[Hg] Molly Cohen DO Work Phone: [facility] 05-13-2023 12:10-0400 Diastolic blood pressure 71 mm[Hg] Faviola Kelley MD Work Phone: [facility] 05-13-2023 12:10-0400 Heart rate 72 /min Faviola Kelley MD Work Phone: 0(921)137-771706 [address] [place] [address] 05-13-2023 12:10-0400 Respiratory rate 18 /min Faviola Kelley MD Work Phone: 2(477)247-790406 [address] [place] [address] 05-13-2023 12:10-0400 SaO2% (BldA) [Mass fraction] 100 % Faviola Kelley MD Work Phone: [facility] 05-13-2023 12:10-0400 Systolic blood pressure 120 mm[Hg] Faviola Kelley MD Work Phone: [facility] 05-13-2023 11:25-0400 Body temperature 97.39 [degF] Faviola Kelley MD Work Phone: [facility] 05-13-2023 08:090400 Body height 165 cm Faviola Kelley MD Work Phone: 0(629)[phone] [address] [place] [address] 05-13-2023 08:09-0400 Body mass index (BMI) [Ratio] 26.23 kg/m2 Faviola Kelley MD Work Phone: [facility] 05-13-2023 08:09-0400 Body weight 71.4 kg Faviola Kelley MD Work Phone: [facility] 05-01-2023 11:00-0400 Diastolic blood pressure 86 mm[Hg] [facility] 05-01-2023 11:00-0400 Heart rate 73 /min Text [facility] 05-01-2023 11:00-0400 Respiratory rate 16 /min Text [facility] 05-01-2023 11:00-0400 SaO2% (BldA) [Mass fraction] 99 % Text [facility] 05-01-2023 11:00-0400 Systolic blood pressure 112 mm[Hg] Text [facility] 05-01-2023 08:08-0400 Body height 165.1 cm Text Entry [facility] 05-01-2023 08:08-0400 Body temperature 98.42 [degF] Text [facility] 05-01-2023 08:08-0400 Body weight 65 kg Text Entry [facility] 12-17-2022 08:50-0400 Diastolic blood pressure 78 mm[Hg] Andreina Boley DPM Work Phone: [facility] 12-17-2022 08:50-0400 Heart rate 76 /min Andreina Boley DPM Work Phone: [facility] 12-17-2022 08:50-0400 Systolic blood pressure 126 mm[Hg] Andreina Boley DPM Work Phone: [facility] 12-17-2022 08:45-0400 Body temperature 98.49 [degF] Andreina Boley DPM Work Phone: [facility] 11-26-2022 16:53-0400 Body height 165.1 cm Molly Cohen DO Work Phone: [facility] 11-26-2022 16:53-0400 Body mass index (BMI) [Ratio] 25.26 kg/m2 Molly Cohen DO Work Phone: [facility] 11-26-2022 16:53-0400 Body weight 68.86 kg Molly Cohen DO Work Phone: [facility] 11-26-2022 16:53-0400 Diastolic blood pressure 74 mm[Hg] Molly Cohen DO Work Phone: [facility] 11-26-2022 16:53-0400 Heart rate 64 /min Molly Cohen DO Work Phone: [facility] 11-26-2022 16:53-0400 Systolic blood pressure 112 mm[Hg] Molly Cohen DO Work Phone: [facility] 03-27-2022 16:21-0400 Body height 165.1 cm Molly A Cohen Work Phone: [facility] 205 DO Work Phone: 03-27-2022 16:21-0400 Body mass index (BMI) [Ratio] 25.63 kg/m2 Molly A Cohen Work Phone: [facility] 205 DO Work Phone: 03-27-2022 16:21-0400 Body surface area Derived from formula 1.77 m2 Molly A Cohen Work Phone: [facility] 205 DO Work Phone: 03-27-2022 16:21-0400 Body weight 69.85 kg Molly A Cohen Work Phone: [facility] 205 DO Work Phone: 03-27-2022 16:21-0400 Diastolic blood pressure 80 mm[Hg] Molly A Cohen Work Phone: [facility] 205 DO Work Phone: 03-27-2022 16:21-0400 Heart rate 80 /min Molly A Cohen Work Phone: [facility] 205 DO Work Phone: 03-27-2022 16:21-0400 Systolic blood pressure 120 mm[Hg] Molly Miles [place] Work Phone: [facility] 205 DO Work Phone: 03-02-2022 05:40-0400 Diastolic blood pressure 92 mm[Hg] Text Entry [facility] 03-02-2022 05:40-0400 Heart rate 74 /min Text Entry [facility] 03-02-2022 05:40-0400 Respiratory rate 18 /min Text Entry [facility] 03-02-2022 05:40-0400 SaO2% (BldA) [Mass fraction] 99 % Text [facility] 03-02-2022 05:40-0400 Systolic blood pressure 124 mm[Hg] Text [facility] 03-02-2022 03:37-0400 Body height 165.1 cm Text Entry [facility] 03-02-2022 03:37-0400 Body temperature 97.16 [degF] Text Entry [facility] 03-02-2022 03:37-0400 Body weight 72.7 kg Text Entry [facility] 12-25-2021 08:02-0400 Body height 165.1 cm Molly Dunnee Work Phone: [facility] 205 DO Work Phone: 12-25-2021 08:02-0400 Body mass index (BMI) [Ratio] 26.46 kg/m2 Molly A Cohen Work Phone: [facility] 205 DO Work Phone: 12-25-2021 08:02-0400 Body surface area Derived from formula 1.79 m2 Molly A Cohen Work Phone: [facility] 205 DO Work Phone: 12-25-2021 08:02-0400 Body weight 72.12 kg Molly A Cohen Work Phone: [facility] 205 DO Work Phone: 12-25-2021 08:02-0400 Diastolic blood pressure 68 mm[Hg] Molly A Cohen Work Phone: [facility] 205 DO Work Phone: 12-25-2021 08:02-0400 Heart rate 80 /min Molly A Cohen Work Phone: [facility] 205 DO Work Phone: 12-25-2021 08:02-0400 Systolic blood pressure 120 mm[Hg] Molly A Cohen Work Phone: [facility] 205 DO Work Phone: 09-25-2021 07:58-0500 Body height 165.1 cm Molly A Cohen Work Phone: [facility] 205 DO Work Phone: 09-25-2021 07:58-0500 Body mass index (BMI) [Ratio] 27.71 kg/m2 Molly A Cohen Work Phone: [facility] 205 DO Work Phone: 09-25-2021 07:58-0500 Body surface area Derived from formula 1.83 m2 Molly A Cohen Work Phone: [facility] 205 DO Work Phone: 09-25-2021 07:58-0500 Body temperature 97.5 [degF] Molly A Cohen Work Phone: [facility] 205 DO Work Phone: 09-25-2021 07:58-0500 Body weight 75.52 kg Molly A Cohen Work Phone: [facility] 205 DO Work Phone: 09-25-2021 07:58-0500 Diastolic blood pressure 80 mm[Hg] Molly A Cohen Work Phone: [facility] 205 DO Work Phone: 09-25-2021 07:58-0500 Heart rate 80 /min Molly A Cohen Work Phone: [facility] 205 DO Work Phone: 09-25-2021 07:58-0500 Systolic blood pressure 124 mm[Hg] Molly A Cohen Work Phone: [facility] 205 DO Work Phone: 09-03-2021 14:51-0500 Body height 165.1 cm Molly A Cohen Work Phone: [facility] 205 DO Work Phone: 09-03-2021 14:51-0500 Body mass index (BMI) [Ratio] 28.14 kg/m2 Molly A Cohen Work Phone: [facility] 205 DO Work Phone: 09-03-2021 14:51-0500 Body surface area Derived from formula 1.84 m2 Molly A Cohen Work Phone: [facility] 205 DO Work Phone: 09-03-2021 14:51-0500 Body temperature 97.6 [degF] Molly A Cohen Work Phone: [facility] 205 DO Work Phone: 09-03-2021 14:51-0500 Body weight 76.71 kg Molly A Cohen Work Phone: [facility] 205 DO Work Phone: 09-03-2021 14:51-0500 Diastolic blood pressure 84 mm[Hg] Molly A Cohen Work Phone: [facility] 205 DO Work Phone: 09-03-2021 14:51-0500 Heart rate 81 /min Molly A Cohen Work Phone: [facility] 205 DO Work Phone: 09-03-2021 14:51-0500 Systolic blood pressure 120 mm[Hg] Molly A Cohen Work Phone: [facility] 205 DO Work Phone: 07-05-2021 13:59-0500 Body height 165.1 cm Molly A Cohen Work Phone: [facility] 205 DO Work Phone: 07-05-2021 13:59-0500 Body mass index (BMI) [Ratio] 28.54 kg/m2 Molly A Cohen Work Phone: [facility] 205 DO Work Phone: 07-05-2021 13:59-0500 Body surface area Derived from formula 1.85 m2 Molly A Cohen Work Phone: [facility] 205 DO Work Phone: 07-05-2021 13:59-0500 Body temperature 96.7 [degF] Molly A Cohen Work Phone: [facility] [facility] DO Work Phone: 07-05-2021 13:59-0500 Body weight 77.79 kg Molly A Cohen Work Phone: [facility] 205 DO Work Phone: 07-05-2021 13:59-0500 Diastolic blood pressure 84 mm[Hg] Molly A Cohen Work Phone: [facility] 205 DO Work Phone: 07-05-2021 13:59-0500 Heart rate 93 /min Molly A Cohen Work Phone: [facility] 205 DO Work Phone: 07-05-2021 13:59-0500 Systolic blood pressure 134 mm[Hg] Molly A Cohen Work Phone: [facility] 205 DO Work Phone: 06-28-2021 06:59-0500 Diastolic blood pressure 101 mm[Hg] Text Entry [facility] 06-28-2021 06:59-0500 Heart rate 89 /min Text Entry [facility] 06-28-2021 06:59-0500 Respiratory rate 18 /min Text Entry [facility] 06-28-2021 06:59-0500 SaO2% (BldA) [Mass fraction] 99 % Text Entry [facility] 06-28-2021 06:59-0500 Systolic blood pressure 163 mm[Hg] Text Entry [facility] 06-28-2021 06:19-0500 Body height 165.1 cm Text Entry [facility] 06-28-2021 06:19-0500 Body temperature 98.06 [degF] Text Entry [facility] 06-28-2021 06:19-0500 Body weight 78 kg Text Entry [facility] 06-27-2021 09:10-0500 Body height 165.1 cm Molly A Cohen Work Phone: [facility] 205 DO Work Phone: 06-27-2021 09:10-0500 Body mass index (BMI) [Ratio] 29.62 kg/m2 Molly A Cohen Work Phone: [facility] 205 DO Work Phone: 06-27-2021 09:10-0500 Body surface area Derived from formula 1.88 m2 Molly A Cohen Work Phone: [facility] 205 DO Work Phone: 06-27-2021 09:10-0500 Body temperature 97.5 [degF] Molly A Cohen Work Phone: [facility] 205 DO Work Phone: 06-27-2021 09:10-0500 Body weight 80.74 kg Molly A Cohen Work Phone: [facility] 205 DO Work Phone: 06-27-2021 09:10-0500 Diastolic blood pressure 78 mm[Hg] Molly A Cohen Work Phone: [facility] 205 DO Work Phone: 06-27-2021 09:10-0500 Heart rate 80 /min Molly A Cohen Work Phone: [facility] 205 DO Work Phone: 06-27-2021 09:10-0500 Systolic blood pressure 120 mm[Hg] Molly A Cohen Work Phone: [facility] 205 DO Work Phone: 06-22-2021 08:49-0500 Body mass index (BMI) [Ratio] 29.62 kg/m2 Molly A Cohen Work Phone: [facility]EJNY-Uqoups[facility] [place] [address]00 Work Phone: 06-22-2021 08:49-0500 Body surface area Derived from formula 1.88 m2 Molly A Cohen Work Phone: JK-STIV-Lhovrnqpr [place] [address]00 Work Phone: 06-22-2021 08:49-0500 Body temperature 98.3 [degF] Molly A Cohen Work Phone: VR-RVYB-Tnexnreuv [place] [address]00 Work Phone: 06-22-2021 08:49-0500 Body weight 80.74 kg Molly A Cohen Work Phone: ND-DMDA-Uqcdlyocj [place] [address] Work Phone: 06-22-2021 08:49-0500 Diastolic blood pressure 70 mm[Hg] Molly A Cohen Work Phone: EZ-NKJH-Ecoonuqvp [place] [address]00 Work Phone: 06-22-2021 08:49-0500 Heart rate 87 /min Molly A Cohen Work Phone: PF-MWRM-Mfpbddwcu [place] [address] Work Phone: 06-22-2021 08:49-0500 Respiratory rate 16 /min Molly A Cohen Work Phone: JX-VJTG-Vefrvlbor [place] [address]00 Work Phone: 06-22-2021 08:49-0500 SaO2% (BldA) [Mass fraction] 96 % Molly Dunnee Work Phone: KK-AHHP-Lpfvlzvcw [employer] [address] Work Phone: 06-22-2021 08:49-0500 Systolic blood pressure 116 mm[Hg] Molly Aquino Cohen Work Phone: TZ-AJIC-Oligcepdb [employer] [address] Work Phone: 06-07-2021 13:38-0400 Body height 165.1 cm Tirso Alex DPM Work Phone: [facility] 06-07-2021 13:38-0400 Body mass index (BMI) [Ratio] 29.12 kg/m2 Tirso Alex DPM Work Phone: [facility] 06-07-2021 13:38-0400 Body temperature 97 [degF] Tirso Alex DPM Work Phone: [facility] 06-07-2021 13:38-0400 Body weight 79.38 kg Tirsolewis RogersAlex DPM Work Phone: [facility] 06-07-2021 13:38-0400 Diastolic blood pressure 72 mm[Hg] Tirso Alex DPM Work Phone: [facility] 06-07-2021 13:38-0400 Heart rate 86 /min Tirso Alex DPM Work Phone: [facility] 06-07-2021 13:38-0400 Systolic blood pressure 111 mm[Hg] Tirso Alex DPM Work Phone: [facility] 06-04-2021 02:30-0400 Diastolic blood pressure 93 mm[Hg] Text Entry [facility] 06-04-2021 02:30-0400 Heart rate 82 /min Text Entry [facility] 06-04-2021 02:30-0400 Respiratory rate 18 /min Text Entry [facility] 06-04-2021 02:30-0400 SaO2% (BldA) [Mass fraction] 98 % Text Entry [facility] 06-04-2021 02:30-0400 Systolic blood pressure 129 mm[Hg] Text Entry [facility] 06-04-2021 02:05-0400 Body height 165.1 cm Text Entry [facility] 06-04-2021 02:05-0400 Body temperature 97.88 [degF] Text Entry [facility] 06-04-2021 02:05-0400 Body weight 79 kg Text Entry [facility] 05-29-2021 08:44-0400 Body height 165.1 cm Molly A Cohen Work Phone: [facility] 205 DO Work Phone: 05-29-2021 08:44-0400 Body mass index (BMI) [Ratio] 29.68 kg/m2 Molly A Cohen Work Phone: [facility] 205 DO Work Phone: 05-29-2021 08:44-0400 Body surface area Derived from formula 1.88 m2 Molly A Cohen Work Phone: [facility] 205 DO Work Phone: 05-29-2021 08:44-0400 Body temperature 96.9 [degF] Molly A Cohen Work Phone: [facility] 205 DO Work Phone: 05-29-2021 08:44-0400 Body weight 80.91 kg Molly A Cohen Work Phone: [facility] 205 DO Work Phone: 05-29-2021 08:44-0400 Diastolic blood pressure 80 mm[Hg] Molly A Cohen Work Phone: [facility] 205 DO Work Phone: 05-29-2021 08:44-0400 Heart rate 82 /min Molly A Cohen Work Phone: [facility] 205 DO Work Phone: 05-29-2021 08:44-0400 Systolic blood pressure 130 mm[Hg] Molly A Cohen Work Phone: [facility] 205 DO Work Phone: 05-03-2021 08:33-0400 Body height 165.1 cm Molly A Cohen Work Phone: [facility] 205 DO Work Phone: 05-03-2021 08:33-0400 Body mass index (BMI) [Ratio] 30.52 kg/m2 Molly A Cohen Work Phone: [facility] 205 DO Work Phone: 05-03-2021 08:33-0400 Body surface area Derived from formula 1.91 m2 Molly A Cohen Work Phone: [facility] 205 DO Work Phone: 05-03-2021 08:33-0400 Body temperature 96.9 [degF] Molly A Cohen Work Phone: [facility] 205 DO Work Phone: 05-03-2021 08:33-0400 Body weight 83.18 kg Molly A Cohen Work Phone: [facility] 205 DO Work Phone: 05-03-2021 08:33-0400 Diastolic blood pressure 80 mm[Hg] Molly A Cohen Work Phone: [facility] 205 DO Work Phone: 05-03-2021 08:33-0400 Heart rate 100 /min Molly A Cohen Work Phone: [facility] 205 DO Work Phone: 05-03-2021 08:33-0400 Systolic blood pressure 128 mm[Hg] Molly A Cohen Work Phone: [facility] 205 DO Work Phone: 01-29-2021 11:44-0400 Body height 165.1 cm Molly A Cohen Work Phone: [facility] 205 DO Work Phone: 01-29-2021 11:44-0400 Body mass index (BMI) [Ratio] 31.12 kg/m2 Molly A Cohen Work Phone: [facility] 205 DO Work Phone: 01-29-2021 11:44-0400 Body surface area Derived from formula 1.92 m2 Molly A Cohen Work Phone: [facility] 205 DO Work Phone: 01-29-2021 11:44-0400 Body temperature 96.9 [degF] Molly A Cohen Work Phone: [facility] 205 DO Work Phone: 01-29-2021 11:44-0400 Body weight 84.82 kg Molly A Cohen Work Phone: [facility] 205 DO Work Phone: 01-29-2021 11:44-0400 Diastolic blood pressure 80 mm[Hg] Molly A Cohen Work Phone: [facility] 205 DO Work Phone: 01-29-2021 11:44-0400 Heart rate 80 /min Molly A Cohen Work Phone: [facility] 205 DO Work Phone: 01-29-2021 11:44-0400 Systolic blood pressure 112 mm[Hg] Molly A Cohen Work Phone: [facility] 205 DO Work Phone: 01-26-2021 08:25-0400 Body height 165.1 cm Molly A Cohen Work Phone: [facility] 205 DO Work Phone: 01-26-2021 08:25-0400 Body mass index (BMI) [Ratio] 31.37 kg/m2 Molly A Cohen Work Phone: [facility] 205 DO Work Phone: 01-26-2021 08:25-0400 Body surface area Derived from formula 1.93 m2 Molly A Cohen Work Phone: [facility] 205 DO Work Phone: 01-26-2021 08:25-0400 Body temperature 97.1 [degF] Molly A Cohen Work Phone: [facility] 205 DO Work Phone: 01-26-2021 08:25-0400 Body weight 85.49 kg Molly A Cohen Work Phone: [facility] 205 DO Work Phone: 01-26-2021 08:25-0400 Diastolic blood pressure 84 mm[Hg] Molly A Cohen Work Phone: [facility] 205 DO Work Phone: 01-26-2021 08:25-0400 Heart rate 80 /min Molly A Cohen Work Phone: [facility] 205 DO Work Phone: 01-26-2021 08:25-0400 Systolic blood pressure 148 mm[Hg] Molly A Cohen Work Phone: [facility] 205 DO Work Phone: 01-23-2021 10:54-0400 Body height 165.1 cm Molly A Cohen Work Phone: [facility] 205 DO Work Phone: 01-23-2021 10:54-0400 Body mass index (BMI) [Ratio] 31.37 kg/m2 Molly A Cohen Work Phone: [facility] 205 DO Work Phone: 01-23-2021 10:54-0400 Body surface area Derived from formula 1.93 m2 Molly A Cohen Work Phone: [facility] 205 DO Work Phone: 01-23-2021 10:54-0400 Body temperature 97.5 [degF] Molly A Cohen Work Phone: [facility] 205 DO Work Phone: 01-23-2021 10:54-0400 Body weight 85.5 kg Molly A Cohen Work Phone: [facility] 205 DO Work Phone: 01-23-2021 10:54-0400 Diastolic blood pressure 80 mm[Hg] Molly A Cohen Work Phone: [facility] 205 DO Work Phone: 01-23-2021 10:54-0400 Heart rate 80 /min Molly A Cohen Work Phone: [facility] 205 DO Work Phone: 01-23-2021 10:54-0400 Systolic blood pressure 112 mm[Hg] Molly A Cohen Work Phone: [facility] 205 DO Work Phone: 06-27-2020 13:19-0500 BMI (Body Mass Index) 31.8 kg/m2 Sheryl Yangcarmel [facility] [place] [address] Work Phone: 06-27-2020 13:19-0500 Body Temperature 97.7 [degF] Sheryl Yangdmitriykristina [facility] [place] 1200 Work Phone: 06-27-2020 13:19-0500 Body weight 86.69 kg Sheryl Yangcarmel [facility] [place] 1200 Work Phone: 06-27-2020 13:19-0500 BP Diastolic 80 mm[Hg] Sheryl Yangcarmel [facility] [place] [address] Work Phone: 06-27-2020 13:19-0500 BP Systolic 114 mm[Hg] Sheryl Yangcarmel [facility] [place] [address] Work Phone: 06-27-2020 13:19-0500 BSA (Body Surface Area) 1.94 m2 Sheryl Yangcarmel [facility] [place] [address] Work Phone: 06-27-2020 13:19-0500 Height 165.1 cm Sheryl Celiacarmel [facility] [place] [address] Work Phone: 06-27-2020 13:19-0500 Respiratory Rate 64 /min Sheryl Lin [facility] [place] [address] Work Phone: 06-05-2020 11:40-0500 BMI (Body Mass Index) 30.29 kg/m2 Sheryl Lin [facility] [place] 1200 Work Phone: 06-05-2020 11:40-0500 Body weight 82.56 kg Sheryl Lin [facility] [place] [address] Work Phone: 06-05-2020 11:40-0500 BP Diastolic 83 mm[Hg] Sheryl Lin [facility] [place] [address] Work Phone: Comment on above: Location: LUE; Position: Sitting 06-05-2020 11:40-0500 BP Systolic 120 mm[Hg] Sheryl Lin [facility] [place] [address] Work Phone: Comment on above: Location: LUE; Position: Sitting 06-05-2020 11:40-0500 BSA (Body Surface Area) 1.9 m2 Sheryl Lin [facility] [place] [address] Work Phone: 06-05-2020 11:40-0500 Height 165.1 cm Sheryl Lin [facility] [place] [address] Work Phone: 06-05-2020 11:40-0500 Pulse (Heart Rate) 78 /min Sheryl Lin [facility] [place] [address] Work Phone: 06-05-2020 11:40-0500 Pulse Oximetry 100 % Sheryl Lin [facility] [place] [address] Work Phone: 06-05-2020 11:40-0500 Respiratory Rate 16 /min Sheryl Lin [facility] [place] [address] Work Phone: 06-05-2020 11:40-0500 3 1 Sheryl Wasserbauer [facility] [place] [address] Work Phone: Comment on above: Pain Scale 05-01-2020 17:36-0400 Body Temperature 98.3 [degF] Sheryl Lin EX-GYSY-Gsvdo alty [place] [address] Work Phone: Comment on above: Method: Tympanic 05-01-2020 17:36-0400 Body weight 81.64 kg Sheryl Lin XD-XWOE-Takcsp lty [place] [address] Work Phone: 05-01-2020 17:36-0400 BP Diastolic 76 mm[Hg] Sheryl Lin SW-IKPC-Mdwigj lty [place] [address] Work Phone: 05-01-2020 17:36-0400 BP Systolic 118 mm[Hg] Sheryl Lin MY-ZRZT-Mayefm lty [place] [address] Work Phone: 05-01-2020 17:36-0400 Pulse (Heart Rate) 89 /min Sheryl Lin MP-WSPC-Spe cialty [place] [address] Work Phone: 05-01-2020 17:36-0400 Pulse Oximetry 99 % Sheryl Lin YO-RPXH-Tabfkn lty [place] [address]00 Work Phone: Comment on above: Source: RA 05-01-2020 17:36-0400 Respiratory Rate 17 /min Sheryl Lin HV-OANK-Mtiek alty [place] [address]00 Work Phone: Encounters Encounter Date Encounter Type Care Provider Facility Start: 08-02-2024 End: 08-02-2024 Subsequent hospital visit by physician Mark X-Ray Fluoro 1 [facility] Comment on above: Acute cough Start: 08-02-2024 End: 08-02-2024 Patient encounter procedure Carolyn Saavedra 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-LMFT Work Phone: [facility] Comment on above: COVID-19 (Primary Dx ); Dental cavity; Acute cough Start: 08-02-2024 End: 08-02-2024 ambulatory CAROLYN Emily KERI [facility] Start: 07-06-2024 End: 07-06-2024 Subsequent hospital visit by physician Mark [id number] X-Ray [facility] Comment on above: Acute cough Start: 07-06-2024 End: 07-06-2024 Office outpatient visit 15 minutes Molly Miles Cohen DO Work Phone: [facility] Comment on above: Acute cough (Primary Dx) Start: 07-06-2024 End: 07-06-2024 ambulatory [facility] Amb[facility] Start: 02-11-2024 End: 02-11-2024 ambulatory [facility] Facility:[facility] Start: 10-14-2023 End: 10-14-2023 Subsequent hospital visit by physician Mark [id number] Mammo [facility] Comment on above: Encounter for screen ing mammogram for breast cancer Start: 10-14-2023 End: 10-14-2023 ambulatory [facility] Start: 10-02-2023 End: 10-02-2023 Office outpatient visit 25 minutes Molly A Cohen DO Work Phone: [facility] Comment on above: Anxiety (Primary Dx) ; Encounter for screening mammogram for breast cancer; Routine general medical examination at a health care facility; Primary narcolepsy with cataplexy; Depression, major, single episode, moderate (CMS/HCC) Start: 10-02-2023 End: 10-02-2023 Patient encounter status Molly A Cohen DO Work Phone[facility] Work Phone: Start: 10-02-2023 End: 10-02-2023 ambulatory [facility] Start: 10-02-2023 End: 10-02-2023 Encounter for general adult medical examination without abnormal findings [facility] Start: 07-18-2023 End: 07-18-2023 ambulatory [facility] Work Phone: Start: 07-18-2023 End: 07-18-2023 Patient encounter procedure [facility], Specimen Work Phone: Start: 07-18-2023 End: 07-18-2023 ambulatory [facility] Facility:[facility] Start: 07-04-2023 End: 07-04-2023 ambulatory [facility] Work Phone: Start: 07-04-2023 End: 07-04-2023 Patient encounter procedure [facility], Specimen Work Phone: Start: 07-04-2023 End: 07-04-2023 ambulatory [facility] Facility:[facility] Start: 06-10-2023 End: 06-10-2023 Subsequent hospital visit by physician Faviola Kelley MD Work Phone: [facility] [place] Comment on above: Kidney stone (Primar y Dx) Start: 06-04-2023 End: 06-04-2023 Office outpatient visit 15 minutes Molly Cohen DO Work Phone: [facility] Comment on above: Anxiety (Primary Dx) ; Depression, major, single episode, moderate (CMS/HCC); Right ureteral calculus Start: 05-13-2023 End: 05-13-2023 Subsequent hospital visit by physician Faviola Kelley MD Work Phone: [facility] [place] Comment on above: Other hydronephrosis (Primary Dx); Calculus of ureter Start: 05-01-2023 End: 05-01-2023 Emergency department patient visit Harris Mcdaniels [facility] Emergency 09 Start: 12-17-2022 ambulatory MOLLY HALE [facility] Ambulatory Start: 12-17-2022 End: 12-17-2022 Office outpatient visit 15 minutes Andreina Singh DPM Work Phone: [facility] Comment on above: Onychomycosis (Prima ry Dx); Pain due to onychomycosis of toenail of left foot; Pain due to onychomycosis of toenail of right foot; Hyperhidrosis Start: 11-26-2022 End: 11-26-2022 Office outpatient visit 15 minutes Molly Cohen DO Work Phone: [facility] Comment on above: LUE weakness (Primar y Dx); Paresthesia of left upper extremity Start: 10-25-2022 AUDIT Molly Aquino Uzair e Work Phone: [facility] 205 DO Work Phone: Start: 09-10-[address] Molly Rosenthal [id number] Start: 09-10-2022 Phys/qhp telephone evaluation 11-20 min Molly Cohen Work Phone: [facility] DO Work Phone: Start: 07-03-[address] Molly Rosenthal [id number] Start: 05-02-[address] Molly Rosenthal [id number] Start: 03-27-2022 Patient encounter procedure Molly Cohen Work Phone: [facility] DO Work Phone: Start: 03-27-[address] Molly Rosenthal [id number] Start: 03-02-2022 End: 03-02-2022 Emergency department patient visit Scot Vargas [facility] Emergency 01 Start: 02-20-2022 AUDIT Molly Dunne e Work Phone: [facility] DO Work Phone: Start: 01-28-2022 Chart Update Molly Dunne e Work Phone: [facility] 205 DO Work Phone: Start: 01-25-[address] Molly Rosenthal [id number] Start: 12-28-2021 AUDIT Molly Dunne e Work Phone: [facility] 205 DO Work Phone: Start: 12-25-[address] Molly Cohen Facil [id number] Start: 10-10-2021 ambulatory Wendi Sanford [id number] Start: 10-01-2021 AUDIT Molly A Uzair e Work Phone: [facility] 205 DO Work Phone: Start: 09-25-2021 Office outpatient vi sit 15 minutes Molly A Cohen Work Phone: [facility] 205 DO Work Phone: Start: 09-25-[address] Molly Rosenthal [id number] Start: 09-05-2021 AUDIT Molly A Uzair e Work Phone: [facility] 205 DO Work Phone: Start: 09-03-2021 Office outpatient vi sit 15 minutes Molly A Cohen Work Phone: [facility] 205 DO Work Phone: Start: 08-07-2021 AUDIT Molly A Uziar e Work Phone: [facility] 205 DO Work Phone: Start: 07-26-2021 Chart Update Molly A Uzair e Work Phone: [facility] 205 DO Work Phone: Start: 07-19-2021 Patient encounter procedure Molly A Cohen Work Phone: QV-WDDP-Ctbtteuow [place] [address] Work Phone: Start: 07-10-2021 AUDIT Molly A Uzair e Work Phone: [facility]HFUJ-[place] [address] Work Phone: Start: 07-05-2021 Office outpatient vi sit 15 minutes Molly A Cohen Work Phone: [facility] 205 DO Work Phone: Start: 07-05-2021 Patient encounter procedure Molly A Cohen Work Phone: [facility] 205 DO Work Phone: Start: 07-03-2021 Chart Update Molly A Uzair e Work Phone: [facility] 205 DO Work Phone: Start: 06-28-2021 End: 06-28-2021 Emergency department patient visit Harris Mcdaniels [facility] Emergency 09 Start: 06-27-2021 Chart Update Molly A Uzair e Work Phone: [facility] 205 DO Work Phone: Start: 06-27-2021 Office outpatient vi sit 25 minutes Molly A Cohen Work Phone: [facility] 205 DO Work Phone: Start: 06-22-2021 INJECTION, Provider: Sheryl Lin, Status: Pen, Time: 8:40 AM Molly A Cohen Work Phone: [facility] 205 DO Work Phone: Start: 06-22-2021 Patient encounter procedure Molly A Cohen Work Phone: QP-EROY-Rrtauhfnk [place] [address] Work Phone: Start: 06-21-2021 AUDIT Molly A Uzair e Work Phone: [facility] 205 DO Work Phone: Start: 06-11-2021 Phys/qhp telephone evaluation 21-30 min Molly A Cohen Work Phone: EV-MCBQ-Qwhzzwcfo [place] [address] Work Phone: Start: 06-07-2021 Chart abstracting Tirso Alex DPM Work Phone: [facility] Start: 06-07-2021 End: 06-07-2021 Office outpatient visit 10 minutes Tirso Alex DPM Work Phone: [facility] Comment on above: Ingrown nail of grea t toe of right foot (Primary Dx) Start: 06-04-2021 End: 06-04-2021 Emergency department patient visit Umberto Cano [facility] Emergency 04 Start: 05-29-2021 Office outpatient vi sit 15 minutes Molly A Cohen Work Phone: [facility] 205 DO Work Phone: Start: 05-29-2021 Patient encounter procedure Molly Cohen [facility] Start: 05-29-2021 End: 05-29-2021 Emergency department patient visit Scot Vargas [facility] Emergency Start: 05-03-2021 Office outpatient vi sit 15 minutes Molly A Cohen Work Phone: [facility] 205 DO Work Phone: Start: 04-25-2021 AUDIT Molly A Uzair e Work Phone: [facility] 205 DO Work Phone: Start: 04-17-2021 Chart Update Molly A Uzair e Work Phone: [facility] 205 DO Work Phone: Start: 02-08-2021 Patient encounter procedure Molly A Cohen Work Phone: [facility] [place] [address] Work Phone: Start: 02-05-2021 AUDIT Molly A Uzair e Work Phone: [facility] 205 DO Work Phone: Start: 02-02-2021 Chart Update Molly A Uzair e Work Phone: [facility] 205 DO Work Phone: Start: 01-30-2021 EPV, Provider: Molly Cohen, Status: Pen, Time: 2:20 PM Molly A Cohen Work Phone: [facility] 205 DO Work Phone: Start: 01-30-2021 Patient encounter procedure Molly A Cohen Work Phone: [facility] 205 DO Work Phone: Start: 01-29-2021 EPVSICK, Provider: Molly Cohen, Status: Pen, Time: 11:40 AM Molly A Cohen Work Phone: [facility] 205 DO Work Phone: Start: 01-29-2021 Office outpatient vi sit 15 minutes Molly A Cohne Work Phone: [facility] 205 DO Work Phone: Start: 01-29-2021 Chart Update Molly A Uzair e Work Phone: [facility] 205 DO Work Phone: Start: 01-26-2021 Office outpatient vi sit 15 minutes Molly A Cohen Work Phone: [facility] 205 DO Work Phone: Start: 01-26-2021 Patient encounter procedure Molly Cohen Work Phone: [facility] 205 DO Work Phone: Start: 01-11-2021 Patient encounter procedure Molly Cohen Work Phone: [facility] [place] [address] Work Phone: Start: 07-27-2020 End: 07-27-2020 Patient encounter procedure TIRSO BACON [facility] Start: 07-13-2020 Patient encounter procedure Sheryl Petersonadonis VZ-ZSIR-Jrmpjcsnq [place] [address] Work Phone: Start: 06-27-2020 Patient encounter procedure Sheryl Yangcarmel [facility] [place] [address] Work Phone: Start: 06-05-2020 Patient encounter procedure Sheryl Petersonadonis [facility] [place] [address] Work Phone: Start: 2020 Patient encounter procedure Sheryl Lin [facility] [place] [address] Work Phone: Start: 05-30-2020 Patient encounter procedure Sheryl Lin [facility] [place] [address] Work Phone: Start: 05-26-2020 Patient encounter procedure Sheryl Yangdmitriykristina [facility] [place] [address] Work Phone: Start: 05-25-2020 Patient encounter procedure Sheryl Yangcarmel [facility] [place] [address] Work Phone: Start: 05-01-2020 Patient encounter procedure Sheryl Yangdmitriykristina MP-WSPC-N [place] [address] Work Phone: Procedures Date Procedure Procedure Detail Performing Clinician Start: 08-02-2024 POCT SARS-COV-2/FLU/ RSV PCR SYMPTOMATIC Carolyn Saavedra 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-LMFT Work Phone: Start: 08-02-2024 Radiologic exam ches t 2 views Carolyn Saavedra 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-LMFT Work Phone: Start: 07-06-2024 Radiologic exam ches t 2 views Molly Cohen DO Work Phone: Start: 10-14-2023 BI MAMMO BILATERAL S CREENING TOMOSYNTHESIS MOLLY COHEN Start: 10-14-2023 End: 10-14-2023 Screening digital breast tomosynthesis bi Molly Cohen DO Work Phone: Start: 06-10-2023 PULSE OXIMETRY, CONTINUOUS Jose Graves Francisco DO Work Phone: Start: 06-10-2023 Urine test visual color cmprsn meths Jose Singh DO Work Phone: Start: 06-10-2023 PULSE OXIMETRY, SPOT Renate you Kelley MD Work Phone: Start: 05-13-2023 X-ray urinary tract exam with contrast material Faviola Kelley MD Work Phone: Start: 05-13-2023 End: 05-13-2023 PULSE OXIMETRY, CONTINUOUS Armando ravi MD Work Phone: Start: 06-27-2020 Hep C screen high risk/other Sheryl Lin Start: 06-05-2020 Blood count complete auto&auto difrntl wbc Sheryl Lin Start: 06-05-2020 C-reactive protein Vilmac angie Lin Start: 06-05-2020 Comprehensive metabo lic 2000 panel Sheryl Lin Start: 06-05-2020 Fluorescent nonnfct agt antb screen ea antibody Sheryl Lin Start: 06-05-2020 Sedimentation rate r bc automated Sheryl Lin Start: 06-05-2020 Urnls dip stick/tabl et reagent auto microscopy Sheryl Lin Start: 2020 Echocardiography Sheryl Lin Start: 05-26-2020 Assay of thyroid sti mulating hormone tsh Sheryl Lin Start: 05-26-2020 Lipid 1996 panel - S thanh or Plasma Molly Cohen DO Work Phone: Start: 05-25-2020 Antinuclear antibodies jr Sheryl Gillkristina Start: 05-25-2020 Blood count complete auto&auto difrntl wbc Sheryl Yangcarmel Start: 05-25-2020 C-reactive protein Vilmac y iRley Start: 05-25-2020 Comprehensive metabo lic 2000 panel Sheryl Yangcarmel Start: 05-25-2020 Lipid panel Sheryl Cabello leonilavaishnavi Start: 05-25-2020 Rheumatoid factor quantitative Sheryl Yangcarmel Start: 05-25-2020 Sedimentation rate r bc automated Sheryl Yangcarmel Start: 05-09-2020 Complement functiona l activity each component Sheryl Yangcarmel Start: 05-08-2020 Complement antigen e ach component Sheryl Yangcarmel Start: 05-08-2020 Complement functiona l activity each component Sheryl Yangcarmel Cardiac catheterization Nanc y Celiacarmel section Sheryl Petersonse garrison Dilation and curettage Sheryl Petersonadonis Lithotripsy Sheryl Petersonmeme er Surgical procedure o n eye proper Sheryl Yangcarmel Plan of Treatment Date Care Activity Detail Author Start: 2033 Zoster Vaccines (1 of 2) Zoste r Vaccines (1 of 2) [facility] Start: 06-27-2030 DTaP/Tdap/Td Vaccine s (3 - Td or Tdap) DTaP/Tdap/Td Vaccines (3 - Td or Tdap) [facility] Start: 06-27-2030 Tetanus vaccination Tetanus: Every 1 0yrs [facility] Start: 05-26-2025 Lipid panel Lipid Panel [facility] Start: 10-13-2024 Screening for malign ant neoplasm of breast Mammogram [facility] Start: 07-06-2024 End: 07-06-2025 XR Chest 2 Views [facility] Service Area Work Phone: Comment on above: Expected: 07/06/2024 , Expires: 07/06/2025 Start: 04-04-2024 COVID-19 Vaccine ( season) COVID-19 Vaccine ( season) [facility] Start: 04-04-2024 Influenza vaccination Influenza Vacc ine (#1) [facility] Start: 01-06-2024 End: 01-06-2024 Patient encounter procedure 01/06/2024 10:40 AM EDT Office Visit [facility] [address] [place] [id number] Molly Cohen DO [address] [place] [address] [facility] Start: 10-14-2023 End: 10-14-2023 Patient encounter procedure 10/14/2023 9:30 AM EDT Appointment [facility] [address] [place] [address] [facility] Start: 10-02-2023 End: 10-01-2024 CBC W Auto Differential panel - Blood CBC and Auto Differential Lab Routine Routine general medical examination at a health care facility Expected: 10/02/2023 (Approximate), Expires: 10/01/2024 [facility] Work Phone: Comment on above: Expected: 10/02/2023 (Approximate), Expires: 10/01/2024 Start: 10-02-2023 End: 10-01-2024 Comprehensive metabolic 2000 panel - Serum or Plasma Comprehensive Metabolic Panel Lab Routine Routine general medical examination at a [facility] Expected: 10/02/2023 (Approximate), Expires: 10/01/2024 [facility] Work Phone: Comment on above: Expected: 10/02/2023 (Approximate), Expires: 10/01/2024 Start: 10-02-2023 End: 11-30-2024 DBT Breast - bilateral BI mammo bilateral screening tomosynthesis Imaging Routine Encounter for screening mammogram for breast cancer Expected: 10/02/2023, Expires: 11/30/2024 [facility] Service Area Work Phone: Comment on above: Expected: 10/02/2023 , Expires: 11/30/2024 Start: 10-02-2023 End: 10-01-2024 Lipid 1996 panel - Serum or Plasma Lipid Panel Lab Routine Routine general medical examination at a health care facility Expected: 10/02/2023 (Approximate), Expires: 10/01/2024 [facility] Work Phone: Comment on above: Expected: 10/02/2023 (Approximate), Expires: 10/01/2024 Start: 07-04-2023 End: 07-04-2023 Patient encounter procedure 07/04/2023 8:20 AM EST Office Visit [facility] [address] [place] [address] Molly Cohen DO [address] [place] [address] [facility] Start: 06-10-2023 End: 06-10-2023 Admission to same day surgery center 06/10/2023 11:00 AM EST - 06/10/2023 12:00 PM EST Surgery [facility] OR [address] [place] [phone] Faviola Kelley MD [address] [place] [address] Lithotripsy Extracorporeal Shock Wave [70214 (CPT )] [facility] OR Comment on above: Lithotripsy Extracor poreal Shock Wave [23821 (CPT )] Start: 06-10-2023 Subsequent hospital visit by physician 06/10/2023 11:00 AM EST Hospital Encounter [facility] [place] [address] [place] [phone] Faviola Kelley MD [address] [place] [address] [facility] [place] Start: 06-10-2023 End: 06-10-[address] [facility] OR Start: 2023 Screening for malign ant neoplasm of breast [facility] Start: 05-13-2023 End: 05-13-2023 Cysto/uretero w/lithotripsy &indwell stent insrt Cystoscopy with Lithotripsy Calculus of ureter Other hydronephrosis 05/13/2023 9:19 AM EDT [facility] Start: 05-01-2023 End: 05-04-2023 Iohexol (Omnipaque 350-Radiology Contrast) . ; (OMNIPAQUE)DOSE = 97.5 mL IntraVenous Push OnceCa.5 mL/Kg/DOSE x 65 Kg = 97.5 mL/Dose (Daily Total is 97.5 mL)LABS: Blood Urea Nitrogen, Serum,15,01-May-2023 06:51:32 Creatinine, Serum,0.78,01-May-2023 06:51:32 Start: 01-May-2023 End: 03-May-2023 Ordered: 01-May-2023 Rafi Groves [facility] Start: 04-04-2023 Influenza vaccination [facility] Start: 11-26-2022 End: 11-27-2023 EMG & nerve conduction EMG & nerve conduction Neurology Routine LUE weakness Paresthesia of left upper extremity Expected: 11/26/2022 (Approximate), Expires: 11/27/2023 [facility] Service Area Work Phone: Comment on above: Expected: 11/26/2022 (Approximate), Expires: 11/27/2023 Start: 06-25-2022 FUV, Provider: Molly Cohen, Status: Pen, Time: 3:40 PM FUV, Provider: Molly Cohen, Status: Pen, Time: 3:40 PM [facility] 205 DO Work Phone: Start: 06-25-2022 Patient encounter procedure [facility] Start: 05-02-2022 FUV, Provider: Molly Cohen, Status: Pen, Time: 4:00 PM FUV, Provider: Molly Cohen, Status: Pen, Time: 4:00 PM [facility] 205 DO Work Phone: Start: 12-25-2021 FUV, Provider: Molly Cohen, Status: Pen, Time: 8:00 AM FUV, Provider: Molly Cohen, Status: Pen, Time: 8:00 AM [facility] 205 DO Work Phone: Start: 10-10-2021 Patient encounter procedure [facility] Start: 09-25-2021 EPV, Provider: Molly Cohen, Status: Pen, Time: 8:00 AM EPV, Provider: Molly Cohen, Status: Pen, Time: 8:00 AM [facility] 205 DO Work Phone: Start: 09-25-2021 Patient encounter procedure [facility] Start: 08-23-2021 NPV, Provider: Bruno Beck, Status: Pen, Time: 9:30 AM NPV, Provider: Bruno Beck, Status: Pen, Time: 9:30 AM [facility] 205 DO Work Phone: Start: 08-23-2021 Patient encounter procedure [facility] Start: 07-19-2021 Patient encounter procedure [facility] [place] [facility] Start: 06-27-2021 EPV, Provider: Molly Cohen, Status: Pen, Time: 9:00 AM EPV, Provider: Molly Cohen, Status: Pen, Time: 9:00 AM [facility] 205 DO Work Phone: Start: 06-27-2021 Patient encounter procedure [facility] Start: 06-21-2021 End: 06-21-2021 Patient encounter procedure 06/21/2021 Office Visit Podiatry Tirso Alex, ANAIS [address] [place] [address] [facility] Start: 05-29-2021 EPV, Provider: Molly Cohen, Status: Pen, Time: 11:00 AM EPV, Provider: Molly Cohen, Status: Pen, Time: 11:00 AM [facility] 205 DO Work Phone: Start: 05-29-2021 Patient encounter procedure Outpatient [facility] [place] Start: 29-May-2021 8:40 Molly Cohen Intent [facility] [place] Start: 04-04-2021 Influenza vaccination Sequenti al Influenza Vaccine (#1) [facility] Start: 03-08-2021 Patient encounter procedure INJECTION, Provider: [facility] [id number], Status: Pen, Time: 10:30 AM [facility] [place] [address] Work Phone: Start: 02-08-2021 Patient encounter procedure INJECTION, Provider: [facility] [id number], Status: Pen, Time: 10:30 AM [facility] [place] [address] Work Phone: Start: 01-23-2021 EPV, Provider: Molly Cohen, Status: Pen, Time: 11:20 AM EPV, Provider: Molly Cohen, Status: Pen, Time: 11:20 AM [facility] [place] [address] Work Phone: Start: 2004 Screening for malign ant neoplasm of cervix [facility] Start: 2002 Hepatitis B Vaccines (1 of 3 - 19+ 3-dose series) Hepatitis B Vaccines (1 of 3 - 19+ 3-dose series) [facility] Start: 2002 Pneumococcal Vaccine : Pediatrics and At-Risk Adult Patients (1 of 2 - PCV) Pneumococcal Vaccine: Pediatrics and At-Risk Adult Patients (1 of 2 - PCV) [facility] Start: 2001 Diabetes mellitus screening Diabetes Screening [facility] Start: 2001 Hepatitis C screening Hepatitis C Sc reening [facility] Start: 1998 HIV screening HIV Screening [facility] Start: 1996 Varicella vaccination Varicell a Vaccines (1 of 2 - 13+ 2-dose series) [facility] Start: 1995 COVID-19 Vaccine (1) COVID-19 Vaccin e (1) [facility] Start: 1995 Depression screening using PHQ-9 (Patient Health Questionnaire 9) score Depression Screening (PHQ-2/9) [facility] Start: 1989 Pneumococcal Vaccine : Ped or At-Risk (1 - PCV) Pneumococcal Vaccine: Ped or At-Risk (1 - PCV) [facility] Start: 1989 Pneumococcal Vaccine : Ped or At-Risk (1 of 2 - PPSV23) Pneumococcal Vaccine: Ped or At-Risk (1 of 2 - PPSV23) [facility] Start: 1989 Pneumococcal Vaccine : Pediatrics (0 to 5 Years) and At-Risk Patients (6 to 64 Years) (1 - PCV) Pneumococcal Vaccine: Pediatrics (0 to 5 Years) and At-Risk Patients (6 to 64 Years) (1 - PCV) [facility] Start: 1989 Pneumococcal Vaccine : Pediatrics (0 to 5 Years) and At-Risk Patients (6 to 64 Years) (1 of 2 - PCV) Pneumococcal Vaccine: Pediatrics (0 to 5 Years) and At-Risk Patients (6 to 64 Years) (1 of 2 - PCV) [facility] Start: 1986 History and physical examination, annual for health maintenance Wellness Visit [facility] Start: 1984 MMR Vaccines (1 of 1 - Standard series) MMR Vaccines (1 of 1 - Standard series) [facility] Start: 1984 Varicella vaccination Varicell a Vaccines (1 of 2 - 2-dose childhood series) [facility] Start: 1983 COVID-19 Vaccine (#1) COVID-19 Vacci ne (#1) [facility] Start: 1983 Hepatitis B Vaccines (1 of 3 - 3-dose series) Hepatitis B Vaccines (1 of 3 - 3-dose series) [facility] Start: 1983 HIV screening HIV Screening [facility] Start: 1983 Screening for malign ant neoplasm of cervix Pap Smear [facility] Start: 1983 Yearly Adult Physical Yearly Adult P hysical [facility] End: 05-13-2023 Choriogonadotropin ( test) [Presence] in Urine POCT , urine manually resulted Point of Care Testing Routine Once (Lab) for 1 Occurrences starting 05/13/2023 until 05/13/2023 [facility] Work Phone: Comment on above: Once (Lab) for 1 Occ urrences starting 05/13/2023 until 05/13/2023 End: 06-10-2023 Choriogonadotropin ( test) [Presence] in Urine POCT , urine Point of Care Testing STAT STAT (Lab) for 1 Occurrences starting 06/10/2023 until 06/10/2023 [facility] Service Area Work Phone: Comment on above: STAT (Lab) for 1 Occ urrences starting 06/10/2023 until 06/10/2023 End: 10-14-2023 DBT Breast - bilateral [facility] Area Work Phone: Comment on above: Once for 1 Occurrenc es starting 10/14/2023 until 10/14/2023 Glucose [Mass/volume ] in Serum or Plasma POCT Glucose Point of Care Testing - Docked Device Routine As needed (Lab) until discontinued starting 05/13/2023 [facility] Work Phone: Comment on above: As needed (Lab) unti l discontinued starting 05/13/2023 Glucose [Mass/volume ] in Serum or Plasma POCT Glucose Point of Care Testing - Docked Device Routine As needed (Lab) until discontinued starting 06/10/2023 [facility] Work Phone: Comment on above: As needed (Lab) unti l discontinued starting 06/10/2023 [employer] [place] [address] Work Phone: NEGATED: Highlighted row has been ruled out! Planned Goals not documented [employer] [place] [address] Work Phone: Immunizations Immunization Date Immunization Notes Care Provider Katherine guerrier 06-27-2020 influenza, seasonal, injectable Molly Cohen DO Work Phone: [facility] Work Phone: 06-27-2020 tetanus toxoid, reduced diphtheria toxoid, and acellular pertussis vaccine, adsorbed; Translations: [Tdap (Boostrix)] Sheryl Lin [facility] [place] [address] Work Phone: Comment on above: Series: 06-27-2020 influenza, injectabl e, quadrivalent, preservative free; Translations: [Flulaval Quadrivalent 0.5 ML Intramuscular Suspension Prefilled Syringe] Sheryl Riley [facility] [place] [address] Work Phone: Comment on above: Series: 06-27-2020 influenza virus vaccine, unspecified formulation Molly Cohen DO Work Phone: [facility] Work Phone: 10-10-2015 tetanus toxoid, reduced diphtheria toxoid, and acellular pertussis vaccine, adsorbed Molly A Mali Work Phone: [facility] Payers Date Payer Category Payer Self-pay 2022 [place] [employer] [facility] [id number] 2019 Unknown 2019 Unknown ZACKARY ROBERTS (JWQ/JWJ) [id number] 2019-Present [phone] [address] [place] [id number] 2019 Unknown [id number] 2015 Unknown [facility] [id number] 1983 Unknown [id number] [id number]. 356 1983 Unknown [id number] 2.16840.1.764327.3.579.2. 356 1983 Unknown [id number] 2.16840.1.252527.3.579.2. 356 1983 Unknown [id number] 2.840.1.378435.3.579.2. 356 1983 Unknown [id number] 2.840.1.036686.3.579.2. 356 1983 Unknown [id number] 2.840.1.713805.3.579.2. 356 1983 Unknown [id number] 2.840.1.805436.3.579.2. 356 1983 Unknown [id number] 2.840.1.723074.3.579.2. 356 1983 Unknown [id number] 2.840.1.706573.3.579.2. 903 1983 Unknown [id number] 2.840.1.884317.3.579.2. 1069 1983 Unknown [id number] 2840.1.486515.3.579.2. 1244 1983 Unknown [id number] 2.840.1.915006.3.579.2. 1244 1983 Unknown [id number] 2.840.1.412945.3.579.2. 1243 1983 Unknown [id number] 2.16840.1.159954.3.579.2. 1243 1983 Unknown [id number] 2.16840.1.786098.3.579.2. 1243 1983 Unknown [id number] 2.16840.1.723669.3.579.2. 1243 Unknown [id number] 2.16.840.1.983071.3.579.2. 462 Unknown [id number] 2.16.840.1.699105.3.579.2. 462 Unknown [id number] 2.16.840.1.197483.3.579.2. 462 Social History Date Type Detail Facility Start: 11-26-2022 End: 08-02-2024 Cigarette smoker one half pack a day or less Cigarette smoker one half pack a day or less [facility] [place] [address] Work Phone: Comment on above: since age 14; Start: 12-22-2015 Tobacco smokin g consumption unknown [facility] Start: 06-07-2021 End: 05-12-2023 Tobacco smoking status NHIS Smokes tobacco daily [facility] Start: 06-07-2021 End: 05-12-2023 Tobacco use and exposure Smokeless tobacco non-user [facility] Start: 06-07-2021 End: 12-17-2022 Alcohol intake Lifetime non-drinker (finding) [facility] Start: 06-07-2021 History SDOH Alcohol Frequency 1 [facility] Start: 1985 Sex Assigned At Not on file [facility] Start: 11-16-2022 End: 08-02-2024 Exposure to SARS-CoV-2 (event) Not sure [facility] History of tobacco use Cigarette Smoker [facility] Work Phone: Start: 11-26-2022 End: 08-02-2024 Tobacco use panel [facility] Work Phone: Start: 05-13-2023 End: 08-02-2024 Alcohol intake Ex-drinker (finding) [facility] Work Phone: Start: 1985 Sex Assigned At Female [facility] NEGATED: Highlighted row - - IX-AOYF-Btbmanugi [place] [address] Work Phone: Medical Equipment Procedure Code Equipment Code Equipment Origin al Text Equipment Identifier Dates Stent, Polaris U ltra 5fr 24cm, Disposable - [id number] Start: 05-13-2023 Functional Status Date Assessment Result Facility NEGATED: Highlighted row Functional performance Functional status health issues are not documented Disease NB-YKIE-Rnhanfdql [employer] [facility] Work Phone: Mental Status Date Assessment Result Facility NEGATED: Highlighted row Cognitive function [Interpretation] Cognitive status health issues are not documented Disease TZ-CCSI-Fmkxyglue [place] [address] Work Phone: Clinical Notes 11-06-2020 to 08-02-2024 Carolyn Saavedra APRN-LMFT - 08/02/2024 12:45 PM ESTAssessment & Plan Note - Molly Cohen, DO - 07/06/2024 1:12 PM ESTAssessment & Plan Note - Molly Cohen, - 07/06/2024 1:12 PM EST Note Date & Type Note Facility 08-02-2024 History of Present illness Narrative Images from the original note were not included. [facility] NOTE: Name: Zuly Cline, 39 y.o. CSN:[id number] PCP: Molly Cohen DO ALL: No Known Allergies History: Chief Complaint: URI (Dental pain, fever, congestion, right ear pain x 2 days) Encounter Date: 08/02/2024 HPI: The history was obtained from the patient. Zuly is a 39 y.o. female, who presents with a chief complaint of URI (Dental pain, fever, congestion, right ear pain x 2 days) Sinus pressure and pain, nasal congestion with yellow mucus, bilateral ear pain/fullness, productive cough with yellow sputum, mild sore throat, fever, chills, body aches, and fatigue. Mild shortness of breath with activity, denies wheezing. symptoms began 2 days ago, reports symptoms have progressively worsened since onset. Denies any abdominal pain, chest pain, rashes, urinary symptoms, vomiting, and diarrhea. Denies any lightheadedness or dizziness; no changes in mental status. No swelling in legs. Appetite is decreased; is able to eat and drink fluids without difficulty. Recently treated with Augmentin for pneumonia Also complains of dental pain that has waxed and waned but worsened over the last 24 hours. PMHx: Past Medical History: Diagnosis Date ADHD Personal history of other medical treatment 05/30/2020 History of echocardiogram Urinary frequency 11/25/2022 Current Outpatient Medications Medication Sig Dispense Refill albuterol 90 mcg/actuation inhaler Inhale 2 puffs every 4 hours if needed for wheezing or shortness of breath. 18 g 0 benzonatate (Tessalon) 100 mg capsule Take 1 capsule (100 mg) by mouth 3 times a day as needed for cough. Do not crush or chew. (Patient not taking: Reported on 08/02/2024) 30 capsule 0 clindamycin (Cleocin) 300 mg capsule Take 1 capsule (300 mg) by mouth 3 times a day for 10 days. 30 capsule 0 No current facility-administered medications for this visit. PMSx: Past Surgical History: Procedure Laterality Date KIDNEY STONE SURGERY 05/2023 OTHER SURGICAL HISTORY 05/01/2020 Cardiac catheterization OTHER SURGICAL HISTORY 05/01/2020 Lithotripsy OTHER SURGICAL HISTORY 05/01/2020 section OTHER SURGICAL HISTORY 05/01/2020 Eye surgery OTHER SURGICAL HISTORY 05/25/2020 Dilation and curettage Fam Hx: Family History Problem Relation Name Age of Onset Other (Cardiac disorder) Mother COPD Mother Diabetes Mother Hypertension Mother Breast cancer Paternal Grandmother Cancer Other Grandparent SOC. Hx: Social History Socioeconomic History Marital status: Spouse name: Not on file Number of children: Not on file Years of education: Not on file Highest education level: Not on file Occupational History Not on file Tobacco Use Smoking status: Every Day Current packs/day: 1.00 Average packs/day: 1 pack/day for 21.0 years (21.0 ttl pk-yrs) Types: Cigarettes Smokeless tobacco: Never Vaping Use Vaping status: Never Used Substance and Sexual Activity Alcohol use: Not Currently Drug use: Never Sexual activity: Not on file Other Topics Concern Not on file Social History Narrative Not on file Social Drivers of Health Financial Resource Strain: Not on file Food Insecurity: Not on file Transportation Needs: Not on file Physical Activity: Not on file Stress: Not on file Social Connections: Not on file Intimate Partner Violence: Not on file Housing Stability: Not on file Vitals: 08/02/24 1314 BP: 143/82 Pulse: Resp: Temp: SpO2: 90.7 kg (200 lb) Physical Exam Vitals and nursing note reviewed. Constitutional: Appearance: Normal appearance. HENT: Head: Normocephalic and atraumatic. Right Ear: Hearing, ear canal and external ear normal. A middle ear effusion is present. Tympanic membrane is erythematous. Tympanic membrane is not bulging. Tympanic membrane has normal mobility. Left Ear: Hearing, ear canal and external ear normal. A middle ear effusion is present. Tympanic membrane is erythematous. Tympanic membrane is not bulging. Tympanic membrane has normal mobility. Nose: Congestion and rhinorrhea present. Rhinorrhea is purulent. Right Sinus: Maxillary sinus tenderness and frontal sinus tenderness present. Left Sinus: Maxillary sinus tenderness and frontal sinus tenderness present. Mouth/Throat: Lips: [place]. Mouth: Mucous membranes are moist. Pharynx: Uvula midline. Posterior oropharyngeal erythema present. No pharyngeal swelling or oropharyngeal exudate. Tonsils: No tonsillar exudate. Cardiovascular: Rate and Rhythm: Normal rate and regular rhythm. Heart sounds: Normal heart sounds. Pulmonary: Effort: Pulmonary effort is normal. No respiratory distress. Breath sounds: Normal breath sounds. No stridor. No wheezing, rhonchi or rales. Chest: Chest wall: No tenderness. Abdominal: General: Bowel sounds are normal. Skin: General: Skin is warm and dry. Neurological: Mental Status: She is alert and oriented to person, place, and time. LABORATORY @ RADIOLOGICAL IMAGING (if done): Results for orders placed or performed in visit on 08/02/24 (from the past 24 hours) POCT SARS-COV-2/FLU/RSV PCR SYMPTOMATIC manually resulted Result Value Ref Range POC Coronavirus 2019, PCR Detected (A) Not Detected POC Flu A Result Not Detected Not Detected POC Flu B Result Not Detected Not Detected POC RSV PCR Not Detected Not Detected Study Result Narrative & Impression Interpreted By: Enrrique Link, STUDY: XR CHEST 2 VIEWS; 08/02/2024 1:37 pm INDICATION: Signs/Symptoms:cough. ,R05.1 Acute cough COMPARISON: 07/06/2024 ACCESSION NUMBER(S): [id number] ORDERING CLINICIAN: CAROLYN SAAVEDRA FINDINGS: The cardiomediastinal silhouette and pulmonary vasculature are within normal limits. No consolidation, pleural effusion or pneumothorax. IMPRESSION: No acute cardiopulmonary process. MACRO: None. Signed by: Enrrique Link 08/02/2024 2:16 PM Dictation workstation: [id number] Chest x-ray and COVID-19 results reviewed with patient, states understanding. Declines Paxlovid. Will start antibiotic for dental caries, advised to take probiotic with antibiotic therapy. States understanding. __ I did personally review Zuly's past medical history, surgical history, social history, as well as family history (when relevant). In this case, I also oversaw the her drug management by reviewing her medication list, allergy list, as well as the medications that I prescribed during the UC course and/or recommended as an out-patient (including possible OTC medications such as acetaminophen, NSAIDs , etc). After reviewing the items above, I did look at previous medical documentation, such as recent hospitalizations, office visits, and/or recent consultations with PCP/specialist. SDOH: Another factor that I considered in Zuly's care was her Social Determinants of Health (SDOH). During this UC encounter, she did not have social determinants of health. Those SDOH influencing Zuly's care are: none ___ UC COURSE/MEDICAL DECISION MAKING: Zuly is a 39 y.o., who presents with a working diagnosis of 1. COVID-19 2. Dental cavity 3. Acute cough Zuly was seen today for uri. Diagnoses and all orders for this visit: COVID-19 (Primary) Dental cavity - clindamycin (Cleocin) 300 mg capsule; Take 1 capsule (300 mg) by mouth 3 times a day for 10 days. Acute cough - POCT SARS-COV-2/FLU/RSV PCR SYMPTOMATIC manually resulted - albuterol 90 mcg/actuation inhaler; Inhale 2 puffs every 4 hours if needed for wheezing or shortness of breath. - XR chest 2 views; Future Plan of care reviewed with patient. If symptoms change and/or worsen will follow-up with primary care provider, return to urgent care, or go to the nearest emergency department for further evaluation. Patient states understanding and is agreeable with plan of care. Carolyn Saavedra APRN, ROSA Advanced Practice Provider [facility] Please note: While the patient may or may not have received printed discharge paperwork, all relevant medical findings, test results, and treatment details are accessible through the electronic medical record system. The patient is encouraged to review their chart via the patient portal for comprehensive information and follow-up instructions. documented in this encounter [facility] Work Phone: 07-06-2024 Evaluation + Plan note Associated Problem(s): Acute cough Symptomatic x1wk. Daughter recently treated for PNA. We will check cxr and will also start antibiotic as below. Will also provide rx for Tessalon perles for symptomatic benefit. She typically has antibiotic-induced yeast vaginitis, so will provide rx for fluconazole to take if needed. Medication dosing and side effects reviewed. Return precautions reviewed. [facility] Work Phone: 07-06-2024 Miscellaneous Notes Associated Problem(s): Acute cough Symptomatic x1wk. Daughter recently treated for PNA. We will check cxr and will also start antibiotic as below. Will also provide rx for Tessalon perles for symptomatic benefit. She typically has antibiotic-induced yeast vaginitis, so will provide rx for fluconazole to take if needed. Medication dosing and side effects reviewed. Return precautions reviewed. documented in this encounter [facility] Work Phone: 07-06-2024 History of Present illness Narrative Subjective Patient ID: Zuly Cline is a 39 y.o. female who presents for cough, chest congestion x1 week HPI Presenting today with a cough. States that this episode started 1wk ago. Notes productive cough, congestion, subjective fever, chills/rigors, sinus pressure with cough, nausea. Denies ear pain, abd pain, bowel changes. Has had to take leftover phenergan the past 2 days for her nausea. Has also tried Dayquil a couple times as well as ibuprofen and Tylenol which help temporarily. She states that her daughter was recently diagnosed with and treated for pneumonia. She has not taken a home covid test and is not interested viral testing. Review of Systems Constitutional: Positive for chills and fever (subjective). HENT: Positive for congestion, postnasal drip and sinus pressure. Respiratory: Positive for cough. Negative for shortness of breath. Cardiovascular: Negative for chest pain and palpitations. Gastrointestinal: Positive for nausea. Negative for abdominal pain, diarrhea and vomiting. Skin: Negative for rash. Objective BP 122/80 Pulse 94 Temp 36.7 C (98 F) Ht 1.676 m (5' 6) Wt 95.8 kg (211 lb 3.2 oz) SpO2 95% BMI 34.09 kg/m Physical Exam Vitals reviewed. Constitutional: Appearance: Normal appearance. HENT: Head: Normocephalic and atraumatic. Right Ear: Tympanic membrane, ear canal and external ear normal. Left Ear: Tympanic membrane, ear canal and external ear normal. Nose: Congestion present. No rhinorrhea. Mouth/Throat: Mouth: Mucous membranes are moist. Pharynx: Posterior oropharyngeal erythema present. No oropharyngeal exudate. Eyes: General: No scleral icterus. Conjunctiva/sclera: Conjunctivae normal. Cardiovascular: Rate and Rhythm: Normal rate and regular rhythm. Pulmonary: Effort: Pulmonary effort is normal. No respiratory distress. Breath sounds: Rhonchi (upper lobes) present. Musculoskeletal: General: No deformity. Cervical back: Normal range of motion and neck supple. Lymphadenopathy: Cervical: No cervical adenopathy. Skin: General: Skin is warm and dry. Findings: No rash. Neurological: General: No focal deficit present. Mental Status: She is alert. Psychiatric: Mood and Affect: Mood normal. Behavior: Behavior normal. Assessment/Plan Problem List Items Addressed This Visit ICD-10-CM Acute cough - Primary R05.1 Symptomatic x1wk. Daughter recently treated for PNA. We will check cxr and will also start antibiotic as below. Will also provide rx for Tessalon perles for symptomatic benefit. She typically has antibiotic-induced yeast vaginitis, so will provide rx for fluconazole to take if needed. Medication dosing and side effects reviewed. Return precautions reviewed. Relevant Medications amoxicillin-pot clavulanate (Augmentin) 875-125 mg tablet fluconazole (Diflucan) 150 mg tablet benzonatate (Tessalon) 100 mg capsule Other Relevant Orders XR chest 2 views documented in this encounter [facility] Work Phone: 10-02-2023 Evaluation + Plan note Associated Problem(s): Primary narcolepsy with cataplexy Follows closely with sleep medicine (Anjelica Omalley) and managed on Adderall which has provided significant relief of symptoms. There was concern that stimulant was potentially affecting mental health/exacerbating anxiety. Her anxiety and depression are now adequately treated with SSRI and she is feeling much improved. From my perspective, it is appropriate to continue stimulant use for her narcolepsy as recommended/prescribed by sleep medicine. [facility] Work Phone: 10-02-2023 Miscellaneous Notes Associated Problem(s): Primary narcolepsy with cataplexy Follows closely with sleep medicine (Anjelica Omalley) and managed on Adderall which has provided significant relief of symptoms. There was concern that stimulant was potentially affecting mental health/exacerbating anxiety. Her anxiety and depression are now adequately treated with SSRI and she is feeling much improved. From my perspective, it is appropriate to continue stimulant use for her narcolepsy as recommended/prescribed by sleep medicine. Associated Problem(s): Depression, major, single episode, moderate (CMS/HCC) Lexapro increase. Associated Problem(s): Anxiety Improved with Lexapro. Using shared decision making, we decided to increase to 20mg every day. Okay to continue as needed hydroxyzine/Buspar. Medication dosing and side effects reviewed. Return precautions reviewed. documented in this encounter [facility] Work Phone: 10-02-2023 Evaluation + Plan note Associated Problem(s): Depression, major, single episode, moderate (CMS/HCC) Lexapro increase. [facility] Work Phone: 10-02-2023 Evaluation + Plan note Associated Problem(s): Anxiety Improved with Lexapro. Using shared decision making, we decided to increase to 20mg every day. Okay to continue as needed hydroxyzine/Buspar. Medication dosing and side effects reviewed. Return precautions reviewed. [facility] Work Phone: 10-02-2023 History of Present illness Narrative Subjective Patient ID: Zuly Cline is a 38 y.o. female who presents for check up. HPI Anx/dep - feeling improved with Lexapro, tolerating medication without adverse effects, tried hydroxyzine twice and Buspar a handful of times, both helped some, hesitant to take hydroxyzine regularly because she wants to be able to wake up in case of emergency, she has been prioritizing her own mental health recently, relationship with spouse has improved, overall feeling better Cervical Cancer Screening: follows at [facility] Breast Cancer Screening: due for initial Osteoporosis Screening: plan to start at age 65 Colon Cancer Screening: plan to start at age 43 Tobacco: 21 pack-yr hx, will be eligible for ldct at age 48 Alcohol: denies Recreational Drugs: denies Immunizations: due for [id number], otherwise utd Review of Systems Constitutional: Negative for chills and fever. Respiratory: Negative for cough and shortness of breath. Cardiovascular: Negative for chest pain and palpitations. Skin: Negative for rash. Psychiatric/Behavioral: Negative for dysphoric mood. The patient is not nervous/anxious. Objective BP 120/88 Pulse 68 Ht 1.676 m (5' 6) Wt 76.8 kg (169 lb 6.4 oz) BMI 27.34 kg/m Physical Exam Constitutional: Appearance: Normal appearance. HENT: Head: Normocephalic. Eyes: General: No scleral icterus. Conjunctiva/sclera: Conjunctivae normal. Pulmonary: Effort: Pulmonary effort is normal. No respiratory distress. Musculoskeletal: General: Normal range of motion. Skin: Findings: No rash. Neurological: Mental Status: She is alert. Psychiatric: Mood and Affect: Mood normal. Behavior: Behavior normal. Assessment/Plan Problem List Items Addressed This Visit ICD-10-CM Primary narcolepsy with cataplexy G47.411 Follows closely with sleep medicine (Christiano Omalleyoster) and managed on Adderall which has provided significant relief of symptoms. There was concern that stimulant was potentially affecting mental health/exacerbating anxiety. Her anxiety and depression are now adequately treated with SSRI and she is feeling much improved. From my perspective, it is appropriate to continue stimulant use for her narcolepsy as recommended/prescribed by sleep medicine. Depression, major, single episode, moderate (CMS/HCC) F32.1 Lexapro increase. Anxiety - Primary F41.9 Improved with Lexapro. Using shared decision making, we decided to increase to 20mg every day. Okay to continue as needed hydroxyzine/Buspar. Medication dosing and side effects reviewed. Return precautions reviewed. Relevant Medications escitalopram (Lexapro) 20 mg tablet Other Relevant Orders Follow Up In Primary Care - Established Other Visit Diagnoses Codes Encounter for screening mammogram for breast cancer Z12.31 Relevant Orders BI mammo bilateral screening tomosynthesis Follow Up In Primary Care - Established Routine general medical examination at a health care facility Z00.00 Relevant Orders CBC and Auto Differential Comprehensive Metabolic Panel Lipid Panel Follow Up In Primary Care - Established Will update screening labs and mammo and will follow up with results. Follow up in 3mo for recheck, sooner if needed. documented in this encounter [facility] Work Phone: 06-10-2023 Hospital Discharge instructions Yen Ramos RN - 06/10/2023 11:51 AM EST Please see enclosed instructions from Dr. Kelley and regarding anesthesia documented in this encounter [facility] Work Phone: 06-10-2023 Note Formatting of this n ote is different from the original. Lithotripsy Extracorporeal Shock Wave (R) Operative Note Date: 06/10/2023 OR Location: [facility] OR Name: Zuly Cline, : 1985, Age: 38 y.o., , Sex: female Diagnosis Pre-op Diagnosis * Kidney stone [N20.0] Post-op Diagnosis * Kidney stone [N20.0] Procedures Lithotripsy Extracorporeal Shock Wave [id number] - [place] LITHOTRIPSY XTRCORP SHOCK WAVE Surgeons * Faviola Kelley - Primary Resident/Fellow/Other Mechanical Adjuster: Surgeon(s) and Role: Procedure Summary Anesthesia: General ASA: II Anesthesia Staff: Anesthesiologist: Jose Singh DO Estimated Blood Loss: 0mL Intra-op Medications: Medication Name Total Dose lactated Ringer's infusion Cannot be calculated Anesthesia Record Intraprocedure I/O Totals Intake Ketamine 0.00 mL The total shown is the total volume documented since Anesthesia Start was filed. Propofol Drip 0.00 mL The total shown is the total volume documented since Anesthesia Start was filed. lactated Ringer's infusion 500.00 mL Total Intake 500 mL Specimen: No specimens collected Staff: Driver Recruiter: Ana Ding RN Indications: Zuly Cline is an 38 y.o. female who is having surgery for Kidney stone [N20.0]. The patient was seen in the preoperative area. The risks, benefits, complications, treatment options, non-operative alternatives, expected recovery and outcomes were discussed with the patient. The possibilities of reaction to medication, pulmonary aspiration, injury to surrounding structures, bleeding, recurrent infection, the need for additional procedures, failure to diagnose a condition, and creating a complication requiring transfusion or operation were discussed with the patient. The patient concurred with the proposed plan, giving informed consent. The site of surgery was properly noted/marked if necessary per policy. The patient has been actively warmed in preoperative area. Surgeon: Faviola Kelley MD Anesthetic: General. Pre-Op Diagnosis: Right Renal stone. Post-Op Diagnosis: Same. Operation: RIGHTextracorporeal shock wave lithotripsy. ESTIMATED BLOOD LOSS: Minimal. COMPLICATIONS: None. INDICATIONS AND CONSENT: Patient presents for Tx of known stone... After the risks, benefits, alternatives, and indications for the procedure were explained to the patient, consented. PROCEDURE: The patient was brought to the operating room and placed on the table in supine position. After adequate anesthesia was obtained, fluoroscopy was used to visualize the stone. A total of 2500 shocks were delivered. The patient tolerated the procedure well. There were no complications. Attending Attestation: I was present for the entire procedure. Faviola Kelley [facility] Work Phone: 06-10-2023 Miscellaneous Notes Lithotripsy Extracorporeal Shock Wave (R) Operative Note Date: 06/10/2023 OR Location: [facility] OR Name: Zuly Diaz Char Cline, : 1985, Age: 38 y.o., , Sex: female Diagnosis Pre-op Diagnosis * Kidney stone [N20.0] Post-op Diagnosis * Kidney stone [N20.0] Procedures Lithotripsy Extracorporeal Shock Wave [id number] - [place] LITHOTRIPSY XTRCORP SHOCK WAVE Surgeons * Faviola Kelley - Primary Resident/Fellow/Other Mechanical Adjuster: Surgeon(s) and Role: Procedure Summary Anesthesia: General ASA: II Anesthesia Staff: Anesthesiologist: Jose Singh DO Estimated Blood Loss: 0mL Intra-op Medications: Medication Name Total Dose lactated Ringer's infusion Cannot be calculated Anesthesia Record Intraprocedure I/O Totals Intake Ketamine 0.00 mL The total shown is the total volume documented since Anesthesia Start was filed. Propofol Drip 0.00 mL The total shown is the total volume documented since Anesthesia Start was filed. lactated Ringer's infusion 500.00 mL Total Intake 500 mL Specimen: No specimens collected Staff: Driver Recruiter: Ana Ding RN Indications: Zuly Cline is an 38 y.o. female who is having surgery for Kidney stone [N20.0]. The patient was seen in the preoperative area. The risks, benefits, complications, treatment options, non-operative alternatives, expected recovery and outcomes were discussed with the patient. The possibilities of reaction to medication, pulmonary aspiration, injury to surrounding structures, bleeding, recurrent infection, the need for additional procedures, failure to diagnose a condition, and creating a complication requiring transfusion or operation were discussed with the patient. The patient concurred with the proposed plan, giving informed consent. The site of surgery was properly noted/marked if necessary per policy. The patient has been actively warmed in preoperative area. Surgeon: Faviola Kelley MD Anesthetic: General. Pre-Op Diagnosis: Right Renal stone. Post-Op Diagnosis: Same. Operation: RIGHTextracorporeal shock wave lithotripsy. ESTIMATED BLOOD LOSS: Minimal. COMPLICATIONS: None. INDICATIONS AND CONSENT: Patient presents for Tx of known stone... After the risks, benefits, alternatives, and indications for the procedure were explained to the patient, consented. PROCEDURE: The patient was brought to the operating room and placed on the table in supine position. After adequate anesthesia was obtained, fluoroscopy was used to visualize the stone. A total of 2500 shocks were delivered. The patient tolerated the procedure well. There were no complications. Attending Attestation: I was present for the entire procedure. Faviola Kelley No outpatient medications have been marked as taking for the 06/10/23 encounter (Hospital Encounter). NPO Instructions: Nothing to eat or drink after midnight Additional Instructions: Will need wagon driver home. Arrive on 2nd floor at hospital at 0830 on Fridayjun 10 documented in this encounter [facility] Work Phone: 06-10-2023 Attending History and physical note H&P reviewed. The patient was examined and there are no changes to the H&P. Source Note - Faviola Kelley MD - 05/13/2023 7:58 AM EDT History Of Present Illness Zuly Clien is a 37 y.o. female presenting with right ureteral stone with hydro. Past Medical History Past Medical History: Diagnosis Date ADHD Personal history of other medical treatment 05/30/2020 History of echocardiogram Urinary frequency 11/25/2022 Surgical History Past Surgical History: Procedure Laterality Date OTHER SURGICAL HISTORY 05/01/2020 Cardiac catheterization OTHER SURGICAL HISTORY 05/01/2020 Lithotripsy OTHER SURGICAL HISTORY 05/01/2020 section OTHER SURGICAL HISTORY 05/01/2020 Eye surgery OTHER SURGICAL HISTORY 05/25/2020 Dilation and curettage Social History She reports that she has been smoking cigarettes. She has a 21.00 pack-year smoking history. She has never used smokeless tobacco. She reports that she does not currently use alcohol. She reports that she does not use drugs. Family History Family History Problem Relation Name Age of Onset Other (Cardiac disorder) Mother COPD Mother Diabetes Mother Hypertension Mother Cancer Other Grandparent Allergies Patient has no known allergies. Review of Systems Constitutional: Negative for chills and fever. HENT: Negative. Eyes: Negative. Respiratory: Negative for cough and shortness of breath. Cardiovascular: Negative for chest pain and leg swelling. Gastrointestinal: Negative for nausea. Endocrine: Negative. Genitourinary: Negative for difficulty urinating. Negative except for documented in HPI Allergic/Immunologic: Negative. Neurological: Alert & oriented X 3 Hematological: Denies blood thinners Psychiatric/Behavioral: Negative. Physical Exam Vitals and nursing note reviewed. Pulmonary: Effort: Pulmonary effort is normal. Breath sounds: Normal breath sounds. Abdominal: Palpations: Abdomen is soft. Tenderness: There is no abdominal tenderness. Genitourinary: Comments: Kidneys non palpable bilaterally Bladder non palpable or tender Neurological: Mental Status: She is alert. Last Recorded Vitals There were no vitals taken for this visit. Assessment/Plan Active Problems: Calculus of ureter Other hydronephrosis Faviola Kelley MD [facility] Work Phone: 06-10-2023 History and physical note H&P reviewed. The patient was examined and there are no changes to the H&P. Source Note - Faviola Kelley MD - 05/13/2023 7:58 AM EDT History Of Present Illness Zuly Cline is a 37 y.o. female presenting with right ureteral stone with hydro. Past Medical History Past Medical History: Diagnosis Date ADHD Personal history of other medical treatment 05/30/2020 History of echocardiogram Urinary frequency 11/25/2022 Surgical History Past Surgical History: Procedure Laterality Date OTHER SURGICAL HISTORY 05/01/2020 Cardiac catheterization OTHER SURGICAL HISTORY 05/01/2020 Lithotripsy OTHER SURGICAL HISTORY 05/01/2020 section OTHER SURGICAL HISTORY 05/01/2020 Eye surgery OTHER SURGICAL HISTORY 05/25/2020 Dilation and curettage Social History She reports that she has been smoking cigarettes. She has a 21.00 pack-year smoking history. She has never used smokeless tobacco. She reports that she does not currently use alcohol. She reports that she does not use drugs. Family History Family History Problem Relation Name Age of Onset Other (Cardiac disorder) Mother COPD Mother Diabetes Mother Hypertension Mother Cancer Other Grandparent Allergies Patient has no known allergies. Review of Systems Constitutional: Negative for chills and fever. HENT: Negative. Eyes: Negative. Respiratory: Negative for cough and shortness of breath. Cardiovascular: Negative for chest pain and leg swelling. Gastrointestinal: Negative for nausea. Endocrine: Negative. Genitourinary: Negative for difficulty urinating. Negative except for documented in HPI Allergic/Immunologic: Negative. Neurological: Alert & oriented X 3 Hematological: Denies blood thinners Psychiatric/Behavioral: Negative. Physical Exam Vitals and nursing note reviewed. Pulmonary: Effort: Pulmonary effort is normal. Breath sounds: Normal breath sounds. Abdominal: Palpations: Abdomen is soft. Tenderness: There is no abdominal tenderness. Genitourinary: Comments: Kidneys non palpable bilaterally Bladder non palpable or tender Neurological: Mental Status: She is alert. Last Recorded Vitals There were no vitals taken for this visit. Assessment/Plan Active Problems: Calculus of ureter Other hydronephrosis Faviola Kelley MD documented in this encounter [facility] Work Phone: 06-09-2023 Note Formatting of this n ote is different from the original. No outpatient medications have been marked as taking for the 06/10/23 encounter (Hospital Encounter). NPO Instructions: Nothing to eat or drink after midnight Additional Instructions: Will need wagon driver home. Arrive on 2nd floor at hospital at 0830 on Fridayjun 10 [facility] Work Phone: 06-04-2023 Evaluation + Plan note Associated Problem(s): Right ureteral calculus Scheduled for lithotripsy with Dr. Kelley next week. Continue close follow up with urology as previously scheduled. [facility] Work Phone: 06-04-2023 Evaluation + Plan note Associated Problem(s): Depression, major, single episode, moderate (CMS/HCC) Lexapro/Buspar/hydroxyzine trial. [facility] Work Phone: 06-04-2023 Miscellaneous Notes Associated Problem(s): Right ureteral calculus Scheduled for lithotripsy with Dr. Kelley next week. Continue close follow up with urology as previously scheduled. Associated Problem(s): Depression, major, single episode, moderate (CMS/HCC) Lexapro/Buspar/hydroxyzine trial. Associated Problem(s): Anxiety Exacerbated. Reviewed options. Using shared decision making, we decided to trial Lexapro as well as prn Buspar during the day and prn hydroxyzine before bed. Medication dosing and side effects reviewed. Encouraged follow up with therapist. Follow up in 1mo for recheck, sooner if needed. Return precautions reviewed. documented in this encounter [facility] Work Phone: 06-04-2023 Evaluation + Plan note Associated Problem(s): Anxiety Exacerbated. Reviewed options. Using shared decision making, we decided to trial Lexapro as well as prn Buspar during the day and prn hydroxyzine before bed. Medication dosing and side effects reviewed. Encouraged follow up with therapist. Follow up in 1mo for recheck, sooner if needed. Return precautions reviewed. [facility] Work Phone: 06-04-2023 History of Present illness Narrative Subjective Patient ID: Zuly Cline is a 38 y.o. female who presents for check up. Has another kidney stone procedure 06/10 HPI Kidney stones - following with Dr. Kelley, was in ED 05/01/2023 due to kidney stones, s/p R ureteral stent placement 05/13/2023, scheduled for lithotripsy 06/10/2023, asymptomatic currently Anx/dep - struggling with significant life stressors and relationship strain, having hard time sleeping due to mind racing, had to quit her job due to her own health and health of family members, doesn't think she will be able to continue following with therapist due to cost Review of Systems Constitutional: Negative for chills and fever. Respiratory: Negative for cough and shortness of breath. Cardiovascular: Negative for chest pain and palpitations. Skin: Negative for rash. Psychiatric/Behavioral: Positive for dysphoric mood and sleep disturbance. The patient is nervous/anxious. Objective BP 118/82 Pulse 80 Ht 1.651 m (5' 5) Wt 70 kg (154 lb 6.4 oz) LMP 05/04/2023 BMI 25.69 kg/m Physical Exam Constitutional: Appearance: Normal appearance. HENT: Head: Normocephalic. Eyes: General: No scleral icterus. Conjunctiva/sclera: Conjunctivae normal. Pulmonary: Effort: Pulmonary effort is normal. No respiratory distress. Musculoskeletal: General: Normal range of motion. Skin: Findings: No rash. Neurological: Mental Status: She is alert. Psychiatric: Mood and Affect: Mood normal. Behavior: Behavior normal. Assessment/Plan Problem List Items Addressed This Visit ICD-10-CM Right ureteral calculus N20.1 Scheduled for lithotripsy with Dr. Kelley next week. Continue close follow up with urology as previously scheduled. Depression, major, single episode, moderate (CMS/HCC) F32.1 Lexapro/Buspar/hydroxyzine trial. Anxiety - Primary F41.9 Exacerbated. Reviewed options. Using shared decision making, we decided to trial Lexapro as well as prn Buspar during the day and prn hydroxyzine before bed. Medication dosing and side effects reviewed. Encouraged follow up with therapist. Follow up in 1mo for recheck, sooner if needed. Return precautions reviewed. Relevant Medications escitalopram (Lexapro) 10 mg tablet busPIRone (Buspar) 5 mg tablet hydrOXYzine pamoate (VistariL) 25 mg capsule Other Relevant Orders Follow Up In Primary Care - Established Follow up in 1mo for recheck, sooner if needed. documented in [facility] Work Phone: 05-13-2023 Hospital Discharge instructions Faviola Kelley MD - 05/13/2023 9:46 AM EDT FOLLOW UP WITH ME IN 1 WEEK, CALL OFFICE FOR AN APPOINTMENT documented in this encounter [facility] Work Phone: 05-13-2023 Miscellaneous Notes CYSTO R RPG R UETER W/TATIANA R STENT (R) Operative Note Date: 05/13/2023 OR Location: [facility] OR Name: Zuly Cline, : 1985, Age: 37 y.o., , Sex: female Diagnosis Pre-op Diagnosis * Calculus of ureter [N20.1] * Other hydronephrosis [N13.39] Post-op Diagnosis * Calculus of ureter [N20.1] * Other hydronephrosis [N13.39] Procedures CYSTO R RPG R UETER W/TATIANA R STENT [id number] - [place] CYSTO/URETERO W/LITHOTRIPSY &INDWELL STENT INSRT Surgeons * Faviola Kelley - Primary Resident/Fellow/Other Mechanical Adjuster: No surgical staff documented. Procedure Summary Anesthesia: General ASA: III Anesthesia Staff: Anesthesiologist: Armando Marion MD Estimated Blood Loss: 0mL Intra-op Medications: Medication Name Total Dose iohexol (OMNIPaque) 300 mg iodine/mL injection 50 mL Anesthesia Record Intraprocedure I/O Totals Intake Ketamine 0.00 mL The total shown is the total volume documented since Anesthesia Start was filed. Total Intake 0 mL Specimen: No specimens collected Staff: Driver Recruiter: Ana Ding RN Scrub Person: Mary Benz RN Drains and/or Catheters: * None in log * Tourniquet Times: Implants: Implants Type Name Action Serial No. Shunt STENT, POLARIS ULTRA 5FR 24CM, DISPOSABLE - [id number] Implanted Findings: right ureteral stone Indications: Zuly Cline is an 37 y.o. female who is having surgery for Calculus of ureter [N20.1] Other hydronephrosis [N13.39]. The patient was seen in the preoperative area. The risks, benefits, complications, treatment options, non-operative alternatives, expected recovery and outcomes were discussed with the patient. The possibilities of reaction to medication, pulmonary aspiration, injury to surrounding structures, bleeding, recurrent infection, the need for additional procedures, failure to diagnose a condition, and creating a complication requiring transfusion or operation were discussed with the patient. The patient concurred with the proposed plan, giving informed consent. The site of surgery was properly noted/marked if necessary per policy. The patient has been actively warmed in preoperative area. Preoperative diagnosis: Right ureteral stone Postoperative diagnosis: The same Physician: Warren Procedure: Cystoscopy with right RPG, right ureteroscopy with holmium and stent placement ESTIMATED BLOOD LOSS: Minimal. COMPLICATIONS: None. INDICATIONS AND CONSENT: After the risks, benefits, alternatives and indications of this procedure were explained to the patient consented. PROCEDURE: The patient was brought to the operating room, placed on the table in supine position. After adequate anesthesia was obtained, the patient was prepped and draped in the standard surgical fashion. First, a 21 [place]er cystoscope was inserted into the bladder, and formal cystoscopy was performed. A guidewire was placed up the ureter into the renal pelvis using fluoroscopic guidance .A right retrograde pyelogram suggested a small filling defect in the ureter. The small stone washed out of the distal ureter when the guidewire was passed. The ureteroscope was taken up to the level of the renal pelvis and no other stones were seen. . Flexible ureteroscopy was performed. There were some renal stones suggested on RPG. but could not be reached with the flexible scope. we then shot a retrograde pyelogram which did not show any obvious filling defects or additional stones in the ureter. The ureteroscope was removed and a 5 x 24 double-J stent was placed under direct fluoroscopic vision. The patient tolerated the procedure well and there were no complications. Attending Attestation: I was present and scrubbed for the entire procedure. FOLLOW UP WITH KUB TO LOOK FOR RENAL STONES SEEN ON CT. STENT CAN BE REMOVED IN OFFICE Faviola Kelley No outpatient medications have been marked as taking for the 05/13/23 encounter (Hospital Encounter). NPO Instructions: Do not eat any food after midnight the night before your surgery/procedure. Additional Instructions: Bring wagon driver. Arrive at 2nd floor registration at 0730 katey documented in this encounter [facility] Work Phone: 05-13-2023 Note Formatting of this n ote is different from the original. CYSTO R RPG R UETER W/TATIANA R STENT (R) Operative Note Date: 05/13/2023 OR Location: [facility] OR Name: uZly Cline, : 1985, Age: 37 y.o., , Sex: female Diagnosis Pre-op Diagnosis * Calculus of ureter [N20.1] * Other hydronephrosis [N13.39] Post-op Diagnosis * Calculus of ureter [N20.1] * Other hydronephrosis [N13.39] Procedures CYSTO R RPG R UETER W/TATIANA R STENT [id number] - [place] CYSTO/URETERO W/LITHOTRIPSY &INDWELL STENT INSRT Surgeons * Faviola Kelley - Primary Resident/Fellow/Other Mechanical Adjuster: No surgical staff documented. Procedure Summary Anesthesia: General ASA: III Anesthesia Staff: Anesthesiologist: Armando Marion MD Estimated Blood Loss: 0mL Intra-op Medications: Medication Name Total Dose iohexol (OMNIPaque) 300 mg iodine/mL injection 50 mL Anesthesia Record Intraprocedure I/O Totals Intake Ketamine 0.00 mL The total shown is the total volume documented since Anesthesia Start was filed. Total Intake 0 mL Specimen: No specimens collected Staff: Driver Recruiter: Ana Ding RN Scrub Person: Mary Benz RN Drains and/or Catheters: * None in log * Tourniquet Times: Implants: Implants Type Name Action Serial No. Shunt STENT, POLARIS ULTRA 5FR 24CM, DISPOSABLE - [id number] Implanted Findings: right ureteral stone Indications: Zuly Cline is an 37 y.o. female who is having surgery for Calculus of ureter [N20.1] Other hydronephrosis [N13.39]. The patient was seen in the preoperative area. The risks, benefits, complications, treatment options, non-operative alternatives, expected recovery and outcomes were discussed with the patient. The possibilities of reaction to medication, pulmonary aspiration, injury to surrounding structures, bleeding, recurrent infection, the need for additional procedures, failure to diagnose a condition, and creating a complication requiring transfusion or operation were discussed with the patient. The patient concurred with the proposed plan, giving informed consent. The site of surgery was properly noted/marked if necessary per policy. The patient has been actively warmed in preoperative area. Preoperative diagnosis: Right ureteral stone Postoperative diagnosis: The same Physician: Warren Procedure: Cystoscopy with right RPG, right ureteroscopy with holmium and stent placement ESTIMATED BLOOD LOSS: Minimal. COMPLICATIONS: None. INDICATIONS AND CONSENT: After the risks, benefits, alternatives and indications of this procedure were explained to the patient consented. PROCEDURE: The patient was brought to the operating room, placed on the table in supine position. After adequate anesthesia was obtained, the patient was prepped and draped in the standard surgical fashion. First, a 21 [place]er cystoscope was inserted into the bladder, and formal cystoscopy was performed. A guidewire was placed up the ureter into the renal pelvis using fluoroscopic guidance .A right retrograde pyelogram suggested a small filling defect in the ureter. The small stone washed out of the distal ureter when the guidewire was passed. The ureteroscope was taken up to the level of the renal pelvis and no other stones were seen. . Flexible ureteroscopy was performed. There were some renal stones suggested on RPG. but could not be reached with the flexible scope. we then shot a retrograde pyelogram which did not show any obvious filling defects or additional stones in the ureter. The ureteroscope was removed and a 5 x 24 double-J stent was placed under direct fluoroscopic vision. The patient tolerated the procedure well and there were no complications. Attending Attestation: I was present and scrubbed for the entire procedure. FOLLOW UP WITH KUB TO LOOK FOR RENAL STONES SEEN ON CT. STENT CAN BE REMOVED IN OFFICE Faviola Kelley [facility] Work Phone: 05-13-2023 History and physical note History Of Present Illness Zuly Cline is a 37 y.o. female presenting with right ureteral stone with hydro. Past Medical History Past Medical History: Diagnosis Date ADHD Personal history of other medical treatment 05/30/2020 History of echocardiogram Urinary frequency 11/25/2022 Surgical History Past Surgical History: Procedure Laterality Date OTHER SURGICAL HISTORY 05/01/2020 Cardiac catheterization OTHER SURGICAL HISTORY 05/01/2020 Lithotripsy OTHER SURGICAL HISTORY 05/01/2020 section OTHER SURGICAL HISTORY 05/01/2020 Eye surgery OTHER SURGICAL HISTORY 05/25/2020 Dilation and curettage Social History She reports that she has been smoking cigarettes. She has a 21.00 pack-year smoking history. She has never used smokeless tobacco. She reports that she does not currently use alcohol. She reports that she does not use drugs. Family History Family History Problem Relation Name Age of Onset Other (Cardiac disorder) Mother COPD Mother Diabetes Mother Hypertension Mother Cancer Other Grandparent Allergies Patient has no known allergies. Review of Systems Constitutional: Negative for chills and fever. HENT: Negative. Eyes: Negative. Respiratory: Negative for cough and shortness of breath. Cardiovascular: Negative for chest pain and leg swelling. Gastrointestinal: Negative for nausea. Endocrine: Negative. Genitourinary: Negative for difficulty urinating. Negative except for documented in HPI Allergic/Immunologic: Negative. Neurological: Alert & oriented X 3 Hematological: Denies blood thinners Psychiatric/Behavioral: Negative. Physical Exam Vitals and nursing note reviewed. Pulmonary: Effort: Pulmonary effort is normal. Breath sounds: Normal breath sounds. Abdominal: Palpations: Abdomen is soft. Tenderness: There is no abdominal tenderness. Genitourinary: Comments: Kidneys non palpable bilaterally Bladder non palpable or tender Neurological: Mental Status: She is alert. Last Recorded Vitals There were no vitals taken for this visit. Assessment/Plan Active Problems: Calculus of ureter Other hydronephrosis Faviola Kelley MD [facility] Work Phone: 05-13-2023 History and physical note History Of Present Illness Zuly Cline is a 37 y.o. female presenting with right ureteral stone with hydro. Past Medical History Past Medical History: Diagnosis Date ADHD Personal history of other medical treatment 05/30/2020 History of echocardiogram Urinary frequency 11/25/2022 Surgical History Past Surgical History: Procedure Laterality Date OTHER SURGICAL HISTORY 05/01/2020 Cardiac catheterization OTHER SURGICAL HISTORY 05/01/2020 Lithotripsy OTHER SURGICAL HISTORY 05/01/2020 section OTHER SURGICAL HISTORY 05/01/2020 Eye surgery OTHER SURGICAL HISTORY 05/25/2020 Dilation and curettage Social History She reports that she has been smoking cigarettes. She has a 21.00 pack-year smoking history. She has never used smokeless tobacco. She reports that she does not currently use alcohol. She reports that she does not use drugs. Family History Family History Problem Relation Name Age of Onset Other (Cardiac disorder) Mother COPD Mother Diabetes Mother Hypertension Mother Cancer Other Grandparent Allergies Patient has no known allergies. Review of Systems Constitutional: Negative for chills and fever. HENT: Negative. Eyes: Negative. Respiratory: Negative for cough and shortness of breath. Cardiovascular: Negative for chest pain and leg swelling. Gastrointestinal: Negative for nausea. Endocrine: Negative. Genitourinary: Negative for difficulty urinating. Negative except for documented in HPI Allergic/Immunologic: Negative. Neurological: Alert & oriented X 3 Hematological: Denies blood thinners Psychiatric/Behavioral: Negative. Physical Exam Vitals and nursing note reviewed. Pulmonary: Effort: Pulmonary effort is normal. Breath sounds: Normal breath sounds. Abdominal: Palpations: Abdomen is soft. Tenderness: There is no abdominal tenderness. Genitourinary: Comments: Kidneys non palpable bilaterally Bladder non palpable or tender Neurological: Mental Status: She is alert. Last Recorded Vitals There were no vitals taken for this visit. Assessment/Plan Active Problems: Calculus of ureter Other hydronephrosis Faviola Kelley MD documented in this encounter [facility] Work Phone: 05-12-2023 Note Formatting of this n ote is different from the original. No outpatient medications have been marked as taking for the 05/13/23 encounter (Hospital Encounter). NPO Instructions: Do not eat any food after midnight the night before your surgery/procedure. Additional Instructions: Bring wagon driver. Arrive at 2nd floor registration at 729 [facility] Work Phone: 12-17-2022 Instructions Andreina Singh DPM - 12/17/2022 9:18 AM EDT Instructions: Extra depth/fabric tennis shoes that do not bend at the arch Apply vicks vapor rub to all toenails 100% cotton socks to change at least twice daily Astringent spray from [employer] to help with sweaty feet (hyperhidrosis) documented in this encounter [facility] 12-17-2022 History of Present illness Narrative Images from the original note were not included. Established Patient Visit Andreina Singh DPM Patient Name: Zuly CLINE. . Date of : 1985, 37 y.o.. Gender: female. Subjective: Patient is a pleasant 37-year-old female who presents clinic concerned about discoloration to her toenails and some callus formation around the toenails. Reports that she had trauma to the right great toenail a few years ago and her toenail was treated with phenol. Since this injury, she has had no pain to the right great toenail but has noticed thickening and discoloration to the remaining toenails. Admits to having sweaty feet every day. No other pedal complaint at this time. Denies fevers, chills, nausea, vomiting, chest pain, shortness of breath, or any other constitutional symptoms. Physical Examination: BP 126/78 (BP Location: Left arm, Patient Position: Sitting, BP Cuff Size: Adult) Pulse 76 Temp 98.5 F (36.9 C) (Infrared) General Appearance: Alert, cooperative, no distress, appears stated age. Podiatric Exam Vascular: DP and PT pulses are palpable 2/4. Capillary refill time is less than 3 seconds to distal digits. Skin temperature is warm to warm from proximal tibial tuberosity to distal digit. Neurological: Gross sensation is intact. Protective sensation is intact. Dermatologic: All toenails are somewhat thickened, discolored white with some subungual debris. No surrounding erythema, edema or any acute signs infection. Interdigital spaces are clean dry and intact. Musculoskeletal: Patient is able to wiggle digits ankle joint range of motion is intact. Muscle strength is 5/5 to dorsiflexors, plantar flexors, inverters and everters. Compartments soft and compressible. No calf pain Diagnoses: 1. Onychomycosis 2. Pain due to onychomycosis of toenail of left foot 3. Pain due to onychomycosis of toenail of right foot 4. Hyperhidrosis Imaging: None obtained at this visit Assessment/Plan: Patient was seen and evaluated. Discussed all clinical findings Patient has onychomycosis to most of her toenails. Recommended applying Vicks VapoRub only to the toenails. Recommended wearing 100% cotton socks daily and to change them at least twice per day. Patient can also purchase Astringent sprays [id number] to help reduce perspiration. We will obtain patient's liver function test prior to prescribing terbinafine. Discussed its risks with relation to hepatic toxicity, its benefits, etc. If patient's liver function test are within normal limits, we will prescribe her terbinafine that she will take for 3 months. All questions were answered to patient satisfaction. Patient understands to call with any questions or concerns. This note was partially created using voice recognition software and is inherently subject to errors including those of syntax and sound-alike substitutions which may escape proofreading. In such instances, original meaning may be extrapolated by contextual derivation. Andreina Singh DPM, MS Podiatric Physician & Surgeon documented in this encounter [facility] 11-27-2022 Evaluation + Plan note Associated Problem(s): Paresthesia of left upper extremity EMG. [facility] Work Phone: 11-27-2022 Evaluation + Plan note Associated Problem(s): LUE weakness Intermittent LUE muscle weakness/paresthesias x3-4wks after no apparent trauma/injury, but did start after daughter noticed a bruise which has since resolved. No other joint involvement. Reviewed workup options. Using shared decision making, we decided to proceed with EMG. Will follow up with results when available. Return precautions reviewed. [facility] Work Phone: 11-27-2022 Miscellaneous Notes Associated Problem(s): Paresthesia of left upper extremity EMG. Associated Problem(s): LUE weakness Intermittent LUE muscle weakness/paresthesias x3-4wks after no apparent trauma/injury, but did start after daughter noticed a bruise which has since resolved. No other joint involvement. Reviewed workup options. Using shared decision making, we decided to proceed with EMG. Will follow up with results when available. Return precautions reviewed. documented in this encounter [facility] Work Phone: 11-26-2022 History of Present illness Narrative Left shoulder/arm pain, hard to lift up. Noticed bruise about a month ago, no injury aware of Subjective Patient ID: Zuly Cline is a 37 y.o. female who presents for Shoulder Pain and Arm Pain. HPI States that she woke up 3-4wks ago as usual and her daughter noticed bruise posterior aspect of her L shoulder/L upper back. Denies trauma or injury, but did feel like she slept wrong. Bruising eventually resolved, but started noticing weakness in the L arm. Was able to use her hand normally. Had some mild pain in the shoulder diffusely that radiated up into neck. Tried ibuprofen and Tylenol which did not provide much relief. States that pain has resolved, but now still struggling with intermittent weakness of the L arm. Having a hard time turning the steering wheeling when she drives. There is occasional mild pins and needles feeling in the LUE diffusely. Otherwise denies numbness, joint pain, other weakness. Review of Systems Constitutional: Negative for chills and fever. Respiratory: Negative for cough and shortness of breath. Cardiovascular: Negative for chest pain and palpitations. Musculoskeletal: Positive for arthralgias. Skin: Negative for rash. Neurological: Positive for weakness. Psychiatric/Behavioral: Negative for dysphoric mood. The patient is not nervous/anxious. Objective BP 112/74 Pulse 64 Ht 1.651 m (5' 5) Wt 68.9 kg (151 lb 12.8 oz) BMI 25.26 kg/m Physical Exam Constitutional: Appearance: Normal appearance. HENT: Head: Normocephalic. Eyes: General: No scleral icterus. Conjunctiva/sclera: Conjunctivae normal. Pulmonary: Effort: Pulmonary effort is normal. No respiratory distress. Musculoskeletal: General: Normal range of motion. Right shoulder: Normal. Normal strength. Left shoulder: No swelling, deformity, effusion, tenderness or bony tenderness. Normal range of motion. Decreased strength: +4/5 MS throughout LUE. Comments: No overlying skin changes Skin: Findings: No rash. Neurological: Mental Status: She is alert. Psychiatric: Mood and Affect: Mood normal. Behavior: Behavior normal. Assessment/Plan Problem List Items Addressed This Visit Paresthesia of left upper extremity EMG. Relevant Orders EMG & nerve conduction LUE weakness - Primary Intermittent LUE muscle weakness/paresthesias x3-4wks after no apparent trauma/injury, but did start after daughter noticed a bruise which has since resolved. No other joint involvement. Reviewed workup options. Using shared decision making, we decided to proceed with EMG. Will follow up with results when available. Return precautions reviewed. Relevant Orders EMG & nerve conduction documented in this encounter [facility] Work Phone: 09-07-2022 History of Present illness Narrative Patient presents today via telephone visit with chief complaint of sore throat. States that this episode started 4 days ago with R-sided throat pain, AUGUST, R ear pain. Sore throat is worse with swallowing. Did look and her throat and states that there are no white spots. Denies CP, SOB, AUGUST, LH, dizziness, abd pain, n/v/d, sinus pressure, cough. Not sure if she's had a fever due to taking Tylenol/ibuprofen regularly since pain started. 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 [facility] [address] DO Work Phone: 08-29-2021 History of Present illness Narrative Patient presents today with chief complaint of L arm rash. States that this episode started 5 days ago with a linear bruise on L lateral forearm which she attributes to bumping on something at work. Had some itching around the bruise so scratched it. Has since has burning and pain in the L forearm. States that it also felt warm to touch and had some spreading redness. States that her mom was concerned about cellulitis. Denies fever, chills, SOB, other systemic symptoms. Thought that an allergic reaction may have been starting, so did take a few 50mg prednisone tablets which did not help with her arm symptoms. [facility] 205 DO Work Phone: 06-27-2021 History of Present illness Narrative Patient presents today to discuss shave biopsy and antecubital blood draw sites. Had shave bx and blood draw 06/27/2021. Since that time, has tried to keep both sites covered with triple antibiotic ointment and a wrap due to allergy to bandaids in the past. She is concerned about possible infection in the areas. Denies fever, chills, drainage, worsening redness.She also notes PND, bl mild ear pain, mild dry cough, nasal congestion, rhinorrhea for the past few days. She was sick 2mo ago with COVID-19 symptoms and her children (who live with her) tested + for COVID-19 at that time, so unlikely that she has a reinfection. [facility] 205 DO Work Phone: 06-25-2021 History of Present illness Narrative Patient presents today for follow up.Regarding life stressors, states that she has had a strained relationship with her father for the past few months. Denies depression, SI/HI. States that her weight loss is likely secondary to her worrying about this situation. She requests referral for establishment with counsellor so that she can learn healthy ways to improve their relationship.Cervical Cancer Screening: ROYCE Dejesus, plans to make apptBreast Cancer Screening: plan to start at age 38Osteoporosis Screening: plan to start at age 63Colon Cancer Screening: plan to start at age 43Tobacco: not yet ready to quitAlcohol: deniesRecreational Drugs: deniesImmunizations: declines covid, missed influenza this year, otherwise [facility] 205 DO Work Phone: 06-07-2021 History of Present illness Narrative Toenail Avulsion Procedure Note Pre-operative Diagnosis: 1. Ingrown nail of great toe of right foot Post-operative Diagnosis: Same Indications: Patient is a 36-year-old female comes in the office for recurrent ingrown right great toenail. Patient had the nail removed last July and states that it grew back. Anesthesia: Local Procedure Details History of allergy to iodine: no The risks (including bleeding and infection) and benefits of the procedure and Written informed consent obtained. After digital block of 3cc of 2% lidocaine plain anesthesia was obtained, a tourniquet was applied for hemostasis during the procedure. After prepping with Betadine, the offending medial edge of the nail was freed from the nailbed and perionychium, and then cut with a combination of a turkmen nail anvil/ #61 blade and then removed with forceps. All visible granulation tissue is debrided. I treated the nail matrix with 89% phenol on a cotton tip applicator stick for 60 seconds 3 times. Flushed the wound with saline. Antibiotic and bulky dressing was applied. Findings: INT- The medial border of the right great toenail was incurvated painful sore and swollen. Neuro sensation intact- right foot Vascular-DP and PT pulses were palpable Complications: none. Plan: 1. Soak the foot twice daily with luke warm water and epsom salts twice daily and cover with a wound gel or antibiotic ointment until healed over. 2. Warning signs of infection were reviewed. 3. Recommended that the patient use OTC acetaminophen as needed for pain. 4. Return in 2 weeks. 5. Postop wound instruction sheet dispensed. documented in this encounter [facility] 06-07-2021 Instructions Janeth Garcia TECHNOLOGIST - 06/07/2021 1:37 PM EDT Nail Surgery Post-Operative Instructions General Information Stay off your feet as much as possible today. You may wear any shoe, sandal, or open toe footwear that does not squeeze or constrict your toe. Your toe may remain numb for up to 6-10 hours after the procedure. Bleeding/Drainage Slight bleeding, discoloration and/or red, pink, orange drainage is normal. Discomfort You can elevate your foot to help alleviate minor swelling, bleeding and discomfort. You may also take aspirin, Tylenol or other [id number] pain relievers as directed on the package. If pain is not controlled to your comfort, please contact our office. Removing the surgical bandage/dressing The day after the surgery, carefully remove the dressing and shower/bathe as normal. If the gauze or dressing sticks to the surgical area, dampen it with water or shower/bathe with the dressing in place. This will make the dressing easier to remove with minimal discomfort. Blot dry with a clean cloth. A band-aid and antibiotic ointment should be changed twice daily on the surgical area until your follow-up appointment with the doctor. documented in this encounter [facility] 05-28-2021 History of Present illness Narrative reaction last night - to ERbenadryl, prednisone, nightly meds, cold showerno difficulty breathing but facial swellingmedicine stopped worseningwaited too long in waiting room that [facility] Phone: 05-28-[facility]21 History of Present illness Narrative Patient presents today for follow up.Regarding anaphylaxis, states that she is not longer getting Xolair due to insurance/financial burden. Did have an episode last night. Had facial swelling, but no difficulty breathing. Took normal nighttime medications (antihistamines) as well as additional Benadryl and a prednisone. Spoke with sales communications manager physician, who recommended ED evaluation. She went to the ED and then improved while waiting in the waiting room, so went back home. Feels almost back to baseline at this time.Regarding skin lesions, is localized to R lateral knee. Has been there for a while and sometimes gets bigger and then smaller. Denies pain, itching, redness, drainage. Is interested in removal. [facility] 205 DO Work Phone: 05-01-2021 History of Present illness Narrative Zuly returns with complaints of chronic joint pain. Got worse over the past 2 days ago. States, I can't go to work like this because I work in a [employer] and I swear sometimes when I'm in pain and I can't be doing that.Reports she has not been back up to see her market risk specialist or back to get her Xolair injections due to her insurance not covering injections anymore. She states, I owe [facility] special[facility] pharmacy over $6,000 and they won't let me get the shots anymore. Last injection was in February but has not contacted her market risk specialist to see if there is another medication she can try that her insurance may cover. States, I didn't think of that being why I am hurting so bad, now. [facility] 205 DO Work Phone: 01-23-2021 History of Present illness Narrative Patient presents today with chief complaint of irritation from bandaid. Shave biopsy performed 01/23/2021 right superior shoulder and bandaid placed. She removed the bandaid that evening and states that later on that night she noticed redness around the site of bandaid application. Since that time, has become increasingly red with associated itching. She states that she did have very mild associated SOB last night, so did take 50mg prednisone x1 as well as 2 Benadryl over the past 24hrs. Currently denies SOB, tongue/face/lip/throat swelling, eye itchiness. [facility] 205 DO Work Phone: 11-06-2020 History of Present illness Narrative Patient presents today for contact dermatitis recheck. Is currently on day 4/5 of prednisone burst and is taking her antihistamines as prescribed. States that she has noticed more redness on the shoulder over the weekend. Denies itching, systemic symptoms, drainage, throat/tongue/lip swelling. Has been using neosporin and bacitracin occasionally. Otherwise using the topical steroid cream and aquaphor. [facility] 205 DO Work Phone: Evaluation note Diagnosis Ingrown nail of great toe of right foot- [facility] LUE weakness- Primary Other musculoskeletal symptoms referable to limbs Paresthesia of left upper extremity documented [facility] Work Phone: Evaluation note* Diagnosis Onychomycosis- Primary Dermatophytosis of nail Pain due to onychomycosis of toenail of left foot Pain due to onychomycosis of toenail of right foot Hyperhidrosis Generalized hyperhidrosis [facility] Other hydronephrosis- Primary Other hydronephrosis Calculus of ureter Calculus of ureter documented in this encounter [facility] Work Phone: Evaluation note* Diagnosis Kidney stone- Primary Calculus of kidney Anxiety- Primary Anxiety state, unspecified Depression, major, single episode, moderate (CMS/HCC) Right ureteral calculus Calculus of ureter Kidney stone Calculus of kidney documented in this encounter [facility] Work Phone: Evaluation note* Diagnosis Kidney stone- Primary Calculus of kidney Kidney stone Calculus of kidney documented in this encounter [facility] Work Phone: Evaluation noteNo assessment information available [facility] Work Phone: Evaluation note* Diagnosis Anxiety- Primary Anxiety state, unspecified Encounter for screening mammogram for breast cancer Routine general medical examination at a health care facility Primary narcolepsy with cataplexy Depression, major, single episode, moderate (CMS/HCC) documented in this encounter [facility] Work Phone: Evaluation note* Diagnosis Encounter for screening mammogram for breast cancer documented in this encounter [facility] Work Phone: Evaluation note* Diagnosis Encounter for screening mammogram for breast cancer documented in this encounter [facility] Work Phone: Evaluation note* Diagnosis Anxiety- Primary Anxiety state, unspecified Depression, major, single episode, moderate (Multi) Right ureteral calculus Calculus of ureter Anxiety- Primary Anxiety state, unspecified Encounter for screening mammogram for breast cancer Routine general medical examination at a health care facility Primary narcolepsy with cataplexy ([facility]) Depression, major, single episode, moderate (Multi) Acute cough- Primary documented in [facility] encounter [facility] Work Phone: Evaluation note* Diagnosis Anxiety- Primary Anxiety state, unspecified Depression, major, single episode, moderate (Multi) Right ureteral calculus Calculus of ureter Anxiety- Primary Anxiety state, unspecified Encounter for screening mammogram for breast cancer Routine general medical examination at a health care facility Primary narcolepsy with cataplexy ([facility]) Depression, major, single episode, moderate (Multi) Acute cough- Primary Acute cough documented in this encounter [facility] Work Phone: Evaluation note* Diagnosis Anxiety- Primary Anxiety state, unspecified Depression, major, single episode, moderate (Multi) Right ureteral calculus Calculus of ureter Anxiety- Primary Anxiety state, unspecified Encounter for screening mammogram for breast cancer Routine general medical examination at a health care facility Primary narcolepsy with cataplexy ([facility]) Depression, major, single episode, moderate (Multi) Acute cough- Primary COVID-19- Primary Dental cavity Unspecified dental caries Acute cough Acute cough documented in [facility] encounter [facility] Work Phone: Evaluation note* Diagnosis Anxiety- Primary Anxiety state, unspecified Depression, major, single episode, moderate (Multi) Right ureteral calculus Calculus of ureter Anxiety- Primary Anxiety state, unspecified Encounter for screening mammogram for breast cancer Routine general medical examination at a health care facility Primary narcolepsy with cataplexy ([facility]-HCC) Depression, major, single episode, moderate (Multi) Acute cough- Primary Acute cough documented in [facility] encounter [facility] Work Phone: History of Present illness NarrativePatient presents today for follow up regarding R shoulder contact dermatitis and re-biopsy of superior R shoulder lesion. She finished course of prednisone and is feeling much better. R shoulder erythema has almost completely resolved. Is almost back to baseline and requests that we do the re-shavebiopsy today. Otherwise doing well.[facility] 205 DO Work Phone: History of Present illness Narrative* Was on Xolair with excellent control of her hives. * The refills were denied and now she is having recurrence of hives. * She has been to the ER 2 times. * She has gone to her family doctor 2 times as well. * She has been on steroids each visit (at least 4 times). * She takes Famotidine and Zyrtec twice a day. She is taking only once a day due to her narcolepsy. [facility] Work Phone: History of Present illness Narrative* Patient presents today for shave biopsy of R lateral knee lesion. First noticed many years ago. Gets bigger and smaller. Sometimes cuts it when shaving. * Regarding heartburn, has had breakthrough symptoms for the past 1.5wks heartburn despite PPI and F0gfopgsx therapy. Denies change in diet or other trigger. Attributed to menses. [facility] DO Work Phone: History of Present illness Narrative* Patient presents today for shave biopsy of R lateral knee lesion. First noticed many years ago. Gets bigger and smaller. Sometimes cuts it when shaving. * Regarding heartburn, has had breakthrough symptoms for the past 1.5wks heartburn despite PPI and B5zcbmgbd therapy. Denies change in diet or other trigger. Attributed to menses. [facility] Work Phone: History of Present illness Narrativemind is racing, normally sleeping well, low motivation-[facility] DO Work Phone: Reason for referral (narrative)* Consultation (Routine) - Authorized Specialty Diagnoses / Procedures Referred By Yamilet graves Referred To Contact Primary Care Diagnoses Anxiety Procedures Follow Up In Primary Care - Established Molly Cohen DO [address] [facility] [address] [place] [address] Referral ID Status Reason Start Date Expiration Date V isits Requested Visits Authorized [id number] Authorized 06/04/2023 06/03/2024 1 1 [facility] Work Phone: Reason for referral (narrative)* Consultation (Routine) - Authorized Specialty Diagnoses / Procedures Referred By Contac t Referred To Contact Primary Care Diagnoses Anxiety Encounter for screening mammogram for breast cancer Routine general medical examination at a health care facility Procedures Follow Up In Primary Care - Established Molly Cohen DO [address] [address] Referral ID Status Reason Start Date Expiration Date V isits Requested Visits Authorized [id number] Authorized 10/02/2023 10/01/2024 1 1 * Imaging (Routine) - Authorized Specialty Diagnoses / Procedures Referred By Contac t Referred To Contact Radiology Diagnoses Encounter for screening mammogram for breast cancer Procedures BI mammo bilateral screening tomosynthesis Molly Cohen DO [address] [address] Referral ID Status Reason Start Date Expiration Date Visits Requested Visits Authorized [id number] Authorized Perform Procedure 10/02/2023 10/01/2024 1 1 [facility] Work Phone: Reason for visit Narrative* Imaging (Routine) - Authorized Specialty Diagnoses / Procedures Referred By Contac t Referred To Contact Radiology Diagnoses Acute cough Procedures XR chest 2 views Molly Cohen DO [address] [address] Phone: tel: fax: Referral ID Status Reason Start Date Expiration Date Visits Requested Visits Authorized [id number] Authorized Perform Procedure 07/06/2024 07/06/2025 1 1 [facility] Work Phone: Reason for visit Narrative* Imaging (Emergency) - Authorized Specialty Diagnoses / Procedures Referred By Yamilet t Referred To Contact Radiology Diagnoses Acute cough Procedures XR chest 2 views Carolyn Saavedra, 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-[facility]FT [address] [place] [address] Phone: tel: fax: Referral ID Status Reason Start Date Expiration Date Visits Requested Visits Authorized [id number] Authorized Perform Procedure 4 08/02/2025 1 1 [facility] Work Phone: Summary Purpose Family History No Family History Records Found Mother Name Dates Details Family history of chronic ob structive pulmonary disease(V17.6, Z82.5) Status:Active Family history of diabetes m ellitus(V18.0, Z83.3) Status:Active Grandparent Name Dates Details Family history of malignant neoplasm(V16.9, Z80.9) Status:Active Mother Name Dates Details Family history of chronic ob structive pulmonary disease(V17.6, Z82.5) Status:Active Family history of diabetes m ellitus(V18.0, Z83.3) Status:Active Family history of hypertensi on(V17.49, Z82.49) Status:Active Family history of cardiac di sorder(V17.49, Z82.49) Status:Active Grandparent Name Dates Details Family history of malignant neoplasm(V16.9, Z80.9) Status:Active Mother Name Dates Details Family history of chronic ob structive pulmonary disease(V17.6, Z82.5) Status:Active Family history of diabetes m ellitus(V18.0, Z83.3) Status:Active Family history of hypertensi on(V17.49, Z82.49) Status:Active Family history of cardiac di sorder(V17.49, Z82.49) Status:Active Unknown Family Member Name Dates Details Family history of chronic ob structive pulmonary disease: Mother(V17.6, Z82.5) Status:Active Family history of diabetes m ellitus: Mother(V18.0, Z83.3) Status:Active Family history of hypertensi on: Mother(V17.49, Z82.49) Status:Active Family history of cardiac di sorder: Mother(V17.49, Z82.49) Status:Active Family history of malignant neoplasm: Grandparent(V16.9, Z80.9) Status:Active Unknown Family Member Name Dates Details Family history of chronic ob structive pulmonary disease: Mother(V17.6, Z82.5) Status:Active Family history of diabetes m ellitus: Mother(V18.0, Z83.3) Status:Active Family history of hypertensi on: Mother(V17.49, Z82.49) Status:Active Family history of cardiac di sorder: Mother(V17.49, Z82.49) Status:Active Family history of malignant neoplasm: Grandparent(V16.9, Z80.9) Status:Active Unknown Family Member Name Dates Details Family history of chronic ob structive pulmonary disease: Mother(V17.6, Z82.5) Status:Active Family history of diabetes m ellitus: Mother(V18.0, Z83.3) Status:Active Family history of hypertensi on: Mother(V17.49, Z82.49) Status:Active Family history of cardiac di sorder: Mother(V17.49, Z82.49) Status:Active Family history of malignant neoplasm: Grandparent(V16.9, Z80.9) Status:Active Unknown Family Member Name Dates Details Family history of chronic ob structive pulmonary disease: Mother(V17.6, Z82.5) Status:Active Family history of diabetes m ellitus: Mother(V18.0, Z83.3) Status:Active Family history of hypertensi on: Mother(V17.49, Z82.49) Status:Active Family history of cardiac di sorder: Mother(V17.49, Z82.49) Status:Active Family history of malignant neoplasm: Grandparent(V16.9, Z80.9) Status:Active Unknown Family Member Name Dates Details Family history of chronic ob structive pulmonary disease: Mother(V17.6, Z82.5) Status:Active Family history of diabetes m ellitus: Mother(V18.0, Z83.3) Status:Active Family history of hypertensi on: Mother(V17.49, Z82.49) Status:Active Family history of cardiac di sorder: Mother(V17.49, Z82.49) Status:Active Family history of malignant neoplasm: Grandparent(V16.9, Z80.9) Status:Active Unknown Family Member Name Dates Details Family history of chronic ob structive pulmonary disease: Mother(V17.6, Z82.5) Status:Active Family history of diabetes m ellitus: Mother(V18.0, Z83.3) Status:Active Family history of hypertensi on: Mother(V17.49, Z82.49) Status:Active Family history of cardiac di sorder: Mother(V17.49, Z82.49) Status:Active Family history of malignant neoplasm: Grandparent(V16.9, Z80.9) Status:Active Unknown Family Member Name Dates Details Family history of chronic ob structive pulmonary disease: Mother(V17.6, Z82.5) Status:Active Family history of diabetes m ellitus: Mother(V18.0, Z83.3) Status:Active Family history of hypertensi on: Mother(V17.49, Z82.49) Status:Active Family history of cardiac di sorder: Mother(V17.49, Z82.49) Status:Active Family history of malignant neoplasm: Grandparent(V16.9, Z80.9) Status:Active Unknown Family Member Name Dates Details Family history of chronic ob structive pulmonary disease: Mother(V17.6, Z82.5) Status:Active Family history of diabetes m ellitus: Mother(V18.0, Z83.3) Status:Active Family history of hypertensi on: Mother(V17.49, Z82.49) Status:Active Family history of cardiac di sorder: Mother(V17.49, Z82.49) Status:Active Family history of malignant neoplasm: Grandparent(V16.9, Z80.9) Status:Active Unknown Family Member Name Dates Details Family history of chronic ob structive pulmonary disease: Mother(V17.6, Z82.5) Status:Active Family history of diabetes m ellitus: Mother(V18.0, Z83.3) Status:Active Family history of hypertensi on: Mother(V17.49, Z82.49) Status:Active Family history of cardiac di sorder: Mother(V17.49, Z82.49) Status:Active Family history of malignant neoplasm: Grandparent(V16.9, Z80.9) Status:Active Unknown Family Member Name Dates Details Family history of chronic ob structive pulmonary disease: Mother(V17.6, Z82.5) Status:Active Family history of diabetes m ellitus: Mother(V18.0, Z83.3) Status:Active Family history of hypertensi on: Mother(V17.49, Z82.49) Status:Active Family history of cardiac di sorder: Mother(V17.49, Z82.49) Status:Active Family history of malignant neoplasm: Grandparent(V16.9, Z80.9) Status:Active Unknown Family Member Name Dates Details Family history of chronic ob structive pulmonary disease: Mother(V17.6, Z82.5) Status:Active Family history of diabetes m ellitus: Mother(V18.0, Z83.3) Status:Active Family history of hypertensi on: Mother(V17.49, Z82.49) Status:Active Family history of cardiac di sorder: Mother(V17.49, Z82.49) Status:Active Family history of malignant neoplasm: Grandparent(V16.9, Z80.9) Status:Active Unknown Family Member Name Dates Details Family history of chronic ob structive pulmonary disease: Mother(V17.6, Z82.5) Status:Active Family history of diabetes m ellitus: Mother(V18.0, Z83.3) Status:Active Family history of hypertensi on: Mother(V17.49, Z82.49) Status:Active Family history of cardiac di sorder: Mother(V17.49, Z82.49) Status:Active Family history of malignant neoplasm: Grandparent(V16.9, Z80.9) Status:Active Unknown Family Member Name Dates Details Family history of chronic ob structive pulmonary disease: Mother(V17.6, Z82.5) Status:Active Family history of diabetes m ellitus: Mother(V18.0, Z83.3) Status:Active Family history of hypertensi on: Mother(V17.49, Z82.49) Status:Active Family history of cardiac di sorder: Mother(V17.49, Z82.49) Status:Active Family history of malignant neoplasm: Grandparent(V16.9, Z80.9) Status:Active Unknown Family Member Name Dates Details Family history of chronic ob structive pulmonary disease: Mother(V17.6, Z82.5) Status:Active Family history of diabetes m ellitus: Mother(V18.0, Z83.3) Status:Active Family history of hypertensi on: Mother(V17.49, Z82.49) Status:Active Family history of cardiac di sorder: Mother(V17.49, Z82.49) Status:Active Family history of malignant neoplasm: Grandparent(V16.9, Z80.9) Status:Active Unknown Family Member Name Dates Details Family history of chronic ob structive pulmonary disease: Mother(V17.6, Z82.5) Status:Active Family history of diabetes m ellitus: Mother(V18.0, Z83.3) Status:Active Family history of hypertensi on: Mother(V17.49, Z82.49) Status:Active Family history of cardiac di sorder: Mother(V17.49, Z82.49) Status:Active Family history of malignant neoplasm: Grandparent(V16.9, Z80.9) Status:Active Unknown Family Member Name Dates Details Family history of chronic ob structive pulmonary disease: Mother(V17.6, Z82.5) Status:Active Family history of diabetes m ellitus: Mother(V18.0, Z83.3) Status:Active Family history of hypertensi on: Mother(V17.49, Z82.49) Status:Active Family history of cardiac di sorder: Mother(V17.49, Z82.49) Status:Active Family history of malignant neoplasm: Grandparent(V16.9, Z80.9) Status:Active Unknown Family Member Name Dates Details Family history of chronic ob structive pulmonary disease: Mother(V17.6, Z82.5) Status:Active Family history of diabetes m ellitus: Mother(V18.0, Z83.3) Status:Active Family history of hypertensi on: Mother(V17.49, Z82.49) Status:Active Family history of cardiac di sorder: Mother(V17.49, Z82.49) Status:Active Family history of malignant neoplasm: Grandparent(V16.9, Z80.9) Status:Active Unknown Family Member Name Dates Details Family history of chronic ob structive pulmonary disease: Mother(V17.6, Z82.5) Status:Active Family history of diabetes m ellitus: Mother(V18.0, Z83.3) Status:Active Family history of hypertensi on: Mother(V17.49, Z82.49) Status:Active Family history of cardiac di sorder: Mother(V17.49, Z82.49) Status:Active Family history of malignant neoplasm: Grandparent(V16.9, Z80.9) Status:Active Unknown Family Member Name Dates Details Family history of chronic ob structive pulmonary disease: Mother(V17.6, Z82.5) Status:Active Family history of diabetes m ellitus: Mother(V18.0, Z83.3) Status:Active Family history of hypertensi on: Mother(V17.49, Z82.49) Status:Active Family history of cardiac di sorder: Mother(V17.49, Z82.49) Status:Active Family history of malignant neoplasm: Grandparent(V16.9, Z80.9) Status:Active Unknown Family Member Name Dates Details Family history of chronic ob structive pulmonary disease: Mother(V17.6, Z82.5) Status:Active Family history of diabetes m ellitus: Mother(V18.0, Z83.3) Status:Active Family history of hypertensi on: Mother(V17.49, Z82.49) Status:Active Family history of cardiac di sorder: Mother(V17.49, Z82.49) Status:Active Family history of malignant neoplasm: Grandparent(V16.9, Z80.9) Status:Active Unknown Family Member Name Dates Details Family history of malignant neoplasm: Grandparent(V16.9, Z80.9) Status:Active Family history of cardiac di sorder: Mother(V17.49, Z82.49) Status:Active Family history of hypertensi on: Mother(V17.49, Z82.49) Status:Active Family history of diabetes m ellitus: Mother(V18.0, Z83.3) Status:Active Family history of chronic ob structive pulmonary disease: Mother(V17.6, Z82.5) Status:Active Unknown Family Member Name Dates Details Family history of chronic ob structive pulmonary disease: Mother(V17.6, Z82.5) Status:Active Family history of diabetes m ellitus: Mother(V18.0, Z83.3) Status:Active Family history of hypertensi on: Mother(V17.49, Z82.49) Status:Active Family history of cardiac di sorder: Mother(V17.49, Z82.49) Status:Active Family history of malignant neoplasm: Grandparent(V16.9, Z80.9) Status:Active Unknown Family Member Name Dates Details Family history of chronic ob structive pulmonary disease: Mother(V17.6, Z82.5) Status:Active Family history of diabetes m ellitus: Mother(V18.0, Z83.3) Status:Active Family history of hypertensi on: Mother(V17.49, Z82.49) Status:Active Family history of cardiac di sorder: Mother(V17.49, Z82.49) Status:Active Family history of malignant neoplasm: Grandparent(V16.9, Z80.9) Status:Active Unknown Family Member Name Dates Details Family history of chronic ob structive pulmonary disease: Mother(V17.6, Z82.5) Status:Active Family history of diabetes m ellitus: Mother(V18.0, Z83.3) Status:Active Family history of hypertensi on: Mother(V17.49, Z82.49) Status:Active Family history of cardiac di sorder: Mother(V17.49, Z82.49) Status:Active Family history of malignant neoplasm: Grandparent(V16.9, Z80.9) Status:Active Unknown Family Member Name Dates Details Family history of chronic ob structive pulmonary disease: Mother(V17.6, Z82.5) Status:Active Family history of diabetes m ellitus: Mother(V18.0, Z83.3) Status:Active Family history of hypertensi on: Mother(V17.49, Z82.49) Status:Active Family history of cardiac di sorder: Mother(V17.49, Z82.49) Status:Active Family history of malignant neoplasm: Grandparent(V16.9, Z80.9) Status:Active Unknown Family Member Name Dates Details Family history of chronic ob structive pulmonary disease: Mother(V17.6, Z82.5) Status:Active Family history of diabetes m ellitus: Mother(V18.0, Z83.3) Status:Active Family history of hypertensi on: Mother(V17.49, Z82.49) Status:Active Family history of cardiac di sorder: Mother(V17.49, Z82.49) Status:Active Family history of malignant neoplasm: Grandparent(V16.9, Z80.9) Status:Active Unknown Family Member Name Dates Details Family history of chronic ob structive pulmonary disease: Mother(V17.6, Z82.5) Status:Active Family history of diabetes m ellitus: Mother(V18.0, Z83.3) Status:Active Family history of hypertensi on: Mother(V17.49, Z82.49) Status:Active Family history of cardiac di sorder: Mother(V17.49, Z82.49) Status:Active Family history of malignant neoplasm: Grandparent(V16.9, Z80.9) Status:Active Unknown Family Member Name Dates Details Family history of chronic ob structive pulmonary disease: Mother(V17.6, Z82.5) Status:Active Family history of diabetes m ellitus: Mother(V18.0, Z83.3) Status:Active Family history of hypertensi on: Mother(V17.49, Z82.49) Status:Active Family history of cardiac di sorder: Mother(V17.49, Z82.49) Status:Active Family history of malignant neoplasm: Grandparent(V16.9, Z80.9) Status:Active Unknown Family Member Name Dates Details Family history of chronic ob structive pulmonary disease: Mother(V17.6, Z82.5) Status:Active Family history of diabetes m ellitus: Mother(V18.0, Z83.3) Status:Active Family history of hypertensi on: Mother(V17.49, Z82.49) Status:Active Family history of cardiac di sorder: Mother(V17.49, Z82.49) Status:Active Family history of malignant neoplasm: Grandparent(V16.9, Z80.9) Status:Active Unknown Family Member Name Dates Details Family history of chronic ob structive pulmonary disease: Mother(V17.6, Z82.5) Status:Active Family history of diabetes m ellitus: Mother(V18.0, Z83.3) Status:Active Family history of hypertensi on: Mother(V17.49, Z82.49) Status:Active Family history of cardiac di sorder: Mother(V17.49, Z82.49) Status:Active Family history of malignant neoplasm: Grandparent(V16.9, Z80.9) Status:Active Unknown Family Member Name Dates Details Family history of malignant neoplasm: Grandparent(V16.9, Z80.9) Status:Active Family history of cardiac di sorder: Mother(V17.49, Z82.49) Status:Active Family history of hypertensi on: Mother(V17.49, Z82.49) Status:Active Family history of chronic ob structive pulmonary disease: Mother(V17.6, Z82.5) Status:Active Family history of diabetes m ellitus: Mother(V18.0, Z83.3) Status:Active Unknown Family Member Name Dates Details Family history of chronic ob structive pulmonary disease: Mother(V17.6, Z82.5) Status:Active Family history of diabetes m ellitus: Mother(V18.0, Z83.3) Status:Active Family history of hypertensi on: Mother(V17.49, Z82.49) Status:Active Family history of cardiac di sorder: Mother(V17.49, Z82.49) Status:Active Family history of malignant neoplasm: Grandparent(V16.9, Z80.9) Status:Active Unknown Family Member Name Dates Details Family history of chronic ob structive pulmonary disease: Mother(V17.6, Z82.5) Status:Active Family history of diabetes m ellitus: Mother(V18.0, Z83.3) Status:Active Family history of hypertensi on: Mother(V17.49, Z82.49) Status:Active Family history of cardiac di sorder: Mother(V17.49, Z82.49) Status:Active Family history of malignant neoplasm: Grandparent(V16.9, Z80.9) Status:Active Unknown Family Member Name Dates Details Family history of chronic ob structive pulmonary disease: Mother(V17.6, Z82.5) Status:Active Family history of diabetes m ellitus: Mother(V18.0, Z83.3) Status:Active Family history of hypertensi on: Mother(V17.49, Z82.49) Status:Active Family history of cardiac di sorder: Mother(V17.49, Z82.49) Status:Active Family history of malignant neoplasm: Grandparent(V16.9, Z80.9) Status:Active Unknown Family Member Name Dates Details Family history of chronic ob structive pulmonary disease: Mother(V17.6, Z82.5) Status:Active Family history of diabetes m ellitus: Mother(V18.0, Z83.3) Status:Active Family history of hypertensi on: Mother(V17.49, Z82.49) Status:Active Family history of cardiac di sorder: Mother(V17.49, Z82.49) Status:Active Family history of malignant neoplasm: Grandparent(V16.9, Z80.9) Status:Active Unknown Family Member Name Dates Details Family history of chronic ob structive pulmonary disease: Mother(V17.6, Z82.5) Status:Active Family history of diabetes m ellitus: Mother(V18.0, Z83.3) Status:Active Family history of hypertensi on: Mother(V17.49, Z82.49) Status:Active Family history of cardiac di sorder: Mother(V17.49, Z82.49) Status:Active Family history of malignant neoplasm: Grandparent(V16.9, Z80.9) Status:Active Unknown Family Member Name Dates Details Family history of chronic ob structive pulmonary disease: Mother(V17.6, Z82.5) Status:Active Family history of diabetes m ellitus: Mother(V18.0, Z83.3) Status:Active Family history of hypertensi on: Mother(V17.49, Z82.49) Status:Active Family history of cardiac di sorder: Mother(V17.49, Z82.49) Status:Active Family history of malignant neoplasm: Grandparent(V16.9, Z80.9) Status:Active Unknown Family Member Name Dates Details Family history of chronic ob structive pulmonary disease: Mother(V17.6, Z82.5) Status:Active Family history of diabetes m ellitus: Mother(V18.0, Z83.3) Status:Active Family history of hypertensi on: Mother(V17.49, Z82.49) Status:Active Family history of cardiac di sorder: Mother(V17.49, Z82.49) Status:Active Family history of malignant neoplasm: Grandparent(V16.9, Z80.9) Status:Active Unknown Family Member Name Dates Details Family history of chronic ob structive pulmonary disease: Mother(V17.6, Z82.5) Status:Active Family history of diabetes m ellitus: Mother(V18.0, Z83.3) Status:Active Family history of hypertensi on: Mother(V17.49, Z82.49) Status:Active Family history of cardiac di sorder: Mother(V17.49, Z82.49) Status:Active Family history of malignant neoplasm: Grandparent(V16.9, Z80.9) Status:Active Unknown Family Member Name Dates Details Family history of chronic ob structive pulmonary disease: Mother(V17.6, Z82.5) Status:Active Family history of diabetes m ellitus: Mother(V18.0, Z83.3) Status:Active Family history of hypertensi on: Mother(V17.49, Z82.49) Status:Active Family history of cardiac di sorder: Mother(V17.49, Z82.49) Status:Active Family history of malignant neoplasm: Grandparent(V16.9, Z80.9) Status:Active Advance Directives No Advanced Directives Records FoundDocuments on File Type Date 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 Advance Directives and Living Will Latest Code Status on File Code Status Date Activated Date Inactivated Comments Full Code 05/13/2023 7:48 AM Question Answer Comments Plan of Care: Code Status Discussion Completed Decision Maker: Patient Latest Code Status on File Code Status Date Activated Date Inactivated Comments Full Code 05/13/2023 7:48 AM 05/13/2023 2:28 PM Question Answer Comments Plan of Care: Code Status Discussion Completed Decision Maker: Patient Latest Code Status on File Code Status Date Activated Date Inactivated Comments Full Code 06/10/2023 8:59 AM Question Answer Comments Plan of Care: Code Status Discussion Completed Decision Maker: Patient Code Status History Code Status Date Activated Date Inactivated Comments Full Code 05/13/2023 7:48 AM 05/13/2023 2:28 PM Question Answer Comments Plan of Care: Code Status Discussion Completed Decision Maker: Patient Advance Directive Response Recorded Date/ Time Advance Directives No January 23 9:40am Living Will No December 22, 2015 9 :19am Power of Suspension Cord Tier No December 22, 2015 9:19am Latest Code Status on File Code Status Date Activated Date Inactivated Comments Full Code 06/10/2023 8:59 AM 06/10/2023 2:44 PM Question Answer Comments Plan of Care: Code Status Discussion Completed Decision Maker: Patient Code Status History Code Status Date Activated Date Inactivated Comments Full Code 05/13/2023 7:48 AM 05/13/2023 2:28 PM Question Answer Comments Plan of Care: Code Status Discussion Completed Decision Maker: Patient Date Activated Date Inactivated Comments 06/10/2023 8:59 AM 06/10/2023 2:44 PM Question Answer Comments Plan of Care: Code Status Discussion Completed Decision Maker: Patient Date Activated Date Inactivated Comments 05/13/2023 7:48 AM 05/13/2023 2:28 PM Question Answer Comments Plan of Care: Code Status Discussion Completed Decision Maker: Patient Chief Complaint Patient here for Xolair treatmentPatient here for Xolair treatmentHaving a allergic reaction to the band aid Started that night FridayHaving a allergic reaction to the band aid Started that night FridayWould like reaction checked on right shoulderPossible Office surgery deeper Shave Biopsy Right Shoulder Possible Office surgery deeper Shave Biopsy Right ShoulderPatient here for Xolair treatmentHaving joint pain in ankles and left wrist Been treated before with prednisone referred to ortho then4 Month recheck Was in ER last night but was not seen has a allergic reaction to something4 Month recheck Was in ER last night but was not seen had a allergic reaction* A telephone visit (audio only) between the patient (at the originating site) and the provider (at the distant site) was utilized to provide this telehealth service. * Verbal consent was requested and obtained from ZULY CLINE on this date, 06/11/2021 09:40 AM, for a telehealth visit. * Follow up for hives. Xolair injectionsright leg shave biospyright leg shave biospyHere today for reaction where blood was drawn and where we did biopsy one week agoHere today for reaction where blood was drawn and where we did biopsy one week agoStarted with a bruise last Friday itchy at times.3 month check. No concernsHere today to discuss her medication* A telephone visit (audio only) between the patient (at the originating site) and the provider (at the distant site) was utilized to provide this telehealth service. * Telephone visit has a sore throat since last Friday , slight headache, mostly on right side,possible swollen gland on the right side she has been around children that have been diagnosed with strep throat Reason for Referral Specialty Diagnoses / Procedures Referred By Yamilet graves Referred To Contact Diagnoses LUE weakness Paresthesia of left upper extremity Procedures EMG & nerve conduction Molly Cohen DO [address] [address] Referral ID Status Reason Start Date Expiration Date V isits Requested Visits Authorized [id number] Authorized 11/26/2022 05/25/2023 1 1 Specialty Diagnoses / Procedures Referred By Yamilet graves Referred To Contact Diagnoses Other hydronephrosis Calculus of ureter Faviola Kelley MD [address] [place] [id number] Referral ID Status Reason Start Date Expiration Date V isits Requested Visits Authorized [id number] Pending Review 1 1 Specialty Diagnoses / Procedures Referred By Yamilet graves Referred To Contact Diagnoses Kidney stone Faviola Kelley MD [address] [place] [address] Referral ID Status Reason Start Date Expiration Date Visits Re quested Visits Authorized [id number] Closed 1 1 Specialty Diagnoses / Procedures Referred By Yamilet graves Referred To Contact Radiology Diagnoses Encounter for screening mammogram for breast cancer Procedures BI mammo bilateral screening tomosynthesis Molly Cohen, DO [address] [address] Referral ID Status Reason Start Date Expiration Date Visits Requested Visits Authorized [id number] Authorized Perform Procedure 10/02/2023 10/01/2024 1 1 Additional Source Comments INFORMATION SOURCE (unrecogn ized section and content) DATE CREATED AUTHOR 05/02/2019 [facility] DATE CREATED AUTHOR AUTHOR'S ORGANIZ ATION 04/06/2020 [facility] DATE CREATED AUTHOR AUTHOR'S ORGANIZ ATION 07/29/[address] [facility] DATE CREATED AUTHOR AUTHOR'S ORGANIZ ATION 09/11/2022 [facility] DATE CREATED AUTHOR AUTHOR'S ORGANIZ ATION 09/11/2022 [facility] DATE CREATED AUTHOR AUTHOR'S ORGANIZ ATION 12/18/2022 [facility] DATE CREATED AUTHOR AUTHOR'S ORGANIZ ATION 05/08/2023 [facility] DATE CREATED AUTHOR AUTHOR'S ORGANIZ ATION 02/23/2024 [facility] DATE CREATED AUTHOR AUTHOR'S ORGANIZ ATION 07/08/2024 [facility] DATE CREATED AUTHOR AUTHOR'S ORGANIZ ATION 08/06/2024 [facility] <item><item><item><item><item> Privacy Markings (unrecogniz ed section and content) Section Author: Niurka Quan PROHIBITION ON REDISCLOSURE OF CONFIDENTIAL INFORMATION This notice accompanies a disclosure of information concerning a client made to you with the consent of such client. Section Author: Niurka Quan PROHIBITION ON REDISCLOSURE OF CONFIDENTIAL INFORMATION This notice accompanies a disclosure of information concerning a client made to you with the consent of such client. Section Author: Niurka Quan PROHIBITION ON REDISCLOSURE OF CONFIDENTIAL INFORMATION This notice accompanies a disclosure of information concerning a client made to you with the consent of such client. Section Author: Niurka Quan PROHIBITION ON REDISCLOSURE OF CONFIDENTIAL INFORMATION This notice accompanies a disclosure of information concerning a client made to you with the consent of such client. Section Author: Niurka Quan PROHIBITION ON REDISCLOSURE OF CONFIDENTIAL INFORMATION This notice accompanies a disclosure of information concerning a client made to you with the consent of such client. Care Teams (unrecognized sec tion and content) Heel Molder Relationship Specialty Start Date End Date Molly Cohen DO [address] [id number] PCP - General Family Medicine 06/07/21 Heel Molder Relationship Specialty Start Date End Date Molly Cohen DO [address] [address] PCP - General Family Medicine 06/07/21 Heel Molder Relationship Specialty Start Date End Date Molly Cohen DO [address] [address] PCP - General 10/03/19 Cohen Molly Aquino, [address] [address] PCP - [facility] PCP 12/02/21 Heel Molder Relationship Specialty Start Date End Date Molly Cohen DO [address] [address] PCP - General Family Medicine 06/07/21 Heel Molder Relationship Specialty Start Date End Date Bita Cohendikatrina AquinoDO [address] [address] PCP - General 10/03/19 Bita Cohendith Miles, DO [address] [address] PCP - [facility] PCP 12/02/21 Heel Molder Relationship Specialty Start Date End Date CohenBitaMollyscooter Aquino DO [address] [address] PCP - General 10/03/19 Molly Cohen, DO [address] [address] PCP - [facility] PCP 12/02/21 Heel Molder Relationship Specialty Start Date End Date CohenSudeepth A, DO [address] [facility] [address] [place] [address] PCP - General 10/03/19 CohenBitaMolly A, DO [address] [facility] [address] [place] [address] PCP - [facility] PCP 12/02/21 Team Status: Active Member Role Status Dates No Primary Care Physician Family Provider Active No Primary Care Physician Primary Care Provider Active Team Status: Inactive Member Role Status Dates No Primary Care Physician Primary Care Provider Active Dr. Jose Armando Courtney MD Attending Provider, [facility] Provider Active Heel Molder Relationship Specialty Start Date End Date CohenSudeepth A, DO [address] [facility] [address] [place] [address] PCP - General 10/03/19 CohenBitaMolly A, DO [address] [facility] [address] [place] [address] PCP - [facility] P[facility] 12/02/21 Heel Molder Relationship Specialty Start Date End Date CohenSudeepth A, DO [address] [facility] [address] [place] [address] PCP - General 10/03/19 CohenBitaMolly A, DO [address] [facility] [address] [place] [address] PCP - [facility] PCP 12/02/21 Heel Molder Relationship Specialty Start Date End Date CohenBitaMolly A, DO [address] [facility] [address] [place] [address] PCP - General 10/03/19 Cohen Molly A, DO [address] [address] PCP - [facility] PCP 12/02/21 Heel Molder Relationship Specialty Start Date End Date CohenBitaMolly A, DO [address] [address] PCP - General 10/03/19 Molly Cohen A, DO [address] [address] PCP - [facility] PCP 12/02/21 Heel Molder Relationship Specialty Start Date End Date Cohen Molly A, DO [address] [address] PCP - General 10/03/19 Molly Cohen A, DO [address] [address] PCP - [facility] PCP 12/02/21 Heel Molder Relationship Specialty Start Date End Date Molly Cohen, DO [address] [address] PCP - General 10/03/19 Molly Cohen A, DO [address] [address] PCP - [facility] PCP 12/02/21 Heel Molder Relationship Specialty Start Date End Date Cohen Molly A, DO [address] [address] PCP - General 10/03/19 Molly Cohen DO [address] [address] PCP - [facility] P[facility] 12/02/21 Reason for Visit (unrecogniz ed section and content) Reason Comments Ingrown Toenail R great toe nail ing rown x 2-3 mos Reason Comments Shoulder Pain Arm Pain Reason Comments Nail Problem Toenails are discolo red. Specialty Diagnoses / Procedures Referred By Yamilet t Referred To Contact Diagnoses Calculus of ureter Other hydronephrosis Calculus of ureter [N20.1] Other hydronephrosis [N13.39] Procedures CA CYSTO/URETERO W/LITHOTRIPSY &INDWELL STENT INSRT CYSTO R RPG R UETER W/TATIANA R STENT Faviola Kelley MD [address] [facility] [address] [place] [address] [address] Referral ID Status Reason Start Date Expiration Date Visits Re quested Visits Authorized [id number] 1 1 Specialty Diagnoses / Procedures Referred By Contac t Referred To Contact Diagnoses Kidney stone Kidney stone [N20.0] Procedures CA LITHOTRIPSY XTRCORP SHOCK WAVE Lithotripsy Extracorporeal Shock Wave Faviola Kelley MD [address] [place] [address] [address] Referral ID Status Reason Start Date Expiration Date Visits Re quested Visits Authorized [id number] 1 1 Specialty Diagnoses / Procedures Referred By Contac t Referred To Contact Radiology Diagnoses Encounter for screening mammogram for breast cancer Procedures BI mammo bilateral screening tomosynthesis Molly Cohen DO [address] [facility] [address] [place] [address] Referral ID Status Reason Start Date Expiration Date Visits Requested Visits Authorized [id number] Authorized Perform Procedure 10/02/2023 10/01/2024 1 1 Reason Comments URI Dental pain, fever, congestion, right ear pain x 2 days Scheduled Active and Recently Administ ered Medications (unrecognized section and content) Medication Order 05/11/2023 05/12/2023 05/13/2023 acetaminophen (Tylenol) tablet 975 mg (COMPLETED) 975 mg, oral, Once, On Fri05/13/23 at 0800, For 1 dose, Preprocedure, Administer with small amount of water preoperatively., If ordered PRN for pain, nurse is permitted to administer this medication for higher pain scores based on patient preference? Yes 0837 (Given - Provid er: Doreen Dior RN) dexAMETHasone (PF) (Decadron) injection 8 mg (COMPLETED) 8 mg, intravenous, Once, On Fri05/13/23 at 0800, For 1 dose, Preprocedure 0840 (Given - Provid er: Doreen Dior RN) lidocaine PF (Xylocaine) 10 mg/mL (1 %) injection 1 mg 1 mg (0.1 mL), subcutaneous, Once, On Fri05/13/23 at 0800, For 1 dose, Recovery (only), To be used for IV insertion ONLY 0800 (Due) ondansetron (Zofran) injection 4 mg (COMPLETED) 4 mg, intravenous, Once, On Fri05/13/23 at 0800, For 1 dose, Preprocedure, When administering via IV Push, administer over 3-5 minutes. 0839 (Given - Provid er: Doreen Dior RN) Continuous Medication Order 05/11/2023 05/12/2023 05/13/2023 lactated Ringer's infusion 50 mL/hr, intravenous, Continuous, Starting on Fri05/13/23 at 0800, Preprocedure 0837 (New Bag - Prov ider: Doreen Dior RN)1220 (Stopped - Provider: Kadi Galeano RN) lactated Ringer's infusion 100 mL/hr, intravenous, Continuous, Starting on Fri05/13/23 at 0800, Recovery (only) 0800 (Due) PRN Medication Order 05/11/2023 05/12/2023 05/13/2023 iohexol (OMNIPaque) 300 mg iodine/mL injection (CANCELED) As needed, Starting on Fri05/13/23 at 0929, Intraprocedure 0929 (Given - Provid er: Faviola Kelley MD - Comment: intraureteral right) labetaloL (Normodyne,Trandate) injection 5 mg 5 mg, intravenous, Administer over 1 Minutes, Once as needed, systolic blood pressure greater than 180 mmHg, dystolic blood pressure greater than 100 mmHg and heart rate greater than 60 BPM, Starting on Fri05/13/23 at 0753, For 1 dose, Recovery (only) morphine injection 2 mg 2 mg, intravenous, Every 5 min PRN, pain moderate (4-6), first line, Starting on Fri05/13/23 at 0753, Recovery (only), Max total of 20 mg regardless of dose. morphine injection 4 mg 4 mg, intravenous, Every 5 min PRN, pain severe (7-10), first line, Starting on Fri05/13/23 at 0753, Recovery (only), Max total of 20 mg regardless of dose. ondansetron (Zofran) injection 4 mg (COMPLETED) 4 mg, intravenous, Once as needed, nausea/vomiting, first line, Starting on Fri05/13/23 at 0753, For 1 dose, Recovery (only), When administering via IV Push, administer over 3-5 minutes. 1012 (Given - Provid er: Yen Ramos RN - Comment: Per dr. marion, give first) oxyCODONE (Roxicodone) immediate release tablet 5 mg 5 mg, oral, Every 4 hours PRN, pain mild (1-3), first line, Starting on Fri05/13/23 at 0753, Recovery (only), When able to take oral medications., If ordered PRN for pain, nurse is permitted to administer this medication for higher pain scores based on patient preference? Yes promethazine (Phenergan) 6.25 mg in sodium chloride 0.9% 50 mL IV (COMPLETED) 6.25 mg, intravenous, Administer over 15 Minutes, Once as needed, Nausea/vomiting, second line, Starting on Fri05/13/23 at 0753, For 1 dose, Recovery (only) 1025 (New Bag - Prov ider: Yen Ramos, RN)1040 (Due: Stopped - Provider: Yen Ramos, RN) Scheduled Medication Order 06/08/2023 06/09/2023 06/10/2023 acetaminophen (Tylenol) tablet 975 mg (COMPLETED) 975 mg, oral, Once, On Fri06/10/23 at 0900, For 1 dose, Preprocedure, Administer with small amount of water preoperatively., If ordered PRN for pain, nurse is permitted to administer this medication for higher pain scores based on patient preference? Yes 0943 (Given - Provid er: Shanae Louis RN) dexAMETHasone (PF) (Decadron) injection 10 mg (COMPLETED) 10 mg, intravenous, Once, On Fri06/10/23 at 0900, For 1 dose, Preprocedure 0948 (Given - Provid er: Shanae Louis RN) famotidine PF (Pepcid) injection 20 mg (COMPLETED) 20 mg, intravenous, Once, On Fri06/10/23 at 0900, For 1 dose, Preprocedure 0948 (Given - Provid er: Shanae Louis RN) midazolam (Versed) injection 1 mg (COMPLETED) 1 mg, intravenous, Once, On Fri06/10/23 at 0900, For 1 dose, Preprocedure 0948 (Given - Provid er: Shanae Louis RN) ondansetron (Zofran) injection 4 mg (COMPLETED) 4 mg, intravenous, Once, On Fri06/10/23 at 0900, For 1 dose, Preprocedure, When administering via IV Push, administer over 3-5 minutes. 0947 (Given - Provid er: Shanae Louis RN) scopolamine (Transderm-Scop) patch 1 patch 1 patch, transdermal, Administer over 72 Hours, Once, On Fri06/10/23 at 0930, For 1 dose, Preprocedure, Apply to hairless area of skin behind the ear. 0945 (Medication Remedios lied - Provider: Shanae Louis RN) Continuous Medication Order 06/08/2023 06/09/2023 06/10/2023 lactated Ringer's infusion 75 mL/hr, intravenous, Continuous, Starting on Fri06/10/23 at 0900 0931 (New Bag - Prov ider: Shanae Louis RN)1005 (Continued by Anesthesia - Provider: Jose Singh DO)1050 (Anesthesia Volume Adjustment - Provider: Jose Singh DO)1225 (Stopped - Provider: Yen Ramos RN) lactated Ringer's infusion 100 mL/hr, intravenous, Continuous, Starting on Fri06/10/23 at 1115, Recovery (only) 1115 (Due) PRN Medication Order 06/08/2023 06/09/2023 06/10/2023 HYDROmorphone (Dilaudid) injection 0.5 mg 0.5 mg, intravenous, Every 5 min PRN, pain moderate (4-6), first line, Starting on Fri06/10/23 at 1100, Recovery (only), Max total of 4 mg regardless of dose. 1103 (Given - Provid er: Bhavana Costa RN) HYDROmorphone (Dilaudid) injection 0.5 mg 0.5 mg, intravenous, Every 5 min PRN, pain severe (7-10), first line, Starting on Fri06/10/23 at 1100, Recovery (only), Max total of 4 mg regardless of dose. meperidine (PF) (Demerol) injection 12.5 mg 12.5 mg, intravenous, Every 10 min PRN, shivering, Starting on Fri06/10/23 at 1100, Recovery (only), IF administered IV, patient should be lying down during administration. IV push should be administered slowly using a diluted solution. ondansetron (Zofran) injection 4 mg 4 mg, intravenous, Once as needed, nausea/vomiting, second line, Starting on Fri06/10/23 at 1100, For 1 dose, Recovery (only), When administering via IV Push, administer over 3-5 minutes. oxyCODONE (Roxicodone) immediate release tablet 5 mg 5 mg, oral, Every 4 hours PRN, pain mild (1-3), first line, Starting on Fri06/10/23 at 1100, Recovery (only), When able to take oral medications., If ordered PRN for pain, nurse is permitted to administer this medication for higher pain scores based on patient preference? Yes 1142 (Given - Provid er: Yen Ramos RN) oxygen (O2) therapy inhalation, Continuous PRN - O2/gases, other, Starting on Fri06/10/23 at 1100, Recovery (only), Device: Simple Face Mask, Rate in Liters per minute: 6 LPM, Keep O2 Sat Above: 92% promethazine (Phenergan) 6.25 mg in sodium chloride 0.9% 50 mL IV 6.25 mg, intravenous, Administer over 15 Minutes, Once as needed, Nausea/vomiting first line, Starting on Fri06/10/23 at 1100, For 1 dose, Recovery (only) Goals (unrecognized section and content) Goals may be documented in a n alternate sectionGoals may be documented in an alternate section FOR RECORDS PERTAINING TO PATIENTS WHO ARE OR HAVE BEEN ENROLLED IN A CHEMICAL DEPENDENCY/SUBSTANCEABUSE PROGRAM, SOME INFORMATION MAY BE OMITTED. This clinical summary was aggregated from multiple sources. Caution should be exercised in using it in the provision of clinical care. This summary normalizes information from multiple sources, and as a consequence, information in this document may materially change the coding, format and clinical context of patient data. In addition, data may be omitted in some cases. CLINICAL DECISIONS SHOULD BE BASED ON THE PRIMARY CLINICAL RECORDS. [employer] provides no warranty or guarantee of the accuracy or completeness of information in this document.
== END | disposition home or self-care (01) ==
DX: J32.8 Other chronic sinusitis (principal); M25.18 Fistula, other specified site
CPT/HCPCS: 70486